=== PATIENT | female | born 1980 | race Caucasian/White ===

== ENCOUNTER 2021-04-11 03:49 | Emergency (ER) | payer OTHER, SELFPAY ==
[2021-04-11 04:09] VITALS: RESP 20; BMI 57.4
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
--- NOTE | 2021-04-11 05:08 | ECG_ITS ---
Test Reason : MEICAL CLEARANCE Blood Pressure : / mmHG Vent. Rate : 103 BPM Atrial Rate : 103 BPM P-R Int : 134 ms QRS Dur : 084 ms QT Int : 342 ms P-R-T Axes : 066 017 061 degrees QTc Int : 448 ms Sinus tachycardia Otherwise normal ECG When compared with ECG of 05-JUN-2018 19:51, No significant change was found Referred By: Li Saravia Electronically Signed By:ROWENA CHO
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
--- NOTE | 2021-04-11 05:39 | PC.NURSE ---
Patient now asking to be called Doug Arredondo instead of Mauro . Labs drawn and sent for analysis. Will continue to monitor.
[2021-04-11 05:41] LABS: Basophils Percent Auto 0.3 % (0-2); Mean Platelet Volume 9.2 fL (9.4-12.3); PLT CLUMP 1; SCAN SMEAR FLAG 1
[2021-04-11 05:43] LABS: Eosinophils Absolute Auto 0.3 X10*3/uL (0.0-0.4); Hematocrit 43.9 % (37-47); Hemoglobin 14.5 g/dl (12.0-16.0); Imm Gran Abs Auto 0.09 X10*3/uL (0.00-0.03); Imm Gran Pct Auto 0.9 % (0.0-0.4); Lymphocytes Absolute Auto 2.4 X10*3/uL (1.2-4.9); Mean Corpuscular Hemoglobin 31.1 pg (27.0-33.0); Mean Corpuscular Volume 94.2 fL (80-98); Monocytes Absolute Auto 0.8 X10*3/uL (0.1-1.2); Monocytes Percent Auto 7.7 % (2-11); Neutrophils Absolute Auto 6.3 X10*3/uL (2.0-8.3); Neutrophils Percent Auto 64.1 % (45-73); Platelet Count 303 X10*3/uL (160-400); Red Blood Count 4.66 X10*6/uL (4.20-5.50); Red Cell Distribution Width 14.2 % (11.0-16.0); White Blood Count 9.8 X10*3/uL (4.8-10.8)
[2021-04-11 05:44] LABS: MANUAL DIFF FLAG SCAN
[2021-04-11 05:46] LABS: Prothrombin Time 11.3 SEC (10.8-13.0)
[2021-04-11 05:51] VITALS: BMI 56.3
[2021-04-11 06:01] LABS: Ethanol < 10 mg/dL
[2021-04-11 06:03] LABS: SLIDE REVIEW VERIFIED
[2021-04-11 06:06] LABS: Acetaminophen LAB < 1 mcg/mL (<30); Salicylate < 5.0 mg/dL (15-30)
[2021-04-11 06:08] LABS: Alanine Aminotransferase 18 U/L (0-31); Albumin Level 4.2 g/dL (3.5-5.0); Alkaline Phosphatase 81 U/L (39-117); Anion Gap 16 (12-20); Aspartate Amino Transferase 14 U/L (5-31); Bilirubin Direct < 0.2 mg/dL (0.0-0.5); Bilirubin Total < 0.2 mg/dL (0.0-1.0); Blood Urea Nitrogen 15 mg/dL (9-16); Calcium 9.6 mg/dL (8.4-10.2); Carbon Dioxide 23 mmol/L (22-29); Chloride 98 mmol/L (96-108); Creatinine Clr Calc Pharmacy 124.5; Estimated Glomerular Filt Rate > 60; Glucose Random 87 mg/dL (60-115); Lipase 41 U/L (8-78); Potassium 4.2 mmol/L (3.3-5.1); Sodium 133 mmol/L (135-145); Total Protein 7.2 g/dL (6.5-8.0)
[2021-04-11 06:25] LABS: TSH reflex Free T4 1.44 uIU/mL (0.32-4.0)
--- NOTE | 2021-04-11 06:58 | PC.NURSE ---
received report from prior RN patient appears to be resting well breathing unlabored even breaths. patient appears in no distress.
--- NOTE | 2021-04-11 09:14 | PC.NURSE ---
spoke to Tommy from [facility] [phone], to verify levothyroxine dose, clozaril dose and current status. provider verified that patient was current on meds and had invega justice last on 04/08. unclear when she is next due however tommy is due to return a call and inform us.
[2021-04-11 09:44] LABS: Acetaminophen LAB < 1 mcg/mL (<30); Salicylate < 5.0 mg/dL (15-30)
[2021-04-11 09:50] LABS: Valproate 41.3 mcg/mL (50.0-100.0)
[2021-04-11 10:59] VITALS: BP 150/90; PULSE 85
--- NOTE | 2021-04-11 12:12 | PM.PSYCN ---
History of Present Illness Date of Service: t Chief Complaint: crisis Reason for Consult: Assessment of Clozaril dosing Discussed with referring provider: Yes Sources of Information: patient interviewed and chart reviewed HPI Narrative: The patient is a 40 year old descendant female with a long history of psychosis, institutionalized, living in a prison, referred to ED due to exacerbation of psychosis and violente behavior. The medication reconciliation form was unclear regarding her Clozaril dose and the date of Invega Sustenna. During the inteview, the pateint was very irritable and unable to give us a clear answer. She was internally preoccupied, uncooperative and very angry. Past Psychiatric History: Schizoaffective disorder bipolar type, last admission a few weeks ago. [facility] Medical History (Updated 04/11/21 @ 12:18 by Manuel Dee) Asthma Bipolar disorder Chronic post-traumatic stress disorder (PTSD) Chronic post-traumatic stress disorder (PTSD) Hypothyroidism PCOS (polycystic ovarian syndrome) Polysubstance abuse Psychosis Schizoaffective disorder Substance abuse Suicidal ideation Diagnostics Vital Signs (24Hr): Vital Signs - 24 hr 04/11/21 04:09 04/11/21 10:59 Pulse Rate 85 Respiratory Rate 20 Blood Pressure 150/90 H Body Mass Index 56.3 Labs Results: 04/11/21 05:33 04/11/21 05:33 Labs: Laboratory Results - last 48 hr 04/11/21 04/11/21 04/11/21 05:33 05:33 05:33 WBC 9.8 RBC 4.66 Hgb 14.5 Hct 43.9 MCV 94.2 MCH 31.1 MCHC 33.0 RDW 14.2 Plt Count 303 MPV 9.2 L Immature Gran % (Auto) 0.9 H Neut % (Auto) 64.1 Lymph % (Auto) 24.0 [place] % (Auto) 7.7 Eos % (Auto) 3.0 Baso % (Auto) 0.3 Lymph # (Auto) 2.4 [place] # (Auto) 0.8 Eos # (Auto) 0.3 Baso # (Auto) 0.0 Abs Immat Gran (auto) 0.09 H Absolute Neuts (auto) 6.3 Absolute Nucleated RBC 0.000 Nucleated RBC % (auto) 0.0 Smear Tech's Comments VERIFIED PT 11.3 INR 1.0 Sodium 133 L Potassium 4.2 Chloride 98 Carbon Dioxide 23 Anion Gap 16 BUN 15 Creatinine 0.95 Estim Creat Clear Calc 124.5 Estimated GFR > 60 Random Glucose 87 Calcium 9.6 Total Bilirubin < 0.2 Direct Bilirubin < 0.2 AST 14 ALT 18 Alkaline Phosphatase 81 Total Protein 7.2 Albumin 4.2 Lipase 41 TSH Salicylates Acetaminophen Valproic Acid Ethyl Alcohol 04/11/21 04/11/21 04/11/21 05:33 05:35 09:12 WBC RBC Hgb Hct MCV MCH MCHC RDW Plt Count MPV Immature Gran % (Auto) Neut % (Auto) Lymph % (Auto) [place] % (Auto) Eos % (Auto) Baso % (Auto) Lymph # (Auto) [place] # (Auto) Eos # (Auto) Baso # (Auto) Abs Immat Gran (auto) Absolute Neuts (auto) Absolute Nucleated RBC Nucleated RBC % (auto) Smear Tech's Comments PT INR Sodium Potassium Chloride Carbon Dioxide Anion Gap BUN Creatinine Estim Creat Clear Calc Estimated GFR Random Glucose Calcium Total Bilirubin Direct Bilirubin AST ALT Alkaline Phosphatase Total Protein Albumin Lipase TSH 1.44 Salicylates < 5.0 L < 5.0 L Acetaminophen < 1 < 1 Valproic Acid Ethyl Alcohol < 10 04/11/21 09:12 WBC RBC Hgb Hct MCV MCH MCHC RDW Plt Count MPV Immature Gran % (Auto) Neut % (Auto) Lymph % (Auto) [place] % (Auto) Eos % (Auto) Baso % (Auto) Lymph # (Auto) [place] # (Auto) Eos # (Auto) Baso # (Auto) Abs Immat Gran (auto) Absolute Neuts (auto) Absolute Nucleated RBC Nucleated RBC % (auto) Smear Tech's Comments PT INR Sodium Potassium Chloride Carbon Dioxide Anion Gap BUN Creatinine Estim Creat Clear Calc Estimated GFR Random Glucose Calcium Total Bilirubin Direct Bilirubin AST ALT Alkaline Phosphatase Total Protein Albumin Lipase TSH Salicylates Acetaminophen Valproic Acid 41.3 L Ethyl Alcohol Mental Status Exam Mental Status Exam Narrative: Disheveled, poor eye contact, uncooperative. Mood dysphoric, affect labile, inappropriate, thought process concrete, thought content responding to internal stimuli, unable to fully assess due to patient's irritability. Insight, judgment and impulse control poor. Medications Medications Current Medications Generic Name Dose Route Start Last Admin Trade Name Freq PRN Reason Stop Dose Admin Acetaminophen 975 mg 04/11/21 08:14 Acetaminophen 325 Mg Tablet PO TID PRN Pain Benztropine Mesylate 2 mg 04/11/21 09:00 04/11/21 10:57 Benztropine Mesylate 1 Mg Tablet PO Not Given BID [facility] Clozapine 75 mg 04/11/21 21:00 Clozapine 25 Mg Tablet PO BEDTIME [facility] Duloxetine HCl 60 mg 04/11/21 09:00 04/11/21 10:57 Duloxetine Hcl 60 Mg Capsule.Dr PO Not Given DAILY [facility] Ferrous Sulfate 324 mg 04/11/21 09:00 04/11/21 10:57 Ferrous Sulfate 324 Mg Tablet.Dr PO Not Given DAILY [facility] Furosemide 40 mg 04/11/21 09:00 04/11/21 10:57 Furosemide 40 Mg Tablet PO Not Given DAILY [facility] Protocol Lactulose 10 gm 04/11/21 10:15 Lactulose 20 Gm/30 Ml Solution PO DAILY [facility] Levothyroxine Sodium 100 mcg 04/11/21 10:45 Levothyroxine Sodium 100 Mcg Tablet PO DAILY@0630 [facility] Lidocaine 1 patch 04/11/21 10:30 Lidocaine 4 % Patch Adh..Patch TRANSDERMA DAILY [facility] Loratadine 10 mg 04/11/21 09:00 04/11/21 10:57 Loratadine 10 Mg Tablet PO Not Given DAILY [facility] Multivitamins/Vitamin C 1 tab 04/11/21 09:00 04/11/21 10:57 Multivitamin Tablet PO Not Given DAILY [facility] Paliperidone Palmitate 234 mg 05/05/21 08:15 Paliperidone Palmitate 234 Mg/1.5 Ml Syringe IM Q28D [facility] Ropinirole HCl 0.5 mg 04/11/21 21:00 Ropinirole Hcl 0.5 Mg Tablet PO BEDTIME [facility] Spironolactone 50 mg 04/11/21 09:00 04/11/21 10:59 Spironolactone 25 Mg Tablet PO Not Given BID [facility] Protocol Topiramate 50 mg 04/11/21 09:00 04/11/21 10:58 Topiramate 25 Mg Tablet PO Not Given BID [facility] Allergies Allergies Allergy/AdvReac Type Severity Reaction Status Date / Time banana [Banana] Allergy Severe ANAPHYLAXIS Verified 04/11/21 04:26 bee pollen [BEE STINGS] Allergy Unknown SWELLING Verified 04/11/21 04:26 cephalexin [Keflex] Allergy Unknown Unknown Verified 04/11/21 04:26 trazodone [TRAZODONE] Allergy Unknown BODY Verified 04/11/21 04:26 SITFFENS peanut [PEANUT] AdvReac Unknown TACHYCARDIA Verified 04/11/21 04:26 pistachio nut AdvReac Unknown TACHYCARDIA Verified 04/11/21 04:26 From KEFLEX Allergy Unknown UNKNOWN Uncoded 04/11/21 04:26 Assessment & Plan Assessment & Plan (1) Schizoaffective disorder: Status: Inactive Code(s): F25.9 - Schizoaffective disorder, unspecified Recommendations: Adult female with Schizoaffective disorder, currently psychotic and very labile, referred to ED for exacerbation of symptoms. Plan: Restart Clozaril at 75 mg po qhs Gather more collateral. Reassessment as demand Greater than 50% of the session was spent on counseling and/or coordination of care
== END 2021-04-11 12:58 | disposition home or self-care (01) ==
PROVIDERS: Emergency Medicine; Nurse Practitioner Family; Emergency Provider Emergency Medicine Emergency Medical Services
DX: M25.552 Pain in left hip (principal); M25.551 Pain in right hip; F25.9 Schizoaffective disorder, unspecified; Z79.899 Other long term (current) drug therapy
CPT/HCPCS: 36415; 80048; 80076; 80143; 80164; 80179; 82077; 83690; 84443; 85025; 85610; 93005; 99284

== ENCOUNTER 2021-04-16 11:15 | Outpatient (REF) | payer OTHER, SELFPAY ==
[2021-04-16 12:45] LABS: MANUAL DIFF FLAG NO
[2021-04-16 12:59] LABS: Basophils Percent Auto 0.4 % (0-2); Eosinophils Absolute Auto 0.1 X10*3/uL (0.0-0.4); Eosinophils Percent Auto 0.7 % (0-4); Hematocrit 42.5 % (37-47); Hemoglobin 14.3 g/dl (12.0-16.0); Imm Gran Abs Auto 0.09 X10*3/uL (0.00-0.03); Imm Gran Pct Auto 0.9 % (0.0-0.4); Lymphocytes Absolute Auto 1.6 X10*3/uL (1.2-4.9); Lymphocytes Percent Auto 16.2 % (20-40); Mean Corpuscular HGB Conc 33.6 g/dl (31.0-35.0); Mean Corpuscular Hemoglobin 31.6 pg (27.0-33.0); Mean Corpuscular Volume 93.8 fL (80-98); Mean Platelet Volume 9.4 fL (9.4-12.3); Monocytes Percent Auto 9.5 % (2-11); Neut%MD 72.3 %; Neutrophils Absolute Auto 7.2 X10*3/uL (2.0-8.3); Neutrophils Percent Auto 72.3 % (45-73); Platelet Count 397 X10*3/uL (160-400); Red Blood Count 4.53 X10*6/uL (4.20-5.50); Red Cell Distribution Width 13.9 % (11.0-16.0)
== END 2021-04-16 11:16 | disposition home or self-care (01) ==
LOC: HO.LAB 11:15
PROVIDERS: Visit Provider Psychiatry & Neurology Psychiatry
DX: Z79.899 Other long term (current) drug therapy (principal)
CPT/HCPCS: 36415; 85025; 85048

== ENCOUNTER 2021-04-22 13:35 | Outpatient (REF) | payer OTHER, SELFPAY | END 2021-04-22 13:36 | disposition home or self-care (01) | LOC: HO.LABR 13:35 | PROVIDERS: Visit Provider Psychiatry & Neurology Psychiatry | DX: Z13.89 Encounter for screening for other disorder (principal) ==

== ENCOUNTER 2021-04-23 21:57 | Emergency (ER) | payer OTHER, SELFPAY ==
[2021-04-23 22:26] VITALS: BP 130/84; PULSE 107; RESP 18; TEMP 37.2; O2SAT 96; BMI 106.7
--- NOTE | 2021-04-23 23:09 | PC.NURSE ---
Patient was verbally aggressive stated she was not si or hi and did not know why she was crisis. states she wants to go home and does not want to see a doctor. patient was not brought in on a section and was therfore free to leave spoke with charge nurse and natali rn aware of patient wanting to leave. was given back her belongings and ambulated out the door independently
== END 2021-04-23 23:08 | disposition left against medical advice (07) ==
LOC: HO.ED 22:34
PROVIDERS: Emergency Provider Emergency Medicine
DX: Z71.1 Person with feared health complaint in whom no diagnosis is made (principal)
CPT/HCPCS: 99281; 99282

== ENCOUNTER 2021-04-28 13:34 | Emergency (ER) | payer OTHER, SELFPAY ==
--- NOTE | 2021-04-28 14:17 | ED.PSYCH ---
HPI - Psych General Chief Complaint: Psychiatric Symptoms <JAQUI Lowery - Last Filed: 04/28/21 16:42> Stated Complaint: crisis combative <JAQUI Lowery - Last Filed: 04/28/21 16:42> Time Seen by Provider: 04/28/21 13:57 <JAQUI Lowery Last Filed: 04/28/21 16:42> Source: patient and EMS <JAQUI Lowery - Last Filed: 04/28/21 16:42> Mode of arrival: EMS <JAQUI Lowery - Last Filed: 04/28/21 16:42> Limitations: other (poor historian) <JAQUI Lowery - Last Filed: 04/28/21 16:42> History of Present Illness HPI Narrative: 41 y/o female with history of psychosis, schizoaffective disorder bipolar type, PTSD, PCOS, polystubstance abuse, morbid obesity with multiple psych admissions who resides in a Skilled Nursing presents to the ED via EMS with violent and combative behavior today at her Skilled Nursing. History is limited. Patient reports she was locked out of her Skilled Nursing when she got home at midnight last night. She sat outside all night. She admits to using a little bit of drugs and points to the back of her left hand but will not verify name or quantity of drug. She was recently here on 04/11/21 with SI and reported Tylenol OD but acetemenophen level was negative. She was seen by Crisis and Psych and it was recommended that she restart her Cloazaril 75 mg PO QHS. Unclear if this occurred on d/c or not. She is saying she is tired from being outside all night and does not want to talk. <JAQUI Lowery - Last Filed: 04/28/21 16:42> MD complaint: other (violent behavior) <JAQUI Lowery - Last Filed: 04/28/21 16:42> Onset (ago): hour(s) <JAQUI Lowery Last Filed: 04/28/21 16:42> Duration: intermittent and resolved prior to arrival <JAQUI Lowery Last Filed: 04/28/21 16:42> History of same: Yes <JAQUI Lowery Last Filed: 04/28/21 16:42> Relieving factors: medication <JAQUI Lowery Last Filed: 04/28/21 16:42> Exacerbating factors: none <JAQUI Lowery Last Filed: 04/28/21 16:42> Context: recent drug abuse <JAQUI Lowery Last Filed: 04/28/21 16:42> Associated psychiatric symptoms: none <JAQUI Lowery Last Filed: 04/28/21 16:42> Associated symptoms: insomnia <JAQUI Lowery Last Filed: 04/28/21 16:42> Treatments prior to arrival: none <JAQUI Lowery Last Filed: 04/28/21 16:42> Related Data Home Medications: Home Medications Medication Instructions Recorded Confirmed acetaminophen 975 mg PO TID PRN 04/11/21 04/28/21 benztropine 1 tab PO BID 04/11/21 04/28/21 divalproex 2 tab PO BEDTIME 04/11/21 04/28/21 duloxetine 1 cap PO DAILY 04/11/21 04/28/21 ferrous sulfate 1 tab PO DAILY 04/11/21 04/28/21 fluticasone propionate 1 spray INTRANASAL DAILY 04/11/21 04/28/21 furosemide 1 tab PO DAILY 04/11/21 04/28/21 lactulose 15 ml PO DAILY 04/11/21 04/28/21 levothyroxine 1 tab PO DAILY 04/11/21 04/28/21 lidocaine [Lidoderm] 1 patch TOPICAL DAILY 04/11/21 04/28/21 loratadine 1 tab PO DAILY 04/11/21 04/28/21 multivitamin with folic acid 1 tab PO DAILY 04/11/21 04/28/21 [Tab-A-Patel] paliperidone palmitate [Invega 234 mg IM Q28D 04/11/21 04/28/21 Sustenna] ropinirole 3 tab PO BEDTIME 04/11/21 04/28/21 spironolactone 1 tab PO BID 04/11/21 04/28/21 topiramate 1 tab PO BID 04/11/21 04/28/21 clozapine 50 mg PO BID 04/28/21 04/28/21 olanzapine 10 mg PO BID PRN 04/28/21 04/28/21 <JAQUI Lowery - Last Filed: 04/28/21 16:42> Allergies/Adverse Reactions: Allergies Allergy/AdvReac Type Severity Reaction Status Date / Time banana [Banana] Allergy Severe ANAPHYLAXIS Verified 04/11/21 04:26 bee pollen [BEE STINGS] Allergy Unknown SWELLING Verified 04/11/21 04:26 cephalexin [Keflex] Allergy Unknown Unknown Verified 04/11/21 04:26 trazodone [TRAZODONE] Allergy Unknown BODY Verified 04/11/21 04:26 SITFFENS peanut [PEANUT] AdvReac Unknown TACHYCARDIA Verified 04/11/21 04:26 pistachio nut AdvReac Unknown TACHYCARDIA Verified 04/11/21 04:26 From KEFLEX Allergy Unknown UNKNOWN Uncoded 04/11/21 04:26 <JAQUI Lowery - Last Filed: 04/28/21 16:42> Review of Systems Review of Systems: Yes Unobtainable due to mental status (refusing to answer) <JAQUI Lowery - Last Filed: 04/28/21 16:42> PMFSH Past Medical History Attestation statement: The following information was validated with the patient. <JAQUI Lowery - Last Filed: 04/28/21 16:42> Medical History: Medical History Asthma Bipolar disorder Chronic post-traumatic stress disorder (PTSD) Chronic post-traumatic stress disorder (PTSD) Hypothyroidism PCOS (polycystic ovarian syndrome) Polysubstance abuse Psychosis Schizoaffective disorder Substance abuse Suicidal ideation <JAQUI Lowery - Last Filed: 04/28/21 16:42> Social History Social History: Social History Advance Directives: No Advance Directives Information Provided: No Patient : No <JAQUI Lowery - Last Filed: 04/28/21 16:42> Physical Exam Vital Signs: Vital Signs: Last Vital Signs Temp 96.8 F 04/29/21 00:36 Pulse 106 H 04/29/21 00:36 Resp 19 04/29/21 00:36 BP 146/97 H 04/29/21 00:36 Pulse Ox 95 04/29/21 00:36 Body Mass Index 58.2 Appearance: Alert. Oriented X3. No acute distress. Eyes: Pupils equal, round and reactive to light. ENT: Pharynx normal. Neck: Normal inspection. Neck supple. CVS: Normal heart rate and rhythm. Pulses normal. Respiratory: No respiratory distress. Breath sounds normal. Abdomen: morbidly obese, soft and nontender. +BS x4 Skin: Skin warm and dry. Normal skin color. Normal skin turgor. No rashes. Extremities: No lower extremity edema. Right upper arm with mild scattered ecchymosis, dorsum of left hand with track tommy Neuro: Oriented X 3. No motor deficit. No sensory deficit. Flat affect. Uncooperative to interview. <JAQUI Lowery - Last Filed: 04/28/21 16:42> Vital Signs: Last Vital Signs Temp 96.8 F 04/29/21 00:36 Pulse 106 H 04/29/21 00:36 Resp 19 04/29/21 00:36 BP 146/97 H 04/29/21 00:36 Pulse Ox 95 04/29/21 00:36 Body Mass Index 58.2 <Maya Thomas DO - Last Filed: 04/29/21 07:03> Course Course Course Narrative: 41 y/o female with history of schizoaffective bipolar type, recurrent psychosis, PTSD who presents with aggressive violent behavior at her Skilled Nursing. Reported drug use. Denies SI at this time. <JAQUI Lowery - Last Filed: 04/28/21 16:42> Physician observation ended at 703am Patient seen and cleared by crisis. Plan is to follow up with therapist tomorrow. NAD, lungs clear, CV RRR, Abd nontender, Neuro intact. Disposition is for home. <Maya Thomas DO - Last Filed: 04/29/21 07:03> Reevaluation(s) Reevaluation #1: UA is negative for infection and substances. Blood workup still pending. Physician observation started at 4:41pm. Patient placed in physician observation because patient is awaiting [facility] evaluation for the possible need of inpatient psych admission. At the time observation was started patient's vital signs were stable. Patient is alert and oriented. Neuro exam is non-focal. CV: RRR and lungs are clear. Will continue to monitor. <JAQUI Lowery - Last Filed: 04/28/21 16:42> Consultations Consultation #1: BHN <JAQUI Lowery - Last Filed: 04/28/21 16:42> MDM - Psych Lab Data Result diagrams: : 04/28/21 17:48 04/28/21 17:48 <JAQUI Lowery - Last Filed: 04/28/21 16:42> Labs: Lab Results 04/28/21 04/28/21 04/28/21 Range/Units 16:00 16:00 17:01 WBC (4.8-10.8) X10*3/uL RBC (4.20-5.50) X10*6/uL Hgb (12.0-16.0) g/dl Hct (37-47) % MCV (80-98) fL MCH (27.0-33.0) pg MCHC (31.0-35.0) g/dl RDW (11.0-16.0) % Plt Count (160-400) X10*3/uL MPV (9.4-12.3) fL Immature Gran % (Auto) (0.0-0.4) % Neut % (Auto) (45-73) % Lymph % (Auto) (20-40) % [place] % (Auto) (2-11) % Eos % (Auto) (0-4) % Baso % (Auto) (0-2) % Lymph # (Auto) (1.2-4.9) X10*3/uL [place] # (Auto) (0.1-1.2) X10*3/uL Eos # (Auto) (0.0-0.4) X10*3/uL Baso # (Auto) (0.0-0.2) X10*3/uL Abs Immat Gran (auto) (0.00-0.03) X10*3/uL Absolute Neuts (auto) (2.0-8.3) X10*3/uL Absolute Nucleated RBC (0.0-0.012) X10*3/uL Nucleated RBC % (auto) (0.0-0.2) /100WBC Sodium (135-145) mmol/L Potassium (3.3-5.1) mmol/L Chloride (96-108) mmol/L Carbon Dioxide (22-29) mmol/L Anion Gap (12-20) BUN (9-16) mg/dL Creatinine (0.5-1.4) mg/dL Estim Creat Clear Calc Estimated GFR Random Glucose (60-115) mg/dL Calcium (8.4-10.2) mg/dL Total Bilirubin (0.0-1.0) mg/dL Direct Bilirubin (0.0-0.5) mg/dL AST (5-31) U/L ALT (0-31) U/L Alkaline Phosphatase (39-117) U/L Total Protein (6.5-8.0) g/dL Albumin (3.5-5.0) g/dL Urine Color YELLOW Urine Appearance HAZY Urine pH 7.0 (5.0-8.0) Ur Specific Dexter <= 1.005 (1.005-1.025) Urine Protein NEG (NEG-TRACE) MG/DL Urine Glucose (UA) NEG (NEG) MG/DL Urine Ketones NEG (NEG) MG/DL Urine Blood NEG (NEG) Urine Nitrite NEG (NEG) Ur Leukocyte Esterase NEG (NEG) Salicylates (15-30) mg/dL Urine Opiates Screen Not Detected (Not Detect) Acetaminophen (<30) mcg/mL Ur Barbiturates Screen Not Detected (Not Detect) Ur Phencyclidine Scrn Not Detected (Not Detect) Ur Amphetamines Screen Not Detected (Not Detect) U Benzodiazepines Scrn Not Detected (Not Detect) Urine Cocaine Screen Not Detected (Not Detect) U Marijuana (THC) Screen Not Detected (Not Detect) Ethyl Alcohol mg/dL COVID-19 (ROCKY) Negative (Negative) COVID-19 Clin Com See Note 04/28/21 04/28/21 04/28/21 Range/Units 17:48 17:48 17:48 WBC 8.6 (4.8-10.8) X10*3/uL RBC 4.55 (4.20-5.50) X10*6/uL Hgb 14.4 (12.0-16.0) g/dl Hct 42.5 (37-47) % MCV 93.4 (80-98) fL MCH 31.6 (27.0-33.0) pg MCHC 33.9 (31.0-35.0) g/dl RDW 14.4 (11.0-16.0) % Plt Count 357 (160-400) X10*3/uL MPV 8.9 L (9.4-12.3) fL Immature Gran % (Auto) 0.2 (0.0-0.4) % Neut % (Auto) 64.1 (45-73) % Lymph % (Auto) 23.5 (20-40) % [place] % (Auto) 10.1 (2-11) % Eos % (Auto) 1.9 (0-4) % Baso % (Auto) 0.2 (0-2) % Lymph # (Auto) 2.0 (1.2-4.9) X10*3/uL [place] # (Auto) 0.9 (0.1-1.2) X10*3/uL Eos # (Auto) 0.2 (0.0-0.4) X10*3/uL Baso # (Auto) 0.0 (0.0-0.2) X10*3/uL Abs Immat Gran (auto) 0.02 (0.00-0.03) X10*3/uL Absolute Neuts (auto) 5.5 (2.0-8.3) X10*3/uL Absolute Nucleated RBC 0.000 (0.0-0.012) X10*3/uL Nucleated RBC % (auto) 0.0 (0.0-0.2) /100WBC Sodium 135 (135-145) mmol/L Potassium 4.1 (3.3-5.1) mmol/L Chloride 102 (96-108) mmol/L Carbon Dioxide 24 (22-29) mmol/L Anion Gap 13 (12-20) BUN 10 (9-16) mg/dL Creatinine 0.81 (0.5-1.4) mg/dL Estim Creat Clear Calc 138.1 Estimated GFR > 60 Random Glucose 100 (60-115) mg/dL Calcium 9.2 (8.4-10.2) mg/dL Total Bilirubin 0.3 (0.0-1.0) mg/dL Direct Bilirubin < 0.2 (0.0-0.5) mg/dL AST 13 (5-31) U/L ALT 13 (0-31) U/L Alkaline Phosphatase 74 (39-117) U/L Total Protein 6.4 L (6.5-8.0) g/dL Albumin 3.8 (3.5-5.0) g/dL Urine Color Urine Appearance Urine pH (5.0-8.0) Ur Specific Dexter (1.005-1.025) Urine Protein (NEG-TRACE) MG/DL Urine Glucose (UA) (NEG) MG/DL Urine Ketones (NEG) MG/DL Urine Blood (NEG) Urine Nitrite (NEG) Ur Leukocyte Esterase (NEG) Salicylates (15-30) mg/dL Urine Opiates Screen (Not Detect) Acetaminophen (<30) mcg/mL Ur Barbiturates Screen (Not Detect) Ur Phencyclidine Scrn (Not Detect) Ur Amphetamines Screen (Not Detect) U Benzodiazepines Scrn (Not Detect) Urine Cocaine Screen (Not Detect) U Marijuana (THC) Screen (Not Detect) Ethyl Alcohol < 10 mg/dL COVID-19 ([facility]OCKY) (Negative) COVID-19 Clin Com 04/28/21 Range/Units 17:48 WBC (4.8-10.8) X10*3/uL RBC (4.20-5.50) X10*6/uL Hgb (12.0-16.0) g/dl Hct (37-47) % MCV (80-98) fL MCH (27.0-33.0) pg MCHC (31.0-35.0) g/dl RDW (11.0-16.0) % Plt Count (160-400) X10*3/uL MPV (9.4-12.3) fL Immature Gran % (Auto) (0.0-0.4) % Neut % (Auto) (45-73) % Lymph % (Auto) (20-40) % [place] % (Auto) (2-11) % Eos % (Auto) (0-4) % Baso % (Auto) (0-2) % Lymph # (Auto) (1.2-4.9) X10*3/uL [place] # (Auto) (0.1-1.2) X10*3/uL Eos # (Auto) (0.0-0.4) X10*3/uL Baso # (Auto) (0.0-0.2) X10*3/uL Abs Immat Gran (auto) (0.00-0.03) X10*3/uL Absolute Neuts (auto) (2.0-8.3) X10*3/uL Absolute Nucleated RBC (0.0-0.012) X10*3/uL Nucleated RBC % (auto) (0.0-0.2) /100WBC Sodium (135-145) mmol/L Potassium (3.3-5.1) mmol/L Chloride (96-108) mmol/L Carbon Dioxide (22-29) mmol/L Anion Gap (12-20) BUN (9-16) mg/dL Creatinine (0.5-1.4) mg/dL Estim Creat Clear Calc Estimated GFR Random Glucose (60-115) mg/dL Calcium (8.4-10.2) mg/dL Total Bilirubin (0.0-1.0) mg/dL Direct Bilirubin (0.0-0.5) mg/dL AST (5-31) U/L ALT (0-31) U/L Alkaline Phosphatase (39-117) U/L Total Protein (6.5-8.0) g/dL Albumin (3.5-5.0) g/dL Urine Color Urine Appearance Urine pH (5.0-8.0) Ur Specific Dexter (1.005-1.025) Urine Protein (NEG-TRACE) MG/DL Urine Glucose (UA) (NEG) MG/DL Urine Ketones (NEG) MG/DL Urine Blood (NEG) Urine Nitrite (NEG) Ur Leukocyte Esterase (NEG) Salicylates < 5.0 L (15-30) mg/dL Urine Opiates Screen (Not Detect) Acetaminophen < 1 (<30) mcg/mL Ur Barbiturates Screen (Not Detect) Ur Phencyclidine Scrn (Not Detect) Ur Amphetamines Screen (Not Detect) U Benzodiazepines Scrn (Not Detect) Urine Cocaine Screen (Not Detect) U Marijuana (THC) Screen (Not Detect) Ethyl Alcohol mg/dL COVID-19 (ROCKY) (Negative) COVID-19 Clin Com <JAQUI Lowery - Last Filed: 04/28/21 16:42> Lab Results 06/15/21 06/15/21 06/15/21 Range/Units 16:00 16:00 17:01 WBC (4.8-10.8) X10*3/uL RBC (4.20-5.50) X10*6/uL Hgb (12.0-16.0) g/dl Hct (37-47) % MCV (80-98) fL MCH (27.0-33.0) pg MCHC (31.0-35.0) g/dl RDW (11.0-16.0) % Plt Count (160-400) X10*3/uL MPV (9.4-12.3) fL Immature Gran % (Auto) (0.0-0.4) % Neut % (Auto) (45-73) % Lymph % (Auto) (20-40) % [place] % (Auto) (2-11) % Eos % (Auto) (0-4) % Baso % (Auto) (0-2) % Lymph # (Auto) (1.2-4.9) X10*3/uL [place] # (Auto) (0.1-1.2) X10*3/uL Eos # (Auto) (0.0-0.4) X10*3/uL Baso # (Auto) (0.0-0.2) X10*3/uL Abs Immat Gran (auto) (0.00-0.03) X10*3/uL Absolute Neuts (auto) (2.0-8.3) X10*3/uL Absolute Nucleated RBC (0.0-0.012) X10*3/uL Nucleated RBC % (auto) (0.0-0.2) /100WBC Sodium (135-145) mmol/L Potassium (3.3-5.1) mmol/L Chloride (96-108) mmol/L Carbon Dioxide (22-29) mmol/L Anion Gap (12-20) BUN (9-16) mg/dL Creatinine (0.5-1.4) mg/dL Estim Creat Clear Calc Estimated GFR Random Glucose (60-115) mg/dL Calcium (8.4-10.2) mg/dL Total Bilirubin (0.0-1.0) mg/dL Direct Bilirubin (0.0-0.5) mg/dL AST (5-31) U/L ALT (0-31) U/L Alkaline Phosphatase (39-117) U/L Total Protein (6.5-8.0) g/dL Albumin (3.5-5.0) g/dL Urine Color YELLOW Urine Appearance HAZY Urine pH 7.0 (5.0-8.0) Ur Specific Dexter <= 1.005 (1.005-1.025) Urine Protein NEG (NEG-TRACE) MG/DL Urine Glucose (UA) NEG (NEG) MG/DL Urine Ketones NEG (NEG) MG/DL Urine Blood NEG (NEG) Urine Nitrite NEG (NEG) Ur Leukocyte Esterase NEG (NEG) Salicylates (15-30) mg/dL Urine Opiates Screen Not Detected (Not Detect) Acetaminophen (<30) mcg/mL Ur Barbiturates Screen Not Detected (Not Detect) Ur Phencyclidine Scrn Not Detected (Not Detect) Ur Amphetamines Screen Not Detected (Not Detect) U Benzodiazepines Scrn Not Detected (Not Detect) Urine Cocaine Screen Not Detected (Not Detect) U Marijuana (THC) Screen Not Detected (Not Detect) Ethyl Alcohol mg/dL COVID-19 ([facility]OCK[facility]) Negative (Negative) COVID-19 Clin Com See Note 04/28/21 04/28/21 04/28/21 Range/Units 17:48 17:48 17:48 WBC 8.6 (4.8-10.8) X10*3/uL RBC 4.55 (4.20-5.50) X10*6/uL Hgb 14.4 (12.0-16.0) g/dl Hct 42.5 (37-47) % MCV 93.4 (80-98) fL MCH 31.6 (27.0-33.0) pg MCHC 33.9 (31.0-35.0) g/dl RDW 14.4 (11.0-16.0) % Plt Count 357 (160-400) X10*3/uL MPV 8.9 L (9.4-12.3) fL Immature Gran % (Auto) 0.2 (0.0-0.4) % Neut % (Auto) 64.1 (45-73) % Lymph % (Auto) 23.5 (20-40) % [place] % (Auto) 10.1 (2-11) % Eos % (Auto) 1.9 (0-4) % Baso % (Auto) 0.2 (0-2) % Lymph # (Auto) 2.0 (1.2-4.9) X10*3/uL [place] # (Auto) 0.9 (0.1-1.2) X10*3/uL Eos # (Auto) 0.2 (0.0-0.4) X10*3/uL Baso # (Auto) 0.0 (0.0-0.2) X10*3/uL Abs Immat Gran (auto) 0.02 (0.00-0.03) X10*3/uL Absolute Neuts (auto) 5.5 (2.0-8.3) X10*3/uL Absolute Nucleated RBC 0.000 (0.0-0.012) X10*3/uL Nucleated RBC % (auto) 0.0 (0.0-0.2) /100WBC Sodium 135 (135-145) mmol/L Potassium 4.1 (3.3-5.1) mmol/L Chloride 102 (96-108) mmol/L Carbon Dioxide 24 (22-29) mmol/L Anion Gap 13 (12-20) BUN 10 (9-16) mg/dL Creatinine 0.81 (0.5-1.4) mg/dL Estim Creat Clear Calc 138.1 Estimated GFR > 60 Random Glucose 100 (60-115) mg/dL Calcium 9.2 (8.4-10.2) mg/dL Total Bilirubin 0.3 (0.0-1.0) mg/dL Direct Bilirubin < 0.2 (0.0-0.5) mg/dL AST 13 (5-31) U/L ALT 13 (0-31) U/L Alkaline Phosphatase 74 (39-117) U/L Total Protein 6.4 L (6.5-8.0) g/dL Albumin 3.8 (3.5-5.0) g/dL Urine Color Urine Appearance Urine pH (5.0-8.0) Ur Specific Dexter (1.005-1.025) Urine Protein (NEG-TRACE) MG/DL Urine Glucose (UA) (NEG) MG/DL Urine Ketones (NEG) MG/DL Urine Blood (NEG) Urine Nitrite (NEG) Ur Leukocyte Esterase (NEG) Salicylates (15-30) mg/dL Urine Opiates Screen (Not Detect) Acetaminophen (<30) mcg/mL Ur Barbiturates Screen (Not Detect) Ur Phencyclidine Scrn (Not Detect) Ur Amphetamines Screen (Not Detect) U Benzodiazepines Scrn (Not Detect) Urine Cocaine Screen (Not Detect) U Marijuana (THC) Screen (Not Detect) Ethyl Alcohol < 10 mg/dL COVID-19 ([facility]) (Negative) COVID-19 Clin Com 04/28/21 Range/Units 17:48 WBC (4.8-10.8) X10*3/uL RBC (4.20-5.50) X10*6/uL Hgb (12.0-16.0) g/dl Hct (37-47) % MCV (80-98) fL MCH (27.0-33.0) pg MCHC (31.0-35.0) g/dl RDW (11.0-16.0) % Plt Count (160-400) X10*3/uL MPV (9.4-12.3) fL Immature Gran % (Auto) (0.0-0.4) % Neut % (Auto) (45-73) % Lymph % (Auto) (20-40) % [place] % (Auto) (2-11) % Eos % (Auto) (0-4) % Baso % (Auto) (0-2) % Lymph # (Auto) (1.2-4.9) X10*3/uL [place] # (Auto) (0.1-1.2) X10*3/uL Eos # (Auto) (0.0-0.4) X10*3/uL Baso # (Auto) (0.0-0.2) X10*3/uL Abs Immat Gran (auto) (0.00-0.03) X10*3/uL Absolute Neuts (auto) (2.0-8.3) X10*3/uL Absolute Nucleated RBC (0.0-0.012) X10*3/uL Nucleated RBC % (auto) (0.0-0.2) /100WBC Sodium (135-145) mmol/L Potassium (3.3-5.1) mmol/L Chloride (96-108) mmol/L Carbon Dioxide (22-29) mmol/L Anion Gap (12-20) BUN (9-16) mg/dL Creatinine (0.5-1.4) mg/dL Estim Creat Clear Calc Estimated GFR Random Glucose (60-115) mg/dL Calcium (8.4-10.2) mg/dL Total Bilirubin (0.0-1.0) mg/dL Direct Bilirubin (0.0-0.5) mg/dL AST (5-31) U/L ALT (0-31) U/L Alkaline Phosphatase (39-117) U/L Total Protein (6.5-8.0) g/dL Albumin (3.5-5.0) g/dL Urine Color Urine Appearance Urine pH (5.0-8.0) Ur Specific Dexter (1.005-1.025) Urine Protein (NEG-TRACE) MG/DL Urine Glucose (UA) (NEG) MG/DL Urine Ketones (NEG) MG/DL Urine Blood (NEG) Urine Nitrite (NEG) Ur Leukocyte Esterase (NEG) Salicylates < 5.0 L (15-30) mg/dL Urine Opiates Screen (Not Detect) Acetaminophen < 1 (<30) mcg/mL Ur Barbiturates Screen (Not Detect) Ur Phencyclidine Scrn (Not Detect) Ur Amphetamines Screen (Not Detect) U Benzodiazepines Scrn (Not Detect) Urine Cocaine Screen (Not Detect) U Marijuana (THC) Screen (Not Detect) Ethyl Alcohol mg/dL COVID-19 ([facility]) (Negative) COVID-19 Clin Com <Maya Thomas, DO - Last Filed: 04/29/21 07:03> Discharge Plan Discharge Prescriptions: No Action furosemide 40 mg tablet 1 tab PO DAILY RF: 0 acetaminophen 325 mg tablet 975 mg PO TID PRN (Reason: Pain, Mild) RF: 0 divalproex 500 mg tablet,delayed release (DR/EC) 2 tab PO BEDTIME RF: 0 levothyroxine 100 mcg tablet 1 tab PO DAILY RF: 0 ropinirole 0.5 mg tablet 3 tab PO BEDTIME RF: 0 benztropine 2 mg tablet 1 tab PO BID RF: 0 ferrous sulfate 325 mg (65 mg iron) tablet,delayed release (DR/EC) 1 tab PO DAILY RF: 0 fluticasone propionate 50 mcg/actuation spray,suspension 1 spray intranasal DAILY RF: 0 loratadine 10 mg tablet 1 tab PO DAILY RF: 0 spironolactone 50 mg tablet 1 tab PO BID RF: 0 topiramate 50 mg tablet 1 tab PO BID RF: 0 duloxetine 60 mg capsule,delayed release(DR/EC) 1 cap PO DAILY RF: 0 Invega Sustenna 234 mg/1.5 mL syringe 234 mg IM Q28D RF: 0 multivitamin with folic acid [Tab-A-Patel] 400 mcg tablet 1 tab PO DAILY RF: 0 lidocaine [Lidoderm] 5 % Adhesive Patch,Medicated 1 patch TOPICAL DAILY RF: 0 lactulose 10 gram/15 mL solution 15 ml PO DAILY RF: 0 clozapine 100 mg tablet 50 mg PO BID RF: 0 olanzapine 10 mg tablet 10 mg PO BID PRN (Reason: Agitation) RF: 0 <JAQUI Lowery - Last Filed: 04/28/21 16:42>
[2021-04-28 15:05] VITALS: BP 114/80; PULSE 92; RESP 18; TEMP 36.2; O2SAT 93; BMI 58.2
--- NOTE | 2021-04-28 15:24 | PC.NURSE ---
Patient asking how long she has been here and how she got here. Patient made aware of the situation and the way in which she was brought here. Patient resting quietly at this time.
--- NOTE | 2021-04-28 15:33 | PC.NURSE ---
Numerous pills found in pt's pocket. Each pills identified using [employer]. All of the pills were pt's home medications that are not controlled.
[2021-04-28 16:11] LABS: Glucose Urine UA NEG (NEG); Leukocyte Esterase Urine NEG (NEG); Nitrite Urine NEG (NEG); Specific Gravity - Urine <= 1.005 (1.005-1.025); Urine Blood NEG (NEG); Urine Ketones NEG (NEG); Urine Protein NEG (NEG-TRACE)
[2021-04-28 16:12] LABS: Appearance Urine HAZY; Color Urine YELLOW
[2021-04-28 16:31] LABS: Amphetamine Screen Urine Not Detected (Not Detect); Barbiturates, Urine Not Detected (Not Detect); Benzodiazepines Screen Urine Not Detected (Not Detect); Cannabinoid Screen Urine Not Detected (Not Detect); Cocaine Screen Urine Not Detected (Not Detect); Opiate Screen Urine Not Detected (Not Detect); Phencyclidine Screen Urine Not Detected (Not Detect)
[2021-04-28 17:28] LABS: COVID-19 Test Negative (Negative); IDNOW Serial# 9DD0AD1C
[2021-04-28 17:55] LABS: MANUAL DIFF FLAG NO
[2021-04-28 17:56] LABS: Basophils Percent Auto 0.2 % (0-2); Eosinophils Absolute Auto 0.2 X10*3/uL (0.0-0.4); Eosinophils Percent Auto 1.9 % (0-4); Hematocrit 42.5 % (37-47); Hemoglobin 14.4 g/dl (12.0-16.0); Imm Gran Abs Auto 0.02 X10*3/uL (0.00-0.03); Imm Gran Pct Auto 0.2 % (0.0-0.4); Lymphocytes Percent Auto 23.5 % (20-40); Mean Corpuscular HGB Conc 33.9 g/dl (31.0-35.0); Mean Corpuscular Hemoglobin 31.6 pg (27.0-33.0); Mean Corpuscular Volume 93.4 fL (80-98); Mean Platelet Volume 8.9 fL (9.4-12.3); Monocytes Absolute Auto 0.9 X10*3/uL (0.1-1.2); Monocytes Percent Auto 10.1 % (2-11); Neutrophils Absolute Auto 5.5 X10*3/uL (2.0-8.3); Neutrophils Percent Auto 64.1 % (45-73); Platelet Count 357 X10*3/uL (160-400); Red Blood Count 4.55 X10*6/uL (4.20-5.50); Red Cell Distribution Width 14.4 % (11.0-16.0); White Blood Count 8.6 X10*3/uL (4.8-10.8)
[2021-04-28] MEDS: Spironolactone 25 MG TABLET 50 MG PO (18:10)
[2021-04-28 18:18] LABS: Ethanol < 10 mg/dL
[2021-04-28 18:21] LABS: Alanine Aminotransferase 13 U/L (0-31); Albumin Level 3.8 g/dL (3.5-5.0); Alkaline Phosphatase 74 U/L (39-117); Anion Gap 13 (12-20); Aspartate Amino Transferase 13 U/L (5-31); Bilirubin Direct < 0.2 mg/dL (0.0-0.5); Bilirubin Total 0.3 mg/dL (0.0-1.0); Blood Urea Nitrogen 10 mg/dL (9-16); Calcium 9.2 mg/dL (8.4-10.2); Carbon Dioxide 24 mmol/L (22-29); Chloride 102 mmol/L (96-108); Creatinine Clr Calc Pharmacy 138.1; Estimated Glomerular Filt Rate > 60; Glucose Random 100 mg/dL (60-115); Potassium 4.1 mmol/L (3.3-5.1); Sodium 135 mmol/L (135-145); Total Protein 6.4 g/dL (6.5-8.0)
[2021-04-28 18:22] LABS: Salicylate < 5.0 mg/dL (15-30)
[2021-04-28 18:25] LABS: Acetaminophen LAB < 1 mcg/mL (<30)
[2021-04-28 19:22] VITALS: RESP 18
--- NOTE | 2021-04-28 20:03 | PC.NURSE ---
Call placed to [facility] to find out when pt last had her invega shot. Staff not certain of exact date, per pharmacy records med was filled on the . This database report writer holding med for now so as not to admin a second dose this month.
--- NOTE | 2021-04-28 21:29 | MHC.CARE ---
CARE team attempted to meet with pt to complete evaluation. Pt was sleeping in her room, snoring softly, and barely roused when this marketing copywriter approached. With some prompting pt opened her eyes slightly and said what do you want, Christina? When this marketing copywriter reintroduced self to the pt, she pulled the blanket up closer to her face and began to snore, louder this time. Pt continued to not respond to verbal prompts. This marketing copywriter contacted pt's chcf ([address] [phone]) and spoke with the overnight staff person. It was reported that pt has been on alert with [facility] crisis for the past few days. Per medical record, pt receives her monthly invega sustenna injection on the , and this staff person was unable to confirm or deny whether pt received that dose prior to arrival to the ED, then they speculated that the pt had been refusing a lot of things earlier. At that time, it was discussed that regardless of the plan of care that it would be unwise for pt to return to the chcf when there is only one person working in the program. Program will be updated in the morning re: status of evaluation/disposition. This marketing copywriter then contacted [facility] crisis and spoke with prison guard supervisor Michel re: pt being on alert for the past few days. Michel reported that the pt had been evaluated on 04/20/21 and put on alert since then, also remarking that pt is often on alert status with the crisis team. Pt is well known to [facility], primarily the [place] crisis team where pt had resided in a [facility] prior to being transferred to a program in [place] last month (March 2021). Per report, at baseline pt demonstrates odd behavior and may present with delusions, and that history has shown that when pt does decompensate that it can get bad quickly. Michel reported that pt is on the waitlist for a longer team care program (possibly [facility]?). CARE team will make additional attempts to engage pt in assessment tonight.
--- NOTE | 2021-04-28 21:29 | PHA.MEDREC ---
Pharmacy Consult ? Medication Reconciliation Pharmacy has completed the medication reconciliation.
--- NOTE | 2021-04-28 22:49 | PC.NURSE ---
This RN attempted to medicate pt with HS meds,n pt regusing meds at this time
[2021-04-29 00:36] VITALS: BP 146/97; PULSE 106; RESP 19; TEMP 36; O2SAT 95
--- NOTE | 2021-04-29 02:05 | MHC.CARE ---
Pt requesting to go home. This tag writer met with pt to discuss what happened prior to her coming to the ED. She expressed that she has been frustrated with the senior analyst programmer and staff at the senior living since she was moved there from [place] in early March 2021, and that she was upset with the director today because she was told that she would have to earn access to her money. Pt denied having any thoughts or urges to harm self or others and repeatedly advocated for being discharged so that she can walk back. It was explained to pt that she can't be discharged from the hospital at 1AM with no ride, and that it's unlikely that a ride will be available at this hour. Pt was encouraged to try to sleep while she's here in the pod and that she can be discharged and transported back to her senior living in the morning. After much coaxing, pt returned to her room. ED provider is in agreement with plan of care. Please call [facility] before [phone]
== END 2021-04-29 07:51 | disposition home or self-care (01) ==
PROVIDERS: Physician Assistant; Emergency Provider Emergency Medicine
DX: F41.9 Anxiety disorder, unspecified (principal); F43.10 Post-traumatic stress disorder, unspecified; F25.0 Schizoaffective disorder, bipolar type; Z79.899 Other long term (current) drug therapy; Z20.822 Contact with and (suspected) exposure to COVID-19
CPT/HCPCS: 36415; 80048; 80076; 80143; 80179; 80307; 81003; 82077; 85025; 87635; 96372; 99285

== ENCOUNTER 2021-04-30 11:01 | Outpatient (REF) | payer OTHER, SELFPAY ==
[2021-04-30 11:31] LABS: MANUAL DIFF FLAG NO
[2021-04-30 11:34] LABS: Basophils Percent Auto 0.4 % (0-2); Eosinophils Absolute Auto 0.1 X10*3/uL (0.0-0.4); Eosinophils Percent Auto 1.2 % (0-4); Hematocrit 44.4 % (37-47); Hemoglobin 14.9 g/dl (12.0-16.0); Imm Gran Abs Auto 0.05 X10*3/uL (0.00-0.03); Imm Gran Pct Auto 0.5 % (0.0-0.4); Lymphocytes Absolute Auto 2.1 X10*3/uL (1.2-4.9); Lymphocytes Percent Auto 21.4 % (20-40); Mean Corpuscular HGB Conc 33.6 g/dl (31.0-35.0); Mean Corpuscular Hemoglobin 31.7 pg (27.0-33.0); Mean Corpuscular Volume 94.5 fL (80-98); Monocytes Absolute Auto 0.8 X10*3/uL (0.1-1.2); Monocytes Percent Auto 8.5 % (2-11); Neutrophils Absolute Auto 6.5 X10*3/uL (2.0-8.3); Platelet Count 369 X10*3/uL (160-400); Red Cell Distribution Width 14.3 % (11.0-16.0); White Blood Count 9.6 X10*3/uL (4.8-10.8)
== END 2021-04-30 11:02 | disposition home or self-care (01) ==
LOC: HO.LABR 11:01
PROVIDERS: Visit Provider Psychiatry & Neurology Psychiatry
DX: Z79.899 Other long term (current) drug therapy (principal)
CPT/HCPCS: 36415; 85025

== ENCOUNTER 2021-05-07 12:41 | Outpatient (REF) | payer OTHER, SELFPAY ==
[2021-05-07 14:01] LABS: MANUAL DIFF FLAG NO
[2021-05-07 14:11] LABS: Basophils Percent Auto 0.4 % (0-2); Eosinophils Absolute Auto 0.1 X10*3/uL (0.0-0.4); Eosinophils Percent Auto 1.4 % (0-4); Hematocrit 43.6 % (37-47); Hemoglobin 14.6 g/dl (12.0-16.0); Imm Gran Abs Auto 0.04 X10*3/uL (0.00-0.03); Imm Gran Pct Auto 0.4 % (0.0-0.4); Lymphocytes Absolute Auto 2.3 X10*3/uL (1.2-4.9); Lymphocytes Percent Auto 23.6 % (20-40); Mean Corpuscular HGB Conc 33.5 g/dl (31.0-35.0); Mean Corpuscular Volume 95.6 fL (80-98); Mean Platelet Volume 9.5 fL (9.4-12.3); Monocytes Absolute Auto 0.8 X10*3/uL (0.1-1.2); Monocytes Percent Auto 8.3 % (2-11); Neutrophils Absolute Auto 6.3 X10*3/uL (2.0-8.3); Neutrophils Percent Auto 65.9 % (45-73); Platelet Count 409 X10*3/uL (160-400); Red Blood Count 4.56 X10*6/uL (4.20-5.50); Red Cell Distribution Width 14.7 % (11.0-16.0); White Blood Count 9.6 X10*3/uL (4.8-10.8)
== END 2021-05-07 12:42 | disposition home or self-care (01) ==
LOC: HO.LABR 12:41
PROVIDERS: PCP Nurse Practitioner Acute Care; Visit Provider Psychiatry & Neurology Psychiatry
DX: Z79.899 Other long term (current) drug therapy (principal)
CPT/HCPCS: 36415; 85025

== ENCOUNTER 2021-05-14 12:34 | Outpatient (REF) | payer OTHER, SELFPAY ==
[2021-05-14 13:40] LABS: MANUAL DIFF FLAG NO
[2021-05-14 13:46] LABS: Basophils Absolute Auto 0.1 X10*3/uL (0.0-0.2); Basophils Percent Auto 0.4 % (0-2); Eosinophils Absolute Auto 0.1 X10*3/uL (0.0-0.4); Eosinophils Percent Auto 0.5 % (0-4); Hemoglobin 14.6 g/dl (12.0-16.0); Imm Gran Abs Auto 0.05 X10*3/uL (0.00-0.03); Imm Gran Pct Auto 0.4 % (0.0-0.4); Lymphocytes Percent Auto 17.7 % (20-40); Mean Corpuscular HGB Conc 33.2 g/dl (31.0-35.0); Mean Corpuscular Hemoglobin 31.5 pg (27.0-33.0); Mean Platelet Volume 9.5 fL (9.4-12.3); Monocytes Percent Auto 8.4 % (2-11); Neut%MD 72.6 %; Neutrophils Absolute Auto 8.2 X10*3/uL (2.0-8.3); Neutrophils Percent Auto 72.6 % (45-73); Platelet Count 403 X10*3/uL (160-400); Red Blood Count 4.63 X10*6/uL (4.20-5.50); Red Cell Distribution Width 14.6 % (11.0-16.0); WBCANC 11.3 X10*3/uL; White Blood Count 11.3 X10*3/uL (4.8-10.8)
== END 2021-05-14 12:35 | disposition home or self-care (01) ==
LOC: HO.LABR 12:34
PROVIDERS: Visit Provider Psychiatry & Neurology Psychiatry
DX: Z79.899 Other long term (current) drug therapy (principal)
CPT/HCPCS: 36415; 85025; 85048

== ENCOUNTER 2021-05-19 00:42 | Inpatient (IN) | payer OTHER, SELFPAY ==
[2021-05-19] VITALS (7 sets, daily range): BP systolic 000–138; BP diastolic 00–85; PULSE 0–106; RESP 0–22; TEMP -17.7–0; O2SAT 0–97; BMI 54.8
--- NOTE | ~2021-05-19 | XR_ITS ---
EXAMINATION: XR ABDOMEN KUB CLINICAL INDICATION: Question rectal foreign body. COMPARISON: Radiographs lumbar spine 12/21/2017 TECHNIQUE: AP x2 views of the abdomen. FINDINGS: There is scattered gas in the bowel of normal caliber. No gaseous dilatation of bowel or abnormal collections of gas. There is no visible radiopaque foreign body overlying the lower pelvis or rectum. Examination is limited by patient body habitus. No visible acute bony abnormality. XR/XR KUB IMPRESSION: 1. Unremarkable bowel gas. 2. No visible radiopaque foreign body overlying lower pelvis or rectum. 3. Examination limited by patient body habitus. If clinically indicated, further assessment may be obtained with direct visualization or targeted CT.
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
--- NOTE | 2021-05-19 03:43 | PC.NURSE ---
pt has periods of waking up and shouting at staff using inappropiate words, pt is in hospital clothing, security present. all belongings locked. pt has a sitter present
--- NOTE | 2021-05-19 03:52 | PC.NURSE ---
pt has a mulitple collection of pills found under her breast, and she had a hany cup full and attempted to take one but spit it out.
--- NOTE | 2021-05-19 07:05 | PC.NURSE ---
pt has been sleeping thur the night, pt gets very angry and aggressive with care pt was allowed to sleep once vitals obtained. pt repositions self, incont of urine in the morning, pt ambulated with steady gait to the bathroom and is now up oob in chair having her breakfast.
--- NOTE | 2021-05-19 07:43 | PHA.MEDREC ---
Pharmacy Consult ? Medication Reconciliation Pharmacy has completed the medication reconciliation. Verified medications with [facility] Staff. Staff member unaware about what day Invjemma Paniagua was last given. Last filled 04/20/2021. Will contact again around 0900 when day shift begins. Estephania Bush, PharmD
[2021-05-19 08:00] LABS: Glucose, Whole Blood 101 mg/dL (60-115)
[2021-05-19 08:03] LABS: COVID-19 Test Negative (Negative); IDNOW Serial# 9DD0AD1C
[2021-05-19 08:17] LABS: Alanine Aminotransferase 26 U/L (0-31); Albumin Level 3.6 g/dL (3.5-5.0); Alkaline Phosphatase 93 U/L (39-117); Anion Gap 16 (12-20); Aspartate Amino Transferase 20 U/L (5-31); Bilirubin Direct 0.2 mg/dL (0.0-0.5); Bilirubin Total 0.5 mg/dL (0.0-1.0); Blood Urea Nitrogen 8 mg/dL (9-16); Calcium 9.3 mg/dL (8.4-10.2); Carbon Dioxide 24 mmol/L (22-29); Chloride 104 mmol/L (96-108); Creatinine Clr Calc Pharmacy 149.3; Estimated Glomerular Filt Rate > 60; Glucose Random 122 mg/dL (60-115); Potassium 4.1 mmol/L (3.3-5.1); Sodium 140 mmol/L (135-145); Total Protein 6.4 g/dL (6.5-8.0)
[2021-05-19 08:34] LABS: Valproate < 2.0 mcg/mL (50.0-100.0)
--- NOTE | 2021-05-19 08:53 | PC.NURSE ---
Pt sitting in recliner chair resting quietly. No acute distress noted.
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
--- NOTE | 2021-05-19 09:33 | PC.NURSE ---
Patient is ambulatory to the bathroom and back. Urine speciment obtained.
[2021-05-19 09:42] LABS: MANUAL DIFF FLAG NO
[2021-05-19 09:46] LABS: Basophils Percent Auto 0.3 % (0-2); Eosinophils Absolute Auto 0.2 X10*3/uL (0.0-0.4); Eosinophils Percent Auto 1.4 % (0-4); Hematocrit 43.7 % (37-47); Hemoglobin 14.4 g/dl (12.0-16.0); Imm Gran Abs Auto 0.05 X10*3/uL (0.00-0.03); Imm Gran Pct Auto 0.5 % (0.0-0.4); Lymphocytes Absolute Auto 1.7 X10*3/uL (1.2-4.9); Lymphocytes Percent Auto 15.6 % (20-40); Mean Corpuscular Hemoglobin 31.6 pg (27.0-33.0); Mean Platelet Volume 9.2 fL (9.4-12.3); Monocytes Absolute Auto 0.9 X10*3/uL (0.1-1.2); Monocytes Percent Auto 8.6 % (2-11); Neutrophils Absolute Auto 7.9 X10*3/uL (2.0-8.3); Neutrophils Percent Auto 73.6 % (45-73); Platelet Count 366 X10*3/uL (160-400); Red Blood Count 4.55 X10*6/uL (4.20-5.50); Red Cell Distribution Width 14.7 % (11.0-16.0); White Blood Count 10.8 X10*3/uL (4.8-10.8)
[2021-05-19 10:06] LABS: Amphetamine Screen Urine Not Detected (Not Detect); Barbiturates, Urine Not Detected (Not Detect); Benzodiazepines Screen Urine Not Detected (Not Detect); Cannabinoid Screen Urine Not Detected (Not Detect); Cocaine Screen Urine Not Detected (Not Detect); Opiate Screen Urine Not Detected (Not Detect); Phencyclidine Screen Urine Not Detected (Not Detect)
--- NOTE | 2021-05-19 11:18 | PC.NURSE ---
ONLINE REFERRAL SENT
--- NOTE | 2021-05-19 11:18 | PC.NURSE ---
Patient given a sandwich and gingerale after allowing staff to take vital signs.
--- NOTE | 2021-05-19 12:25 | PC.NURSE ---
Patient to radiology and back via stretcher with security at bedside.
--- NOTE | 2021-05-19 14:00 | PC.NURSE ---
Pt is ambulatory to the bathroom and back unassisted. Pt initially did not want to walk to the bathroom and just wanted to wet herself. Pt has been requesting ice cream. Pt encouraged to walk to the bathroom in order to get the ice cream. Pt immediately walked to bathroom and back unassisted.
[2021-05-19 14:49] LABS: UPreg QC Valid YES; Urine Pregnancy NEGATIVE (NEGATIVE)
--- NOTE | 2021-05-19 15:59 | PC.NURSE ---
Patient is currently resting quietly in bed with eyes closed in no distress
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
--- NOTE | 2021-05-19 17:30 | PC.NURSE ---
Patient lying in bed quietly.
--- NOTE | 2021-05-19 17:59 | PC.NURSE ---
Patient served her meal tray. As geothermal field technician walked away, pt through tray on floor.
--- NOTE | 2021-05-19 18:04 | PC.NURSE ---
Patient was given food tray, then threw it on the floor then called the sitter PCT Jocelyn Trandoug Solisch , Patient is now seemingly calm but asking for chocolate milk with a plate of cookies. KEVIN Bowman aware.
--- NOTE | 2021-05-19 18:11 | PC.NURSE ---
Patient refuses to take medications. Pt states she will only take medications if she is served cookies and a milkshake.
[2021-05-19] MEDS: Divalproex Sodium 500 MG TABLET.DR PO (19:11)
[2021-05-19] MEDS: Nicotine 21 MG PATCH.TD24 TRANSDERMA (20:27)
--- NOTE | 2021-05-20 06:22 | PC.NURSE ---
Patient over all slept well, had one episode of bladder incontinence, showered, snacked, back to sleep, pending psych consult for patient for resuming her Clozaril , patient had one brief episode of agitation triggered by not having anti-fungal powder on the unit, Nystatin powder order is in, pharmacy made aware, patient disposition is section 12 Inpatient Bed Search possibly going to M[facility], will continue to monitor the patient.
[2021-05-20 06:24] VITALS: RESP 18
--- NOTE | 2021-05-20 07:09 | PC.NURSE ---
patient appears to remain at rest at present appears in no distress, breaths are even and unlabored
[2021-05-20] MEDS: Nystatin Powder 15 GM BOTTLE 1 APPL TOPICAL (08:19)
--- NOTE | 2021-05-20 09:14 | PC.NURSE ---
client declined depakote patient said why dont you take them? and depakote is just risperdal with a diffenret name serafin also made coarse comments about the depakote made her titties grow patient periodically sings out of room, some nonsensical statements, some requests for things bring me milk wash my face
[2021-05-20 10:41] VITALS: BP 117/80; PULSE 92; RESP 15; O2SAT 97
--- NOTE | 2021-05-20 10:50 | PC.NURSE ---
periodic loud inappropriate laughter, exposed belly in general direction of walking by staff and strange random statements i found a christina in a lobster tail
--- NOTE | 2021-05-20 13:49 | PC.NURSE ---
[facility] checked in to verify continued bed search
--- NOTE | 2021-05-20 15:55 | PC.NURSE ---
Rn to Rn with Larissa on M3.
--- NOTE | 2021-05-20 16:49 | PC.NURSE ---
This rn arrived at 1500. pt has had some outbursts including throwing sml amounts of trash and yellingh i want to go home Has refused EKG and after calling pharmacy it;s clear that she's refused her depakote since last night. Larissa BROWN is aware of both. Pt will be transfered to shortly with security. Pt signed in voluntary despite voicing her dismay. Pt has been ambulatory, taking po liquids. Redirectable with mult attempts.
--- NOTE | 2021-05-20 17:05 | PC.NURSE ---
This RN tried to chart that patient refused to answer SI questions but form in [email or web address] wasn't conducive. It is charted that patient is not suicidal but infact she refused to asnwer questions.
[2021-05-20] MEDS: OLANZapine 10 MG TABLET PO (18:25)
[2021-05-20] MEDS: LORazepam 1 MG TABLET PO (18:25)
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
[2021-05-20] MEDS: rOPINIRole HCL 0.5 MG TABLET 1.5 MG PO (21:39)
[2021-05-20] MEDS: Benztropine Mesylate 1 MG TABLET 2 MG PO (21:39)
[2021-05-20] MEDS: cloZAPine 100 MG TABLET PO (21:39)
[2021-05-20] MEDS: Topiramate 25 MG TABLET 50 MG PO (21:40)
[2021-05-20] MEDS: Divalproex Sodium 500 MG TABLET.DR 1000 MG PO (21:40)
[2021-05-20] MEDS: Ibuprofen 800 MG TABLET PO (22:08)
[2021-05-21] MEDS: Ibuprofen 800 MG TABLET PO (06:32)
--- NOTE | 2021-05-21 10:11 | PC.NURSE ---
Patient approached to administer medications. Patient started making various demands regarding clothes and soaps. She asked what the date was when informed of the date 05/21/21 she started challenging typewriter operator automatic and accusing of changing the date, telling her the wrong date. I am getting the fuck out of here . Solution Strategist left the room before medication could be administered as patient continued to escalate. Patient tangential with loose associations.
[2021-05-21] MEDS: Nicotine 21 MG PATCH.TD24 TRANSDERMA (13:23)
[2021-05-21 15:32] VITALS: BP 119/80; PULSE 101
[2021-05-21] MEDS: Spironolactone 25 MG TABLET 50 MG PO ×2 (15:32→18:31)
[2021-05-21] MEDS: LORazepam 1 MG TABLET PO (15:32)
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
--- NOTE | 2021-05-21 16:30 | PC.NURSE ---
Late entry for 7-3: Patient continues with mood lability. Periods of increased agitation, verbal outbursts at times. Hostile. Refusing to engage at times. Presents with hard, threatening stare at times. Using wheelchair during day. Approached for medications, patient increasingly argumentative, suggesting specification writer was telling her the wrong day of the year, tangential with loose associations. Challenging most interactions.
[2021-05-21 18:00] VITALS: BP 127/83; PULSE 107; RESP 22; TEMP 37.1; O2SAT 98
--- NOTE | 2021-05-21 18:29 | PM.IMCN ---
History of Present Illness Data of Consult Service Date: 05/21/21 Primary Care Provider: Unknown Physician HPI Reason for consult: skin ulcer 41 year old female with diabetes morbidly obese BMI 54 with history of diabetes, HTN, Hypothyrodism presently admitted to Psych due to issues related to shizophrenia, Psychosis and has been having combative behavior at detention [facility] she [facility]. 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 Additional she has areas of redness in her inner tight areas that she only would show partially due to personal privacy concern..The apearance of these are consistent with fungal rash as result of poor hygien. There is no fever Review of Systems Review of Systems: Gen: no fever Resp: no sob, no cough CV: no chest, no PEREA, no leg edema GI: No n/v, no abd pain Neuro: No confusion Skin ulcers as statatdd [facility] Medical History (Updated 05/21/21 @ 18:45 by Brian Devine MD) Asthma Bipolar disorder Chronic post-traumatic stress disorder (PTSD) Chronic post-traumatic stress disorder (PTSD) Class 3 obesity Diabetes HTN (hypertension) Hypothyroidism PCOS (polycystic ovarian syndrome) Polysubstance abuse Psychosis Schizoaffective disorder Substance abuse Suicidal ideation Social History Household Members: Other Housing: Other Housing Other:: Lives in detention Unable to assess alcohol history related to: Refusing to respond Patient Tobacco Use Status: Current everyday Tobacco user Tobacco use type: Cigarette Smoked in Last 30 Days: Yes Patient Interested in Nicotine Replacement: Yes Patient Given Instructions on How to Stop Smoking: No (Patient aggressive and agitated upon arrival to unit) Use of substances other than those prescribed or required for medical reasons: Refusing to respond Substance Use Type: Heroin and Marijuana Last Used Substance: Unknown Currently Displaying Signs/Symptoms of Drug Intoxication Withdrawal: No Other Past Substance Use Problem:: Tox screen negative Any prior treatment program specific to substance use: No Spiritual Healthcare Practices: Unable to assess at this time Yazidism Healthcare Practices: Unable to assess Cultural Healthcare Practices: Unable to assess Advance Directives: No Advance Directives on File: No Healthcare Proxy: No Guardian: No Do you have thoughts of harming others: None Do you have a plan to hurt others: No Plan service: No Sexual orientation: Don't Know Meds Allergies Allergy/AdvReac Type Severity Reaction Status Date / Time banana [Banana] Allergy Severe ANAPHYLAXIS Verified 04/11/21 04:26 bee pollen [BEE STINGS] Allergy Unknown SWELLING Verified 04/11/21 04:26 cephalexin [Keflex] Allergy Unknown Unknown Verified 04/11/21 04:26 trazodone [TRAZODONE] Allergy Unknown BODY Verified 04/11/21 04:26 SITFFENS peanut [PEANUT] AdvReac Unknown TACHYCARDIA Verified 04/11/21 04:26 pistachio nut AdvReac Unknown TACHYCARDIA Verified 04/11/21 04:26 From KEFLEX Allergy Unknown UNKNOWN Uncoded 04/11/21 04:26 Active Medications: Current Medications Generic Name Dose Route Start Last Admin Trade Name Freq PRN Reason Stop Dose Admin Acetaminophen 975 mg 05/20/21 17:21 Acetaminophen 325 Mg Tablet PO TID PRN Pain, Mild Al Hydroxide/Mg Hydroxide 30 ml 05/20/21 17:21 Magnesium Hydrox/Alum Hydrox 30 Ml Oral.Susp PO Q6H PRN Heartburn/Nausea Albuterol Sulfate 2 puff 05/20/21 17:21 Albuterol Sulfate 90 Mcg 8 Gm Inhaler INHALE Q4H PRN Wheezing Benztropine Mesylate 2 mg 05/20/21 21:00 05/21/21 12:21 Benztropine Mesylate 1 Mg Tablet PO Not Given BID DREAD Carbamazepine 200 mg 05/21/21 21:00 Carbamazepine Er 200 Mg Tab.Er.12h PO BID DREAD Clozapine 100 mg 05/20/21 21:00 05/20/21 21:39 Clozapine 100 Mg Tablet PO 100 mg BEDTIME DREAD Administration Divalproex Sodium 500 mg 05/21/21 21:00 Divalproex Sodium 500 Mg Tablet.Dr PO 05/22/21 20:59 BEDTIME DREAD Divalproex Sodium 250 mg 05/22/21 21:00 Divalproex Sodium Er 250 Mg Tab.Er.24h PO 05/22/21 21:01 ONCE ONE Duloxetine HCl 60 mg 05/21/21 09:00 05/21/21 12:20 Duloxetine Hcl 60 Mg Capsule. PO Not Given DAILY [facility] Ferrous Sulfate 324 mg 05/21/21 09:00 05/21/21 12:22 Ferrous Sulfate 324 Mg Tablet. PO Not Given DAILY [facility] Fluticasone Propionate 1 spray 05/21/21 09:00 05/21/21 12:21 Fluticasone Propionate Nasal 16 Gm [place] NOSTRIL-B Not Given DAILY [facility] Furosemide 40 mg 05/21/21 09:00 05/21/21 12:22 Furosemide 40 Mg Tablet PO Not Given DAILY [facility] Protocol Hydroxyzine HCl 25 mg 05/20/21 17:21 Hydroxyzine Hcl 25 Mg Tablet PO BEDTIME PRN Anxiety Ibuprofen 800 mg 05/20/21 21:59 05/21/21 06:32 Ibuprofen 800 Mg Tablet PO 800 mg Q8H PRN Administration Pain, Mild (Pain Scale 1-3) Lactulose 10 gm 05/21/21 09:00 05/21/21 12:22 Lactulose 20 Gm/30 Ml Solution PO Not Given DAILY [facility] Levothyroxine Sodium 100 mcg 05/21/21 09:00 05/21/21 12:22 Levothyroxine Sodium 100 Mcg Tablet PO Not Given DAILY [facility] Lidocaine 1 patch 05/21/21 09:00 05/21/21 12:23 Lidocaine 4 % Patch Adh..Patch TRANSDERMA Not Given DAILY [facility] Loratadine 10 mg 05/21/21 09:00 05/21/21 12:23 Loratadine 10 Mg Tablet PO Not Given DAILY [facility] Lorazepam 1 mg 05/20/21 18:07 05/20/21 18:25 Lorazepam 1 Mg Tablet PO 1 mg Q4H PRN Administration anxiety/restlessness Magnesium Hydroxide 30 ml 05/20/21 17:21 Milk Of Magnesia 30 Ml Oral.Susp PO DAILY PRN Constipation Multivitamins/Vitamin C 1 tab 05/21/21 09:00 05/21/21 12:23 Multivitamin Tablet PO Not Given DAILY [facility] Nicotine 21 mg 05/22/21 09:00 Nicotine 21 Mg Patch.Td24 TRANSDERMA DAILY [facility] Nicotine Polacrilex 4 mg 05/20/21 21:31 05/21/21 06:33 Nicotine Polacrilex 4 Mg Lozenge BUCCAL 4 mg Q2H PRN Administration Nicotine Cravings Olanzapine 10 mg 05/20/21 17:21 05/20/21 18:25 Olanzapine 10 Mg Tablet PO 10 mg BID PRN Administration Agitation Ondansetron HCl 4 mg 05/21/21 15:23 Ondansetron Odt 4 Mg Tab.Rapdis TRANSLINGU Q6H PRN Nausea Ropinirole HCl 1.5 mg 05/20/21 21:00 05/20/21 21:39 Ropinirole Hcl 0.5 Mg Tablet PO 1.5 mg BEDTIME DREAD Administration Spironolactone 50 mg 05/21/21 08:00 05/21/21 12:20 Spironolactone 25 Mg Tablet PO Not Given BIDWM [facility] Protocol Topiramate 50 mg 05/20/21 21:00 05/21/21 12:23 Topiramate 25 Mg Tablet PO Not Given BID [facility] Home Medications Medication Instructions Recorded Confirmed Last Taken Type acetaminophen 975 mg PO TID PRN 04/11/21 05/19/21 Unknown History benztropine 2 mg PO BID 04/11/21 05/19/21 05/18/21 History divalproex 2 tab PO BEDTIME 04/11/21 05/19/21 05/18/21 History duloxetine 60 mg PO DAILY 04/11/21 05/19/21 05/18/21 History ferrous sulfate 325 mg PO DAILY 04/11/21 05/19/21 05/18/21 History fluticasone propionate 1 spray INTRANASAL DAILY 04/11/21 05/19/21 05/18/21 History furosemide 40 mg PO DAILY 04/11/21 05/19/21 05/18/21 History lactulose 15 ml PO DAILY 04/11/21 05/19/21 05/18/21 History levothyroxine 100 tab PO DAILY 04/11/21 05/19/21 05/18/21 History lidocaine [Lidoderm] 1 patch TOPICAL DAILY 04/11/21 05/19/21 Unknown History loratadine 10 mg PO DAILY 04/11/21 05/19/21 05/18/21 History multivitamin with folic acid 1 tab PO DAILY 04/11/21 05/19/21 05/18/21 History [Tab-A-Patel] paliperidone palmitate [Invega 234 mg IM Q28D 04/11/21 05/19/21 04/08/21 History Sustenna] ropinirole 1.5 mg PO BEDTIME 04/11/21 05/19/21 05/18/21 History spironolactone 50 mg PO BID 04/11/21 05/19/21 05/18/21 History topiramate 50 mg PO BID 04/11/21 05/19/21 05/18/21 History clozapine 100 mg PO BEDTIME 04/28/21 05/19/21 05/18/21 History olanzapine 10 mg PO BID PRN 04/28/21 05/19/21 Unknown History albuterol sulfate 2 puff INHALATION Q4H PRN 05/19/21 05/19/21 05/18/21 History Physical Exam Vital Signs and Narrative: Vital Signs: Last Vital Signs Temp 0 F L 05/19/21 01:13 Pulse 101 H 05/21/21 15:32 Resp 15 05/20/21 10:41 BP 119/80 05/21/21 15:32 Pulse Ox 97 05/20/21 10:41 Body Mass Index 54.8 Const: Other: Constitutional Awake and Alert, No apparent distress, she is morbidly obess Neck Supple, No lymphadenopathy Cardiovascular RRR, No M/R/G, S1 S2, No S3 S4, No pedal edema Respiratory Lungs clear, No respiratory distress Gastrointestinal Non tender, Non-distended Skin old ulcers on left tigh, the one on abdomen looks nearly all healed the picture shows the one on left tigh Areas if redness of inner tight appearnce consistent with skin fungus Neurological Alert & oriented x3 Psychological Appropriate affect Results Labs CBC and Chem 7: 05/19/21 09:36 05/19/21 07:42 Assessment and Plan (1) Skin ulcer: Status: Acute (2) HTN (hypertension): Status: Acute (3) Class 3 obesity: Status: Acute 1/ Skin ulcers--these are old and are healing and do not appear acutely infected, these may be result posible flee bites, ingroin hair or other. At this time, I don't think Abx are warranted given their healing appearance, no fever and no increase in WBC. Additional there does not appear to be abesses that need I and D. The areas need to be kept clean with good basic hygien 2/ Fungal rash--recommend keeping inner tight, perineal area dry, good hygien again, and use of Nystatin powder 3/ Hypothyroidism--continue Levothyroxine 4/Diabetes--blood sugars range from 110 to 122, and not on meds, sugars can be checked daily, i recommend checking A1C 5/HTN-continue Aldactone, Lasix, BP is fine 6/Morbid obesity--weight loss encouraged to avoid complication of med issues. overall exam was limitted as patient would not sit up difficulty turning would only show where she thought her skin issues were. Chapperone was in there with me the whole time
[2021-05-21 18:31] VITALS: BP 113/56; PULSE 101
[2021-05-21] MEDS: Topiramate 25 MG TABLET 50 MG PO (20:07)
[2021-05-21] MEDS: Divalproex Sodium 500 MG TABLET.DR PO (20:07)
[2021-05-21] MEDS: carBAMazepine ER 200 MG TAB.ER.12H PO (20:07)
[2021-05-21] MEDS: Benztropine Mesylate 1 MG TABLET 2 MG PO (20:07)
[2021-05-21] MEDS: rOPINIRole HCL 0.5 MG TABLET 1.5 MG PO (20:08)
[2021-05-21] MEDS: cloZAPine 100 MG TABLET PO (20:08)
[2021-05-21] MEDS: Acetaminophen 325 MG TABLET 975 MG PO (20:15)
--- NOTE | 2021-05-21 20:32 | ECG_ITS ---
Test Reason : chest pain Blood Pressure : / mmHG Vent. Rate : 112 BPM Atrial Rate : 112 BPM P-R Int : 128 ms QRS Dur : 082 ms QT Int : 334 ms P-R-T Axes : 065 007 063 degrees QTc Int : 455 ms Sinus tachycardia Otherwise normal ECG No previous ECGs available Referred By: Francisco Estrada Electronically Signed By:ROWENA CHO
[2021-05-22 06:00] VITALS: BP 123/72; PULSE 108; RESP 20; TEMP 37.4; O2SAT 93
[2021-05-22 07:57] LABS: Estimated Average Glucose 103 mg/dL; Hemoglobin A1c % 5.2 %
[2021-05-22] MEDS: Furosemide 40 MG TABLET PO (08:14)
[2021-05-22] MEDS: Benztropine Mesylate 1 MG TABLET 2 MG PO ×2 (08:14→21:07)
[2021-05-22] MEDS: Lidocaine 4 % Patch ADH..PATCH 1 PATCH TRANSDERMA (08:14)
[2021-05-22] MEDS: Nicotine 21 MG PATCH.TD24 TRANSDERMA (08:14)
[2021-05-22] MEDS: Loratadine 10 MG TABLET PO (08:14)
[2021-05-22] MEDS: Lactulose 20 GM/30 ML SOLUTION 10 GM PO (08:14)
[2021-05-22] MEDS: carBAMazepine ER 200 MG TAB.ER.12H PO ×2 (08:15→21:07)
[2021-05-22] MEDS: Ferrous Sulfate 324 MG TABLET.DR PO (08:15)
[2021-05-22] MEDS: DULoxetine HCl 60 MG CAPSULE.DR PO (08:15)
[2021-05-22] MEDS: Levothyroxine Sodium 100 MCG TABLET PO (08:15)
[2021-05-22] MEDS: Multivitamin TABLET 1 TAB PO (08:15)
[2021-05-22] MEDS: Spironolactone 25 MG TABLET 50 MG PO ×2 (08:15→16:24)
[2021-05-22] MEDS: Topiramate 25 MG TABLET 50 MG PO ×2 (08:15→21:07)
[2021-05-22] MEDS: Acetaminophen 325 MG TABLET 975 MG PO ×2 (10:28→21:19)
[2021-05-22] MEDS: LORazepam 1 MG TABLET PO (11:08)
--- NOTE | 2021-05-22 11:15 | HO.PSYCHPN ---
Subjective Subjective Date of Service: 05/22/21 Reason For Visit: Psychosis Subjective Notes: 3 Day Medical Problems Affecting Mental Status: No Interim History: pt found seated in common area, quiet, appearing sleepy or mildly sedated. 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 she also notes the beds and chairs here are uncomfortable, not like what she has at the senior living. pt also reports interest in using cannabis to manage her sleep and pain and requests help in obtaining medical marijuana card. remains agreeable to come off of the depakote and continue with trial of tegretol. expresses some concern someone else will come on shift this weekend and change her medications unless she behaves. reinforces there will not be any need to change her medications if she is in behavioral control. Medication Compliance: Yes Side effects from medications: No Attending Groups: No Mental Status Exam Mental Status Exam Narrative: Pt is alert and oriented; behavior is cooperative, seated in milieu, not in distress; dressed in casual attire, disheveled, obese, hirsutism; affect blunted, hypo-intense; Speech low volume, speech latency WNL; general PMR; thought process is goal directed, concrete. Thought content: no delusions, paranoia expressed; no SI/HI/AVH expressed. Diagnostics Vital Signs (24Hr): Vital Signs - 24 hr 05/21/21 15:32 05/21/21 18:00 05/21/21 18:31 Temperature 98.8 F Pulse Rate 101 H 107 H 101 H Respiratory Rate 22 H Blood Pressure 119/80 127/83 113/56 L Pulse Oximetry 98 05/22/21 06:00 Temperature 99.4 F Pulse Rate 108 H Respiratory Rate 20 Blood Pressure 123/72 Pulse Oximetry 93 Body Mass Index 54.8 Labs Results: 05/19/21 09:36 05/19/21 07:42 Labs: Laboratory Results - last 48 hr 05/22/21 07:30 Estimat Average Glucose 103 Hemoglobin A1c % 5.2 Imaging Radiology Impressions: ITS Impressions KUB X-Ray 05/19/21 11:52 IMPRESSION: 1. Unremarkable bowel gas. 2. No visible radiopaque foreign body overlying lower pelvis or rectum. 3. Examination limited by patient body habitus. If clinically indicated, further assessment may be obtained with direct visualization or targeted CT. Medications Medications Current Medications Generic Name Dose Route Start Last Admin Trade Name Freq PRN Reason Stop Dose Admin Acetaminophen 975 mg 05/20/21 17:21 05/22/21 10:28 Acetaminophen 325 Mg Tablet PO 975 mg TID PRN Administration Pain, Mild Al Hydroxide/Mg Hydroxide 30 ml 05/20/21 17:21 Magnesium Hydrox/Alum Hydrox 30 Ml Oral.Susp PO Q6H PRN Heartburn/Nausea Albuterol Sulfate 2 puff 05/20/21 17:21 Albuterol Sulfate 90 Mcg 8 Gm Inhaler INHALE Q4H PRN Wheezing Benztropine Mesylate 2 mg 05/20/21 21:00 05/22/21 08:14 Benztropine Mesylate 1 Mg Tablet PO 2 mg BID DREAD Administration Carbamazepine 200 mg 05/21/21 21:00 05/22/21 08:15 Carbamazepine Er 200 Mg Tab.Er.12h PO 200 mg BID DREAD Administration Clozapine 100 mg 05/20/21 21:00 05/21/21 20:08 Clozapine 100 Mg Tablet PO 100 mg BEDTIME DREAD Administration Divalproex Sodium 500 mg 05/21/21 21:00 05/21/21 20:07 Divalproex Sodium 500 Mg Tablet. PO 05/22/21 20:59 500 mg BEDTIME DREAD Administration Divalproex Sodium 250 mg 05/22/21 21:00 Divalproex Sodium Er 250 Mg Tab.Er.24h PO 05/22/21 21:01 ONCE ONE Duloxetine HCl 60 mg 05/21/21 09:00 05/22/21 08:15 Duloxetine Hcl 60 Mg Capsule. PO 60 mg DAILY DREAD Administration Ferrous Sulfate 324 mg 05/21/21 09:00 05/22/21 08:15 Ferrous Sulfate 324 Mg Tablet. PO 324 mg DAILY DREAD Administration Fluticasone Propionate 1 spray 05/21/21 09:00 05/21/21 12:21 Fluticasone Propionate Nasal 16 Gm [place] NOSTRIL-B Not Given DAILY DREAD Furosemide 40 mg 05/21/21 09:00 05/22/21 08:14 Furosemide 40 Mg Tablet PO 40 mg DAILY DREAD Administration Protocol Hydroxyzine HCl 25 mg 05/20/21 17:21 Hydroxyzine Hcl 25 Mg Tablet PO BEDTIME PRN Anxiety Ibuprofen 800 mg 05/20/21 21:59 05/21/21 06:32 Ibuprofen 800 Mg Tablet PO 800 mg Q8H PRN Administration Pain, Mild (Pain Scale 1-3) Lactulose 10 gm 05/21/21 09:00 05/22/21 08:14 Lactulose 20 Gm/30 Ml Solution PO 10 gm DAILY DREAD Administration Levothyroxine Sodium 100 mcg 05/21/21 09:00 05/22/21 08:15 Levothyroxine Sodium 100 Mcg Tablet PO 100 mcg DAILY DREAD Administration Lidocaine 1 patch 05/21/21 09:00 05/22/21 08:14 Lidocaine 4 % Patch Adh..Patch TRANSDERMA 1 patch DAILY DREAD Administration Loratadine 10 mg 05/21/21 09:00 05/22/21 08:14 Loratadine 10 Mg Tablet PO 10 mg DAILY DREAD Administration Lorazepam 1 mg 05/20/21 18:07 05/22/21 11:08 Lorazepam 1 Mg Tablet PO 1 mg Q4H PRN Administration anxiety/restlessness Magnesium Hydroxide 30 ml 05/20/21 17:21 Milk Of Magnesia 30 Ml Oral.Susp PO DAILY PRN Constipation Multivitamins/Vitamin C 1 tab 05/21/21 09:00 05/22/21 08:15 Multivitamin Tablet PO 1 tab DAILY DREAD Administration Nicotine 21 mg 05/22/21 09:00 05/22/21 08:14 Nicotine 21 Mg Patch.Td24 TRANSDERMA 21 mg DAILY DREAD Administration Nicotine Polacrilex 4 mg 05/20/21 21:31 05/22/21 11:09 Nicotine Polacrilex 4 Mg Lozenge BUCCAL 4 mg Q2H PRN Administration Nicotine Cravings Nystatin 1 appl 05/21/21 21:00 05/21/21 21:31 Nystatin Powder 15 Gm Bottle TOPICAL Not Given BID [facility] Protocol Olanzapine 10 mg 05/20/21 17:21 05/20/21 18:25 Olanzapine 10 Mg Tablet PO 10 mg BID PRN Administration Agitation Ondansetron HCl 4 mg 05/21/21 15:23 05/22/21 11:08 Ondansetron Odt 4 Mg Tab.Rapdis TRANSLINGU 4 mg Q6H PRN Administration Nausea Ropinirole HCl 1.5 mg 05/20/21 21:00 05/21/21 20:08 Ropinirole Hcl 0.5 Mg Tablet PO 1.5 mg BEDTIME DREAD Administration Spironolactone 50 mg 05/21/21 08:00 05/22/21 08:15 Spironolactone 25 Mg Tablet PO 50 mg BIDWM DREAD Administration Protocol Topiramate 50 mg 05/20/21 21:00 05/22/21 08:15 Topiramate 25 Mg Tablet PO 50 mg BID DREAD Administration Allergies Allergies Allergy/AdvReac Type Severity Reaction Status Date / Time banana [Banana] Allergy Severe ANAPHYLAXIS Verified 04/11/21 04:26 bee pollen [BEE STINGS] Allergy Unknown SWELLING Verified 04/11/21 04:26 cephalexin [Keflex] Allergy Unknown Unknown Verified 04/11/21 04:26 trazodone [TRAZODONE] Allergy Unknown BODY Verified 04/11/21 04:26 SITFFENS peanut [PEANUT] AdvReac Unknown TACHYCARDIA Verified 04/11/21 04:26 pistachio nut AdvReac Unknown TACHYCARDIA Verified 04/11/21 04:26 From KEFLEX Allergy Unknown UNKNOWN Uncoded 04/11/21 04:26 Assessment & Plan Assessment & Plan (1) Schizoaffective disorder: Status: Acute Code(s): F25.9 - Schizoaffective disorder, unspecified Assessment and Plan: continue home meds for now except for depakote, which pt states she does not wish to take 2/2 weight gain and which despite its being prescribed outpatient she is evidently already NOT taking because her VPA level at admission was undetectable. willing to try tegretol, states she has been on it in the past and does not know why it was every DCed. rapid taper of depakote and initiation of tegretol ordered. invega sustenna 234 mg next due 05/28. patient is also on 3 neuroleptics, 2 of the 3 being at submaximal doses. she is on two AEDs as well. will attempt to contact outpt prescriber and gain history and collateral. if possible, would prefer to reduce polypharmacy. tegretol 200 BID started 05/21, pt tolerating well as of 05/22. (2) Skin ulcer: Status: Acute Code(s): L98.499 - Non-pressure chronic ulcer of skin of other sites with unspecified severity Assessment and Plan: hospitalist consult recommended no intervention for old and well-healing ulcers. areas of probably fungal infection on inner thighs noted, nystatin powder recommended (currently prescribed). Greater than 50% of the session was spent on counseling and/or coordination of care Reason for contiued inpatient stay Substantial Risk for: harm to self, harm to others, inability to function and rapid decompensation
[2021-05-22] MEDS: Nystatin Powder 15 GM BOTTLE 1 APPL TOPICAL ×2 (11:53→21:40)
[2021-05-22] MEDS: Fluticasone Propionate Nasal 16 GM SPRAY 1 SPRAY NOSTRIL-B (11:53)
[2021-05-22] MEDS: traMADoL HCL 50 MG TABLET PO ×2 (12:32→18:56)
[2021-05-22 16:24] VITALS: BP 124/80; PULSE 109
[2021-05-22 18:00] VITALS: BP 132/88; PULSE 98; RESP 18; TEMP 36.6; O2SAT 96
[2021-05-22] MEDS: cloZAPine 100 MG TABLET PO (21:07)
[2021-05-22] MEDS: Divalproex Sodium ER 250 MG TAB.ER.24H PO (21:07)
[2021-05-22] MEDS: rOPINIRole HCL 0.5 MG TABLET 1.5 MG PO (21:07)
[2021-05-23 06:00] VITALS: BP 128/78; PULSE 101; RESP 18; TEMP 36.6; O2SAT 96
--- NOTE | 2021-05-23 08:45 | HO.PSYCHPN ---
Subjective Subjective Date of Service: 05/23/21 Reason For Visit: Psychosis Interim History: Pt known to [facility] from earlier admissions. Sarcastic paranoid edge. Perfunctory responses. Responded to Qs with Its private . Ct plan Review of Systems Review of Systems Gen: no fever Resp: no sob, no cough CV: no chest, no PEREA, no leg edema GI: No n/v, no abd pain Neuro: No confusion Skin ulcers as statatdd Mental Status Exam Mental Status Exam Narrative: Pt is alert and oriented; behavior is cooperative, seated in milieu, not in distress; dressed in casual attire, disheveled, obese, hirsutism; affect blunted, hypo-intense; Speech low volume, speech latency WNL; general PMR; thought process is goal directed, concrete. Thought content: no delusions, paranoia expressed; no SI/HI/AVH expressed. Diagnostics Vital Signs (24Hr): Vital Signs - 24 hr 05/22/21 16:24 05/22/21 18:00 Temperature 97.9 F Pulse Rate 109 H 98 Respiratory Rate 18 Blood Pressure 124/80 132/88 Pulse Oximetry 96 Body Mass Index 54.8 Labs Results: 05/19/21 09:36 05/19/21 07:42 Labs: Laboratory Results - last 48 hr 05/22/21 07:30 Estimat Average Glucose 103 Hemoglobin A1c % 5.2 Imaging Radiology Impressions: ITS Impressions KUB X-Ray 05/19/21 11:52 IMPRESSION: 1. Unremarkable bowel gas. 2. No visible radiopaque foreign body overlying lower pelvis or rectum. 3. Examination limited by patient body habitus. If clinically indicated, further assessment may be obtained with direct visualization or targeted CT. Medications Medications Current Medications Generic Name Dose Route Start Last Admin Trade Name Freq PRN Reason Stop Dose Admin Acetaminophen 975 mg 05/20/21 17:21 05/22/21 21:19 Acetaminophen 325 Mg Tablet PO 975 mg TID PRN Administration Pain, Mild Al Hydroxide/Mg Hydroxide 30 ml 05/20/21 17:21 Magnesium Hydrox/Alum Hydrox 30 Ml Oral.Susp PO Q6H PRN Heartburn/Nausea Albuterol Sulfate 2 puff 05/20/21 17:21 Albuterol Sulfate 90 Mcg 8 Gm Inhaler INHALE Q4H PRN Wheezing Benztropine Mesylate 2 mg 05/20/21 21:00 05/22/21 21:07 Benztropine Mesylate 1 Mg Tablet PO 2 mg BID DREAD Administration Carbamazepine 200 mg 05/21/21 21:00 05/22/21 21:07 Carbamazepine Er 200 Mg Tab.Er.12h PO 200 mg BID DREAD Administration Clozapine 100 mg 05/20/21 21:00 05/22/21 21:07 Clozapine 100 Mg Tablet PO 100 mg BEDTIME DREAD Administration Duloxetine HCl 60 mg 05/21/21 09:00 05/22/21 08:15 Duloxetine Hcl 60 Mg Capsule. PO 60 mg DAILY DREAD Administration Ferrous Sulfate 324 mg 05/21/21 09:00 05/22/21 08:15 Ferrous Sulfate 324 Mg Tablet. PO 324 mg DAILY DREAD Administration Fluticasone Propionate 1 spray 05/21/21 09:00 05/22/21 11:53 Fluticasone Propionate Nasal 16 Gm [place] NOSTRIL-B 1 spray DAILY DREAD Administration Furosemide 40 mg 05/21/21 09:00 05/22/21 08:14 Furosemide 40 Mg Tablet PO 40 mg DAILY DREAD Administration Protocol Hydroxyzine HCl 25 mg 05/20/21 17:21 Hydroxyzine Hcl 25 Mg Tablet PO BEDTIME PRN Anxiety Ibuprofen 800 mg 05/20/21 21:59 05/21/21 06:32 Ibuprofen 800 Mg Tablet PO 800 mg Q8H PRN Administration Pain, Mild (Pain Scale 1-3) Lactulose 10 gm 05/21/21 09:00 05/22/21 08:14 Lactulose 20 Gm/30 Ml Solution PO 10 gm DAILY DREAD Administration Levothyroxine Sodium 100 mcg 05/21/21 09:00 05/22/21 08:15 Levothyroxine Sodium 100 Mcg Tablet PO 100 mcg DAILY DREAD Administration Lidocaine 1 patch 05/21/21 09:00 05/22/21 08:14 Lidocaine 4 % Patch Adh..Patch TRANSDERMA 1 patch DAILY DREAD Administration Loratadine 10 mg 05/21/21 09:00 05/22/21 08:14 Loratadine 10 Mg Tablet PO 10 mg DAILY DREAD Administration Lorazepam 1 mg 05/20/21 18:07 05/22/21 11:08 Lorazepam 1 Mg Tablet PO 1 mg Q4H PRN Administration anxiety/restlessness Magnesium Hydroxide 30 ml 05/20/21 17:21 Milk Of Magnesia 30 Ml Oral.Susp PO DAILY PRN Constipation Multivitamins/Vitamin C 1 tab 05/21/21 09:00 05/22/21 08:15 Multivitamin Tablet PO 1 tab DAILY DREAD Administration Nicotine 21 mg 05/22/21 09:00 05/22/21 08:14 Nicotine 21 Mg Patch.Td24 TRANSDERMA 21 mg DAILY DREAD Administration Nicotine Polacrilex 4 mg 05/20/21 21:31 05/22/21 16:23 Nicotine Polacrilex 4 Mg Lozenge BUCCAL 4 mg Q2H PRN Administration Nicotine Cravings Nystatin 1 appl 05/21/21 21:00 05/22/21 21:40 Nystatin Powder 15 Gm Bottle TOPICAL 1 appl BID DREAD Administration Protocol Olanzapine 10 mg 05/20/21 17:21 05/20/21 18:25 Olanzapine 10 Mg Tablet PO 10 mg BID PRN Administration Agitation Ondansetron HCl 4 mg 05/21/21 15:23 05/22/21 11:08 Ondansetron Odt 4 Mg Tab.Rapdis TRANSLINGU 4 mg Q6H PRN Administration Nausea Ropinirole HCl 1.5 mg 05/20/21 21:00 05/22/21 21:07 Ropinirole Hcl 0.5 Mg Tablet PO 1.5 mg BEDTIME DREAD Administration Spironolactone 50 mg 05/21/21 08:00 05/22/21 16:24 Spironolactone 25 Mg Tablet PO 50 mg BIDWM DREAD Administration Protocol Topiramate 50 mg 05/20/21 21:00 05/22/21 21:07 Topiramate 25 Mg Tablet PO 50 mg BID DREAD Administration Tramadol HCl 50 mg 05/22/21 11:41 05/22/21 18:56 Tramadol Hcl 50 Mg Tablet PO 50 mg Q6H PRN Administration hip pain Allergies Allergies Allergy/AdvReac Type Severity Reaction Status Date / Time banana [Banana] Allergy Severe ANAPHYLAXIS Verified 04/11/21 04:26 bee pollen [BEE STINGS] Allergy Unknown SWELLING Verified 04/11/21 04:26 cephalexin [Keflex] Allergy Unknown Unknown Verified 04/11/21 04:26 trazodone [TRAZODONE] Allergy Unknown BODY Verified 04/11/21 04:26 SITFFENS peanut [PEANUT] AdvReac Unknown TACHYCARDIA Verified 04/11/21 04:26 pistachio nut AdvReac Unknown TACHYCARDIA Verified 04/11/21 04:26 From KEFLEX Allergy Unknown UNKNOWN Uncoded 04/11/21 04:26 Assessment & Plan Assessment & Plan (1) Schizoaffective disorder: Status: Acute Code(s): F25.9 - Schizoaffective disorder, unspecified Assessment and Plan: Ct w reducing [facility] per (2) Skin ulcer: Status: Acute Code(s): L98.499 - Non-pressure chronic ulcer of skin of other sites with unspecified severity Assessment and Plan: hospitalist consult recommended no intervention for old and well-healing ulcers. areas of probably fungal infection on inner thighs noted, nystatin powder recommended (currently prescribed). Greater than 50% of the session was spent on counseling and/or coordination of care Reason for contiued inpatient stay Substantial Risk for: rapid decompensation
[2021-05-23 08:53] VITALS: BP 160/81; PULSE 88
[2021-05-23] MEDS: Loratadine 10 MG TABLET PO (08:53)
[2021-05-23] MEDS: Spironolactone 25 MG TABLET 50 MG PO ×2 (08:53→18:08)
[2021-05-23] MEDS: Nicotine 21 MG PATCH.TD24 TRANSDERMA (08:53)
[2021-05-23] MEDS: Ferrous Sulfate 324 MG TABLET.DR PO (08:54)
[2021-05-23] MEDS: carBAMazepine ER 200 MG TAB.ER.12H PO ×2 (08:54→20:58)
[2021-05-23] MEDS: Topiramate 25 MG TABLET 50 MG PO ×2 (08:54→20:58)
[2021-05-23] MEDS: DULoxetine HCl 60 MG CAPSULE.DR PO (08:54)
[2021-05-23] MEDS: Furosemide 40 MG TABLET PO (08:54)
[2021-05-23] MEDS: Multivitamin TABLET 1 TAB PO (08:54)
[2021-05-23] MEDS: Levothyroxine Sodium 100 MCG TABLET PO (08:54)
[2021-05-23] MEDS: LORazepam 1 MG TABLET PO ×2 (08:55→13:42)
[2021-05-23] MEDS: Fluticasone Propionate Nasal 16 GM SPRAY 1 SPRAY NOSTRIL-B (08:59)
[2021-05-23] MEDS: Lactulose 20 GM/30 ML SOLUTION 10 GM PO (10:36)
[2021-05-23] MEDS: Lidocaine 4 % Patch ADH..PATCH 1 PATCH TRANSDERMA (10:36)
[2021-05-23] MEDS: Benztropine Mesylate 1 MG TABLET 2 MG PO ×2 (10:36→20:58)
[2021-05-23] MEDS: Acetaminophen 325 MG TABLET 975 MG PO ×2 (13:42→20:58)
[2021-05-23 18:00] VITALS: BP 117/65; PULSE 96; RESP 18; TEMP 36.9; O2SAT 97
[2021-05-23] MEDS: traMADoL HCL 50 MG TABLET PO (18:07)
[2021-05-23 18:08] VITALS: BP 117/65; PULSE 96
[2021-05-23] MEDS: rOPINIRole HCL 0.5 MG TABLET 1.5 MG PO (20:58)
[2021-05-23] MEDS: cloZAPine 100 MG TABLET PO (20:58)
[2021-05-23] MEDS: Nystatin Powder 15 GM BOTTLE 1 APPL TOPICAL (22:01)
[2021-05-24] MEDS: traMADoL HCL 50 MG TABLET PO ×3 (05:35→21:52)
[2021-05-24 06:00] VITALS: BP 140/61; PULSE 110; RESP 18; TEMP 36.8; O2SAT 96
--- NOTE | 2021-05-24 07:29 | HO.PSYCHPN ---
Subjective Subjective Date of Service: 05/24/21 Reason For Visit: Psychosis Interim History: 05/23:Pt known to [facility] from earlier admissions. Sarcastic paranoid edge. Perfunctory responses. Responded to Qs with Its private . Ct plan 05/24: More engaging today. Says [facility] are making her sedated. Looking to [place] to Review of Systems Review of Systems Gen: no fever Resp: no sob, no cough CV: no chest, no PEREA, no leg edema GI: No n/v, no abd pain Neuro: No confusion Skin ulcers as statatdd Mental Status Exam Mental Status Exam Narrative: Pt is alert and oriented; behavior is cooperative, seated in milieu, not in distress; dressed in casual attire, disheveled, obese, hirsutism; affect blunted, hypo-intense; Speech low volume, speech latency WNL; general PMR; thought process is goal directed, concrete. Thought content: no delusions, paranoia expressed; no SI/HI/AVH expressed. Diagnostics Vital Signs (24Hr): Vital Signs - 24 hr 05/23/21 08:53 05/23/21 18:00 05/23/21 18:08 Temperature 98.4 F Pulse Rate 88 96 96 Respiratory Rate 18 Blood Pressure 160/81 H 117/65 117/65 Pulse Oximetry 97 Body Mass Index 54.8 Labs Results: 05/19/21 09:36 05/19/21 07:42 Labs: Laboratory Results - last 48 hr 05/22/21 07:30 Estimat Average Glucose 103 Hemoglobin A1c % 5.2 Imaging Radiology Impressions: ITS Impressions KUB X-Ray 05/19/21 11:52 IMPRESSION: 1. Unremarkable bowel gas. 2. No visible radiopaque foreign body overlying lower pelvis or rectum. 3. Examination limited by patient body habitus. If clinically indicated, further assessment may be obtained with direct visualization or targeted CT. Medications Medications Current Medications Generic Name Dose Route Start Last Admin Trade Name Freq PRN Reason Stop Dose Admin Acetaminophen 975 mg 05/20/21 17:21 05/23/21 20:58 Acetaminophen 325 Mg Tablet PO 975 mg TID PRN Administration Pain, Mild Al Hydroxide/Mg Hydroxide 30 ml 05/20/21 17:21 Magnesium Hydrox/Alum Hydrox 30 Ml Oral.Susp PO Q6H PRN Heartburn/Nausea Albuterol Sulfate 2 puff 05/20/21 17:21 Albuterol Sulfate 90 Mcg 8 Gm Inhaler INHALE Q4H PRN Wheezing Benztropine Mesylate 2 mg 05/20/21 21:00 05/23/21 20:58 Benztropine Mesylate 1 Mg Tablet PO 2 mg BID DREAD Administration Carbamazepine 200 mg 05/21/21 21:00 05/23/21 20:58 Carbamazepine Er 200 Mg Tab.Er.12h PO 200 mg BID DREAD Administration Clozapine 100 mg 05/20/21 21:00 05/23/21 20:58 Clozapine 100 Mg Tablet PO 100 mg BEDTIME DREAD Administration Duloxetine HCl 60 mg 05/21/21 09:00 05/23/21 08:54 Duloxetine Hcl 60 Mg Capsule. PO 60 mg DAILY DREAD Administration Ferrous Sulfate 324 mg 05/21/21 09:00 05/23/21 08:54 Ferrous Sulfate 324 Mg Tablet. PO 324 mg DAILY DREAD Administration Fluticasone Propionate 1 spray 05/21/21 09:00 05/23/21 08:59 Fluticasone Propionate Nasal 16 Gm [place] NOSTRIL-B 1 spray DAILY DREAD Administration Furosemide 40 mg 05/21/21 09:00 05/23/21 08:54 Furosemide 40 Mg Tablet PO 40 mg DAILY DREAD Administration Protocol Hydroxyzine HCl 25 mg 05/20/21 17:21 Hydroxyzine Hcl 25 Mg Tablet PO BEDTIME PRN Anxiety Ibuprofen 800 mg 05/20/21 21:59 05/21/21 06:32 Ibuprofen 800 Mg Tablet PO 800 mg Q8H PRN Administration Pain, Mild (Pain Scale 1-3) Lactulose 10 gm 05/21/21 09:00 05/23/21 10:36 Lactulose 20 Gm/30 Ml Solution PO 10 gm DAILY DREAD Administration Levothyroxine Sodium 100 mcg 05/21/21 09:00 05/23/21 08:54 Levothyroxine Sodium 100 Mcg Tablet PO 100 mcg DAILY DREAD Administration Lidocaine 1 patch 05/21/21 09:00 05/23/21 10:36 Lidocaine 4 % Patch Adh..Patch TRANSDERMA 1 patch DAILY DREAD Administration Loratadine 10 mg 05/21/21 09:00 05/23/21 08:53 Loratadine 10 Mg Tablet PO 10 mg DAILY DREAD Administration Lorazepam 1 mg 05/20/21 18:07 05/23/21 13:42 Lorazepam 1 Mg Tablet PO 1 mg Q4H PRN Administration anxiety/restlessness Magnesium Hydroxide 30 ml 05/20/21 17:21 Milk Of Magnesia 30 Ml Oral.Susp PO DAILY PRN Constipation Multivitamins/Vitamin C 1 tab 05/21/21 09:00 05/23/21 08:54 Multivitamin Tablet PO 1 tab DAILY DREAD Administration Nicotine 21 mg 05/22/21 09:00 05/23/21 08:53 Nicotine 21 Mg Patch.Td24 TRANSDERMA 21 mg DAILY DREAD Administration Nicotine Polacrilex 4 mg 05/20/21 21:31 05/23/21 20:58 Nicotine Polacrilex 4 Mg Lozenge BUCCAL 4 mg Q2H PRN Administration Nicotine Cravings Nystatin 1 appl 05/21/21 21:00 05/23/21 22:01 Nystatin Powder 15 Gm Bottle TOPICAL 1 appl BID DREAD Administration Protocol Olanzapine 10 mg 05/20/21 17:21 05/20/21 18:25 Olanzapine 10 Mg Tablet PO 10 mg BID PRN Administration Agitation Ondansetron HCl 4 mg 05/21/21 15:23 05/22/21 11:08 Ondansetron Odt 4 Mg Tab.Rapdis TRANSLINGU 4 mg Q6H PRN Administration Nausea Ropinirole HCl 1.5 mg 05/20/21 21:00 05/23/21 20:58 Ropinirole Hcl 0.5 Mg Tablet PO 1.5 mg BEDTIME DREAD Administration Spironolactone 50 mg 05/21/21 08:00 05/23/21 18:08 Spironolactone 25 Mg Tablet PO 50 mg BIDWM DREAD Administration Protocol Topiramate 50 mg 05/20/21 21:00 05/23/21 20:58 Topiramate 25 Mg Tablet PO 50 mg BID DREAD Administration Tramadol HCl 50 mg 05/22/21 11:41 05/24/21 05:35 Tramadol Hcl 50 Mg Tablet PO 50 mg Q6H PRN Administration hip pain Allergies Allergies Allergy/AdvReac Type Severity Reaction Status Date / Time banana [Banana] Allergy Severe ANAPHYLAXIS Verified 04/11/21 04:26 bee pollen [BEE STINGS] Allergy Unknown SWELLING Verified 04/11/21 04:26 cephalexin [Keflex] Allergy Unknown Unknown Verified 04/11/21 04:26 trazodone [TRAZODONE] Allergy Unknown BODY Verified 04/11/21 04:26 SITFFENS peanut [PEANUT] AdvReac Unknown TACHYCARDIA Verified 04/11/21 04:26 pistachio nut AdvReac Unknown TACHYCARDIA Verified 04/11/21 04:26 From KEFLEX Allergy Unknown UNKNOWN Uncoded 04/11/21 04:26 Assessment & Plan Assessment & Plan (1) Schizoaffective disorder: Status: Acute Code(s): F25.9 - Schizoaffective disorder, unspecified Assessment and Plan: Ct w reducing [facility] per (2) Skin ulcer: Status: Acute Code(s): L98.499 - Non-pressure chronic ulcer of skin of other sites with unspecified severity Assessment and Plan: hospitalist consult recommended no intervention for old and well-healing ulcers. areas of probably fungal infection on inner thighs noted, nystatin powder recommended (currently prescribed). Greater than 50% of the session was spent on counseling and/or coordination of care Reason for contiued inpatient stay Substantial Risk for: stable for discharge
[2021-05-24] MEDS: Topiramate 25 MG TABLET 50 MG PO ×2 (08:36→21:46)
[2021-05-24 08:37] VITALS: BP 140/61; PULSE 110
[2021-05-24] MEDS: Benztropine Mesylate 1 MG TABLET 2 MG PO ×2 (08:37→21:44)
[2021-05-24] MEDS: Furosemide 40 MG TABLET PO (08:37)
[2021-05-24] MEDS: Loratadine 10 MG TABLET PO (08:37)
[2021-05-24] MEDS: Multivitamin TABLET 1 TAB PO (08:37)
[2021-05-24] MEDS: carBAMazepine ER 200 MG TAB.ER.12H PO ×2 (08:37→21:46)
[2021-05-24] MEDS: Spironolactone 25 MG TABLET 50 MG PO ×2 (08:37→18:05)
[2021-05-24] MEDS: Levothyroxine Sodium 100 MCG TABLET PO (08:37)
[2021-05-24] MEDS: DULoxetine HCl 60 MG CAPSULE.DR PO (08:37)
[2021-05-24] MEDS: Ferrous Sulfate 324 MG TABLET.DR PO (08:38)
[2021-05-24] MEDS: Nicotine 21 MG PATCH.TD24 TRANSDERMA (08:38)
[2021-05-24] MEDS: Lidocaine 4 % Patch ADH..PATCH 1 PATCH TRANSDERMA (08:39)
[2021-05-24] MEDS: Lactulose 20 GM/30 ML SOLUTION 10 GM PO (09:49)
[2021-05-24] MEDS: Fluticasone Propionate Nasal 16 GM SPRAY 1 SPRAY NOSTRIL-B (09:49)
[2021-05-24 18:00] VITALS: BP 102/63; PULSE 100; RESP 18; TEMP 37.3; O2SAT 97
[2021-05-24 18:05] VITALS: BP 140/61; PULSE 110
[2021-05-24] MEDS: Ibuprofen 800 MG TABLET PO (18:21)
[2021-05-24] MEDS: cloZAPine 100 MG TABLET PO (21:45)
[2021-05-24] MEDS: rOPINIRole HCL 0.5 MG TABLET 1.5 MG PO (21:46)
[2021-05-24] MEDS: Nystatin Powder 15 GM BOTTLE 1 APPL TOPICAL (21:52)
[2021-05-24] MEDS: LORazepam 1 MG TABLET PO (21:57)
[2021-05-24] MEDS: Acetaminophen 325 MG TABLET 975 MG PO (23:23)
[2021-05-25 06:00] VITALS: BP 131/73; PULSE 88; RESP 16; TEMP 36.7; O2SAT 95
[2021-05-25] MEDS: Lidocaine 4 % Patch ADH..PATCH 1 PATCH TRANSDERMA (08:31)
[2021-05-25] MEDS: Lactulose 20 GM/30 ML SOLUTION 10 GM PO (08:31)
[2021-05-25] MEDS: Nicotine 21 MG PATCH.TD24 TRANSDERMA (08:31)
[2021-05-25] MEDS: Levothyroxine Sodium 100 MCG TABLET PO (08:32)
[2021-05-25] MEDS: Benztropine Mesylate 1 MG TABLET 2 MG PO (08:32)
[2021-05-25] MEDS: Ferrous Sulfate 324 MG TABLET.DR PO (08:32)
[2021-05-25] MEDS: Loratadine 10 MG TABLET PO (08:32)
[2021-05-25] MEDS: carBAMazepine ER 200 MG TAB.ER.12H PO (08:33)
[2021-05-25] MEDS: Furosemide 40 MG TABLET PO (08:33)
[2021-05-25] MEDS: Spironolactone 25 MG TABLET 50 MG PO (08:33)
[2021-05-25] MEDS: DULoxetine HCl 60 MG CAPSULE.DR PO (08:34)
[2021-05-25] MEDS: Multivitamin TABLET 1 TAB PO (08:34)
[2021-05-25] MEDS: Topiramate 25 MG TABLET 50 MG PO (08:34)
[2021-05-25] MEDS: traMADoL HCL 50 MG TABLET PO (08:43)
[2021-05-25] MEDS: Fluticasone Propionate Nasal 16 GM SPRAY 1 SPRAY NOSTRIL-B (10:04)
[2021-05-25] MEDS: Nystatin Powder 15 GM BOTTLE 1 APPL TOPICAL (10:04)
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
[2021-05-25 11:05] LABS: MANUAL DIFF FLAG NO
[2021-05-25 11:08] LABS: Basophils Percent Auto 0.4 % (0-2); Eosinophils Absolute Auto 0.1 X10*3/uL (0.0-0.4); Eosinophils Percent Auto 1.6 % (0-4); Hematocrit 41.3 % (37-47); Hemoglobin 13.7 g/dl (12.0-16.0); Imm Gran Abs Auto 0.06 X10*3/uL (0.00-0.03); Imm Gran Pct Auto 0.8 % (0.0-0.4); Lymphocytes Absolute Auto 1.5 X10*3/uL (1.2-4.9); Lymphocytes Percent Auto 19.9 % (20-40); Mean Corpuscular HGB Conc 33.2 g/dl (31.0-35.0); Mean Corpuscular Hemoglobin 31.8 pg (27.0-33.0); Mean Corpuscular Volume 95.8 fL (80-98); Mean Platelet Volume 9.2 fL (9.4-12.3); Monocytes Absolute Auto 0.7 X10*3/uL (0.1-1.2); Neutrophils Absolute Auto 4.9 X10*3/uL (2.0-8.3); Neutrophils Percent Auto 67.3 % (45-73); Platelet Count 326 X10*3/uL (160-400); Red Blood Count 4.31 X10*6/uL (4.20-5.50); Red Cell Distribution Width 13.8 % (11.0-16.0); White Blood Count 7.3 X10*3/uL (4.8-10.8)
--- NOTE | 2021-05-25 11:15 | PC.NURSE ---
Pt is calm and cooperative today. Pt met with Brett and signed a behavioral contract prior discharge. Pt with baseline c/o pain, using tramadol and lidocaine patch appropriately. VSS. Pt denies SI/HI. Pt picked up by house staff. Pt leaves with all belongings.
[2021-05-25 11:29] LABS: Alanine Aminotransferase 22 U/L (0-31); Albumin Level 3.6 g/dL (3.5-5.0); Alkaline Phosphatase 85 U/L (39-117); Aspartate Amino Transferase 16 U/L (5-31); Bilirubin Direct < 0.2 mg/dL (0.0-0.5); Bilirubin Total 0.3 mg/dL (0.0-1.0); Total Protein 6.5 g/dL (6.5-8.0)
[2021-05-25 12:05] LABS: Carbamazepine Tegretol 4.3 mcg/mL (5.0-12.0)
[2021-05-25 14:47] LABS: Anion Gap 15 (12-20); Blood Urea Nitrogen 17 mg/dL (9-16); Calcium 9.3 mg/dL (8.4-10.2); Carbon Dioxide 27 mmol/L (22-29); Chloride 99 mmol/L (96-108); Creatinine Clr Calc Pharmacy 151.3; Estimated Glomerular Filt Rate > 60; Glucose Random 87 mg/dL (60-115); Potassium 4.6 mmol/L (3.3-5.1); Sodium 136 mmol/L (135-145)
== END 2021-05-25 12:11 | disposition home or self-care (01) | DRG 885 ==
LOC: HO.ED 19:13 → HO.PADLT16 05-20 16:43
PROVIDERS: Emergency Medicine; Internal Medicine; Physician Assistant; Admitting Provider Psychiatry & Neurology Psychiatry; Emergency Provider Student in an Organized Health Care Education/Training Program; Visit Provider Psychiatry & Neurology Psychiatry
DX: F25.0 Schizoaffective disorder, bipolar type (principal); Z68.43 Body mass index [BMI] 50.0-59.9, adult; F43.12 Post-traumatic stress disorder, chronic; E66.01 Morbid (severe) obesity due to excess calories; L98.499 Non-pressure chronic ulcer of skin of other sites with unspecified severity; F17.210 Nicotine dependence, cigarettes, uncomplicated; Z71.6 Tobacco abuse counseling; Z91.5 Personal history of self-harm; Z91.14 Patient's other noncompliance with medication regimen; Z20.822 Contact with and (suspected) exposure to COVID-19; Z79.52 Long term (current) use of systemic steroids; Z79.890 Hormone replacement therapy; Z79.891 Long term (current) use of opiate analgesic; Z79.899 Other long term (current) drug therapy
CPT/HCPCS: 36415; 74018; 80048; 80076; 80156; 80164; 80307; 81025; 82947; 83036; 85025; 87635; 93005; 99285

== ENCOUNTER 2021-05-27 13:28 | Outpatient (REF) | payer OTHER, SELFPAY ==
[2021-05-27 13:54] LABS: MANUAL DIFF FLAG NO
[2021-05-27 13:57] LABS: Basophils Percent Auto 0.3 % (0-2); Eosinophils Absolute Auto 0.1 X10*3/uL (0.0-0.4); Eosinophils Percent Auto 1.4 % (0-4); Hematocrit 40.7 % (37-47); Hemoglobin 13.8 g/dl (12.0-16.0); Imm Gran Pct Auto 1.2 % (0.0-0.4); Lymphocytes Absolute Auto 1.7 X10*3/uL (1.2-4.9); Lymphocytes Percent Auto 19.4 % (20-40); Mean Corpuscular HGB Conc 33.9 g/dl (31.0-35.0); Mean Corpuscular Hemoglobin 31.6 pg (27.0-33.0); Mean Corpuscular Volume 93.1 fL (80-98); Mean Platelet Volume 9.2 fL (9.4-12.3); Monocytes Absolute Auto 0.6 X10*3/uL (0.1-1.2); Neutrophils Absolute Auto 6.1 X10*3/uL (2.0-8.3); Neutrophils Percent Auto 70.7 % (45-73); Platelet Count 343 X10*3/uL (160-400); Red Blood Count 4.37 X10*6/uL (4.20-5.50); Red Cell Distribution Width 13.7 % (11.0-16.0); White Blood Count 8.7 X10*3/uL (4.8-10.8)
== END 2021-05-27 13:29 | disposition home or self-care (01) ==
LOC: HO.LABR 13:28
PROVIDERS: Visit Provider Psychiatry & Neurology Psychiatry
DX: Z79.899 Other long term (current) drug therapy (principal)
CPT/HCPCS: 36415; 85025

== ENCOUNTER 2021-05-30 14:19 | Inpatient (IN) | payer OTHER, SELFPAY ==
--- NOTE | ~2021-05-30 | XR_ITS ---
EXAMINATION: XR PELVIS XR KNEE, RIGHT CLINICAL INFORMATION: Right hip pain. Right knee pain. COMPARISON: Right knee radiographs dated 09/15/2017. TECHNIQUE: AP views of the pelvis. AP and lateral views of the right knee. FINDINGS: PELVIS: Evaluation limited, secondary to patient body habitus and underpenetration. Moderate to severe right hip joint space narrowing with subchondral sclerosis and marginal osteophytes. No displaced fracture. No abnormal soft tissue calcification. RIGHT KNEE: Mild to moderate medial compartment joint space narrowing with subchondral sclerosis and marginal osteophytes. Tricompartmental marginal osteophytes. Findings are progressed when compared to the prior examination. No abnormal soft tissue calcification. No significant joint effusion. XR/XR pelvis 1-2V IMPRESSION: PELVIS: Moderate to severe right hip osteoarthritis. RIGHT KNEE: Moderate medial as well as mild patellofemoral and lateral compartment osteoarthritis, progressed when compared to the prior radiographs.
--- NOTE | ~2021-05-30 | XR_ITS ---
EXAMINATION: XR PELVIS XR KNEE, RIGHT CLINICAL INFORMATION: Right hip pain. Right knee pain. COMPARISON: Right knee radiographs dated 09/15/2017. TECHNIQUE: AP views of the pelvis. AP and lateral views of the right knee. FINDINGS: PELVIS: Evaluation limited, secondary to patient body habitus and underpenetration. Moderate to severe right hip joint space narrowing with subchondral sclerosis and marginal osteophytes. No displaced fracture. No abnormal soft tissue calcification. RIGHT KNEE: Mild to moderate medial compartment joint space narrowing with subchondral sclerosis and marginal osteophytes. Tricompartmental marginal osteophytes. Findings are progressed when compared to the prior examination. No abnormal soft tissue calcification. No significant joint effusion. XR/XR knee RT 2V IMPRESSION: PELVIS: Moderate to severe right hip osteoarthritis. RIGHT KNEE: Moderate medial as well as mild patellofemoral and lateral compartment osteoarthritis, progressed when compared to the prior radiographs.
[2021-05-30 14:28] VITALS: BP 106/53; PULSE 95; RESP 18; TEMP 37.1; O2SAT 95; BMI 72.7
--- NOTE | 2021-05-30 14:39 | ECG_ITS ---
Test Reason : ABNORMAL LABS Blood Pressure : / mmHG Vent. Rate : 088 BPM Atrial Rate : 088 BPM P-R Int : 124 ms QRS Dur : 084 ms QT Int : 370 ms P-R-T Axes : 044 006 051 degrees QTc Int : 447 ms Normal sinus rhythm Normal ECG When compared with ECG of 21-MAY-2021 20:53, No significant change was found Referred By: Julienne Gong Electronically Signed By:Brijesh Carlin
[2021-05-30] MEDS: clonazePAM 1 MG TABLET 2 MG PO (14:46)
--- NOTE | 2021-05-30 14:49 | PC.NURSE ---
Pt moved from 13 to 9 for sitter. Pt medicated with PRKaiser klonopin. Belongings in laundry room.
[2021-05-30 15:31] LABS: MANUAL DIFF FLAG NO
[2021-05-30 15:32] LABS: Basophils Percent Auto 0.3 % (0-2); Eosinophils Absolute Auto 0.1 X10*3/uL (0.0-0.4); Eosinophils Percent Auto 1.3 % (0-4); Hematocrit 37.3 % (37-47); Hemoglobin 12.6 g/dl (12.0-16.0); Imm Gran Abs Auto 0.06 X10*3/uL (0.00-0.03); Imm Gran Pct Auto 0.7 % (0.0-0.4); Lymphocytes Absolute Auto 1.6 X10*3/uL (1.2-4.9); Mean Corpuscular HGB Conc 33.8 g/dl (31.0-35.0); Mean Corpuscular Hemoglobin 31.7 pg (27.0-33.0); Monocytes Absolute Auto 0.7 X10*3/uL (0.1-1.2); Monocytes Percent Auto 8.3 % (2-11); Neutrophils Absolute Auto 6.4 X10*3/uL (2.0-8.3); Neutrophils Percent Auto 71.4 % (45-73); Platelet Count 310 X10*3/uL (160-400); Red Blood Count 3.97 X10*6/uL (4.20-5.50); White Blood Count 8.9 X10*3/uL (4.8-10.8)
[2021-05-30 15:57] LABS: Ethanol < 10 mg/dL
[2021-05-30 16:00] VITALS: BP 103/63; PULSE 92; RESP 16; TEMP 36.3; O2SAT 95
[2021-05-30 16:00] LABS: Alanine Aminotransferase 20 U/L (0-31); Albumin Level 3.3 g/dL (3.5-5.0); Alkaline Phosphatase 81 U/L (39-117); Anion Gap 15 (12-20); Aspartate Amino Transferase 16 U/L (5-31); Bilirubin Total 0.2 mg/dL (0.0-1.0); Blood Urea Nitrogen 11 mg/dL (9-16); Calcium 8.3 mg/dL (8.4-10.2); Carbon Dioxide 21 mmol/L (22-29); Chloride 99 mmol/L (96-108); Creatinine Clr Calc Pharmacy 149.9; Estimated Glomerular Filt Rate > 60; Glucose Random 97 mg/dL (60-115); Lipase 26 U/L (8-78); Magnesium 1.8 mg/dL (1.6-2.6); Potassium 4.3 mmol/L (3.3-5.1); Sodium 131 mmol/L (135-145); Total Protein 5.7 g/dL (6.5-8.0)
[2021-05-30 16:02] LABS: B Type Natriuretic Peptide 31 pg/mL (<100)
[2021-05-30 16:06] LABS: HCG Quantitative < 2 mIU/mL
[2021-05-30 16:11] LABS: COVID-19 Test Negative (Negative)
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
[2021-05-30 17:16] LABS: Glucose Urine UA NEG (NEG); Leukocyte Esterase Urine NEG (NEG); Nitrite Urine NEG (NEG); PH 7.5 (5.0-8.0); Urine Blood NEG (NEG); Urine Ketones NEG (NEG); Urine Protein NEG (NEG-TRACE)
[2021-05-30 17:20] LABS: Appearance Urine CLEAR; Color Urine YELLOW
[2021-05-30 17:31] LABS: Amphetamine Screen Urine Not Detected (Not Detect); Barbiturates, Urine Not Detected (Not Detect); Benzodiazepines Screen Urine Not Detected (Not Detect); Cannabinoid Screen Urine Not Detected (Not Detect); Cocaine Screen Urine Not Detected (Not Detect); Opiate Screen Urine Not Detected (Not Detect); Phencyclidine Screen Urine Not Detected (Not Detect)
[2021-05-30 19:06] VITALS: RESP 16
[2021-05-30] MEDS: Nicotine 14 MG PATCH.TD24 TRANSDERMA (19:08)
--- NOTE | 2021-05-30 19:56 | PC.NURSE ---
paperwork faxed to [facility]
[2021-05-30 20:00] VITALS: BP 123/74; PULSE 86; RESP 16; TEMP 36.3; O2SAT 95
--- NOTE | 2021-05-30 20:14 | PC.NURSE ---
patient need to be assisted with bedpan ,patient stated she is unable to get up out of bed due to pain ,patient is unable to clean her self eleanor syed
--- NOTE | 2021-05-30 20:32 | PC.NURSE ---
this nurse spoke to Criss Man at [facility] crisis ([phone]) intake to confirm patient information as fax was not received. no further questions or concerns from [facility] at this point.
--- NOTE | 2021-05-30 21:02 | PC.NURSE ---
Criss Avitia from [facility] crisis called to inform this nurse that Gina will not be seen by [facility] until the morning as they do not have any available overnight clinicians at this time. pt aware. MLP (Afia) aware.
[2021-05-30 21:55] VITALS: BP 123/78; PULSE 88; RESP 16; TEMP 36.5; O2SAT 96
[2021-05-31 02:27] VITALS: RESP 16
--- NOTE | 2021-05-31 05:35 | PC.NURSE ---
pt resting comfortably in recliner at this time, sleeping intermittently. respirations even and unlabored. no distress noted at this time. call huerta in reach.
[2021-05-31 05:36] VITALS: RESP 16
--- NOTE | 2021-05-31 06:27 | PC.NURSE ---
pt requesting medication for pain, 8/10 body aches. pt also requesting suboxone. notified
[2021-05-31 07:12] VITALS: BP 133/85; PULSE 89; RESP 17; O2SAT 97
--- NOTE | 2021-05-31 07:53 | PC.NURSE ---
Patient is sitting up in recliner in no acute distress. Pt is calm and cooperative at this time.
--- NOTE | 2021-05-31 09:00 | PC.NURSE ---
Patient is resting quietly in bed with eyes closed in no distress
--- NOTE | 2021-05-31 09:40 | PC.NURSE ---
Patient throwing water and items across room and out into hallway.
[2021-05-31] MEDS: Nicotine 21 MG PATCH.TD24 TRANSDERMA (11:08)
[2021-05-31] MEDS: clonazePAM 1 MG TABLET 2 MG PO ×2 (11:09→19:56)
--- NOTE | 2021-05-31 11:12 | PC.NURSE ---
Patient lying in bed screaming and demanding meds. Pt wants suboxone but is not on suboxone per list from senior care. Pt has removed nicotine patch. New patch applied. Pt is ambulatory to the bathroom. Pt remains under 1:1 observation. Pt given gingerale mixed with cranberry juice to drink per her request.
--- NOTE | 2021-05-31 12:38 | PC.NURSE ---
Patient is calm and sitting up in recliner in no distress
[2021-05-31] MEDS: Topiramate 25 MG TABLET 50 MG PO (19:55)
[2021-05-31] MEDS: cloZAPine 100 MG TABLET PO (19:55)
[2021-05-31] MEDS: OLANZapine 10 MG TABLET PO (19:55)
[2021-05-31] MEDS: Benztropine Mesylate 1 MG TABLET 2 MG PO (19:55)
[2021-05-31] MEDS: carBAMazepine ER 200 MG TAB.ER.12H PO (20:07)
[2021-05-31 20:10] VITALS: BP 98/62; PULSE 92
--- NOTE | 2021-05-31 21:48 | PC.NURSE ---
Patient is in bed currently, appears sleeping, no distress observed/reported, compliant with her medication, BP 98/62 HR92, [place] held per provider's order, appetite good, VSS, will continue to monitor.
[2021-06-01 00:14] VITALS: BP 128/74; PULSE 110; RESP 16; TEMP 36.6; O2SAT 95
[2021-06-01] MEDS: Levothyroxine Sodium 100 MCG TABLET PO (05:49)
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
--- NOTE | 2021-06-01 07:40 | PC.NURSE ---
pt sitting in community area watching TV. Pt appears calm. pt eating breakfast. will continue to monitor
[2021-06-01 07:42] VITALS: BP 101/71; PULSE 105; RESP 15; TEMP 36.2; O2SAT 96
[2021-06-01] MEDS: DULoxetine HCl 60 MG CAPSULE.DR PO (09:30)
[2021-06-01] MEDS: Benztropine Mesylate 1 MG TABLET 2 MG PO ×2 (09:30→21:10)
[2021-06-01] MEDS: Topiramate 25 MG TABLET 50 MG PO ×2 (09:30→21:10)
[2021-06-01] MEDS: Ferrous Sulfate 324 MG TABLET.DR PO (09:30)
[2021-06-01] MEDS: Loratadine 10 MG TABLET PO (09:30)
[2021-06-01] MEDS: carBAMazepine ER 200 MG TAB.ER.12H PO ×2 (09:30→21:10)
[2021-06-01 09:31] VITALS: BP 101/71; PULSE 105
[2021-06-01] MEDS: Furosemide 40 MG TABLET PO (09:31)
[2021-06-01] MEDS: Multivitamin TABLET 1 TAB PO (09:31)
[2021-06-01] MEDS: Spironolactone 25 MG TABLET 50 MG PO ×2 (09:31→21:14)
[2021-06-01] MEDS: clonazePAM 1 MG TABLET 2 MG PO ×2 (10:23→21:10)
--- NOTE | 2021-06-01 10:55 | PC.NURSE ---
PT YELLING AT ANOTHER PT IN [facility]. THIS RN AND ALL STAFF TRYING TO REDIRECT PT TO HER ROOM. SECURITY STAFF CALLED. PT GIVEN PRN OLANZAPINE. PT TOOK IT WILLINGLY. PT NOW SITTING IN CHAIR IN HER ROOM
[2021-06-01] MEDS: OLANZapine 10 MG TABLET PO ×2 (10:58→21:10)
--- NOTE | 2021-06-01 11:41 | PC.NURSE ---
[facility] CALLED & SPOKE WITH THIS RN. [facility] INQUIRING TO PTS STATUS. PT STATUS IS INPATIENT BED SEARCH
[2021-06-01] MEDS: Acetaminophen 325 MG TABLET 975 MG PO (18:08)
[2021-06-01 18:49] VITALS: BP 126/80; PULSE 102; O2SAT 97
[2021-06-01 21:14] VITALS: BP 153/98; PULSE 112
[2021-06-01] MEDS: cloZAPine 100 MG TABLET PO (21:21)
--- NOTE | 2021-06-01 22:20 | PC.NURSE ---
Patient got reassess for [facility] by [facility], disposition unchanged, section 12 inpatient bed search, patient behavior at baseline, loud, demanding, threatening, however redirectable, compliant with HS PO medication, no dstress observed/reported, will continue to monitor.
[2021-06-02] VITALS (7 sets, daily range): BP systolic 104–142; BP diastolic 65–94; PULSE 82–124; RESP 16–20; TEMP 36.2; O2SAT 93–98
[2021-06-02] MEDS: Levothyroxine Sodium 100 MCG TABLET PO (05:44)
--- NOTE | 2021-06-02 05:57 | PC.NURSE ---
Patient slept well, refused to ambulate most of the time, yelling and screaming at staff member by saying that she has wheelchair prescription and why cant she use wheel chair here, patient voided while standing in hallway in protest, behavior loud, disruptive, aggressive at time, verbally abusive to staff member, med compliant, VS at baseline, disposition section 12 inpatient bed search, will continue to monitor.
[2021-06-02] MEDS: Benztropine Mesylate 1 MG TABLET 2 MG PO ×2 (08:43→21:33)
[2021-06-02] MEDS: Loratadine 10 MG TABLET PO (08:43)
[2021-06-02] MEDS: DULoxetine HCl 60 MG CAPSULE.DR PO (08:43)
[2021-06-02] MEDS: carBAMazepine ER 200 MG TAB.ER.12H PO ×2 (08:43→21:31)
[2021-06-02] MEDS: Multivitamin TABLET 1 TAB PO (08:44)
[2021-06-02] MEDS: Spironolactone 25 MG TABLET 50 MG PO ×2 (08:44→21:32)
[2021-06-02] MEDS: Topiramate 25 MG TABLET 50 MG PO ×2 (08:44→21:31)
[2021-06-02] MEDS: Furosemide 40 MG TABLET PO (08:44)
[2021-06-02] MEDS: Ferrous Sulfate 324 MG TABLET.DR PO (08:44)
--- NOTE | 2021-06-02 08:55 | PC.NURSE ---
records faxed to thomas mak, and ed from [facility] for potential placement per sina persaud
--- NOTE | 2021-06-02 09:21 | PC.NURSE ---
patient at this time is being cooperative, given cup of coffee per request. ambulatory to telephone, seated using telephone, in behavioral control at this time.
--- NOTE | 2021-06-02 10:59 | PC.NURSE ---
pt expresses that staff is making her miserable and she wants to go home . plan of care explained to patient.
[2021-06-02] MEDS: clonazePAM 1 MG TABLET 2 MG PO (11:03)
--- NOTE | 2021-06-02 11:33 | PC.NURSE ---
pt agreeable to take PRN, ambulatory to void in toilet.
--- NOTE | 2021-06-02 11:51 | PC.NURSE ---
pt given sandwich and milk.
[2021-06-02] MEDS: Nicotine 21 MG PATCH.TD24 TRANSDERMA (11:57)
--- NOTE | 2021-06-02 13:57 | PC.NURSE ---
pt was requesting to look through belongings to find [id number] phone number, Wantrs assisted to search with MHA present at bedside to find telephone number. pt immediately snuck white substance and snorted this substance from belongings with staff prsent. RN to bedside, provider amina NAILS notified. vitals obtained. pt is alert, oriented, ambulatory. security called to bedside for re-search of patient. MD Causey also notified. Per / JAQUI no changes to plan of care at this time, will continue to monitor.
--- NOTE | 2021-06-02 14:48 | PC.NURSE ---
pt is alert, oriented, vitals obtained. patient speech is clear, following commands. unlabored even respirations. Plan to obtain tox screen per Fozia NAILS
--- NOTE | 2021-06-02 15:37 | PC.NURSE ---
Pt ambulatory. Skin pwd. Redirectable from RN station to bed w/o incident. Pt is eager to leave for [facility] and is aware that she must be observed for a time. States that wasn't cocaine. It was baby powder .
--- NOTE | 2021-06-02 15:54 | ECG_ITS ---
Test Reason : MED CLEARANCE Blood Pressure : / mmHG Vent. Rate : 105 BPM Atrial Rate : 105 BPM P-R Int : 134 ms QRS Dur : 084 ms QT Int : 342 ms P-R-T Axes : 068 015 067 degrees QTc Int : 452 ms Sinus tachycardia Otherwise normal ECG When compared with ECG of 30-MAY-2021 15:02, No significant change was found Referred By: Julienne Gong Electronically Signed By:GLORIA FOX MD
--- NOTE | 2021-06-02 16:21 | PC.NURSE ---
sleeping. snoring respirations. skin pwd.
--- NOTE | 2021-06-02 17:04 | PC.NURSE ---
ambulatory in department. pupils 5mm. pt states substance was heroin. behaviour is calmer than baseline. cooperative at this time. eager to get to [facility].
--- NOTE | 2021-06-02 18:29 | PC.NURSE ---
rn to rn with Nicole on [facility]. Rebecca NAILS looking over labs and isn't concerned about sodium of 131 at this time. Pt still ok for transfer to [facility].
[2021-06-02 19:17] LABS: COVID-19 Test Negative (Negative)
[2021-06-02] MEDS: cloZAPine 100 MG TABLET PO (21:33)
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
[2021-06-03] MEDS: Levothyroxine Sodium 100 MCG TABLET PO (06:39)
[2021-06-03 07:05] VITALS: BP 127/85; PULSE 96; RESP 20; TEMP 36.4; O2SAT 95
[2021-06-03 08:18] VITALS: BP 127/85; PULSE 96
[2021-06-03] MEDS: Topiramate 25 MG TABLET 50 MG PO ×2 (08:18→22:20)
[2021-06-03] MEDS: Spironolactone 25 MG TABLET 50 MG PO ×2 (08:18→22:28)
[2021-06-03] MEDS: Benztropine Mesylate 1 MG TABLET 2 MG PO ×2 (08:19→22:20)
[2021-06-03] MEDS: DULoxetine HCl 60 MG CAPSULE.DR PO (08:19)
[2021-06-03] MEDS: carBAMazepine ER 200 MG TAB.ER.12H PO ×2 (08:19→22:20)
[2021-06-03] MEDS: Furosemide 40 MG TABLET PO (08:19)
[2021-06-03] MEDS: Multivitamin TABLET 1 TAB PO (08:19)
[2021-06-03] MEDS: Loratadine 10 MG TABLET PO (08:19)
[2021-06-03] MEDS: Ferrous Sulfate 324 MG TABLET.DR PO (08:19)
[2021-06-03] MEDS: Nicotine 21 MG PATCH.TD24 TRANSDERMA (08:48)
[2021-06-03] MEDS: Nicotine Polacrilex 2 MG GUM 4 MG BUCCAL (08:49)
[2021-06-03] MEDS: Acetaminophen 325 MG TABLET 975 MG PO ×2 (10:03→22:33)
[2021-06-03 11:30] LABS: MANUAL DIFF FLAG NO
[2021-06-03 11:35] LABS: Basophils Percent Auto 0.3 % (0-2); Eosinophils Absolute Auto 0.1 X10*3/uL (0.0-0.4); Hematocrit 42.5 % (37-47); Hemoglobin 14.4 g/dl (12.0-16.0); Imm Gran Abs Auto 0.04 X10*3/uL (0.00-0.03); Imm Gran Pct Auto 0.4 % (0.0-0.4); Lymphocytes Absolute Auto 1.7 X10*3/uL (1.2-4.9); Lymphocytes Percent Auto 18.2 % (20-40); Mean Corpuscular HGB Conc 33.9 g/dl (31.0-35.0); Mean Corpuscular Hemoglobin 32.4 pg (27.0-33.0); Mean Corpuscular Volume 95.7 fL (80-98); Mean Platelet Volume 9.1 fL (9.4-12.3); Monocytes Percent Auto 10.8 % (2-11); Neutrophils Absolute Auto 6.3 X10*3/uL (2.0-8.3); Neutrophils Percent Auto 69.3 % (45-73); Platelet Count 358 X10*3/uL (160-400); Red Blood Count 4.44 X10*6/uL (4.20-5.50); Red Cell Distribution Width 14.5 % (11.0-16.0); White Blood Count 9.1 X10*3/uL (4.8-10.8)
[2021-06-03 12:14] LABS: Alanine Aminotransferase 22 U/L (0-31); Albumin Level 3.8 g/dL (3.5-5.0); Alkaline Phosphatase 92 U/L (39-117); Anion Gap 13 (12-20); Aspartate Amino Transferase 15 U/L (5-31); Bilirubin Direct < 0.2 mg/dL (0.0-0.5); Bilirubin Total 0.2 mg/dL (0.0-1.0); Blood Urea Nitrogen 17 mg/dL (9-16); Calcium 9.4 mg/dL (8.4-10.2); Carbon Dioxide 26 mmol/L (22-29); Chloride 102 mmol/L (96-108); Creatinine Clr Calc Pharmacy 142.6; Estimated Glomerular Filt Rate > 60; Glucose Random 98 mg/dL (60-115); Potassium 4.4 mmol/L (3.3-5.1); Sodium 137 mmol/L (135-145); Total Protein 6.7 g/dL (6.5-8.0)
[2021-06-03 12:33] LABS: Carbamazepine Tegretol 4.8 mcg/mL (5.0-12.0)
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
[2021-06-03] MEDS: OLANZapine 10 MG TABLET PO (13:08)
--- NOTE | 2021-06-03 13:32 | MHC.CLN ---
NUTRITION OBSERVED PATIENT AT LUNCH EATING INDEPENDENTLY. WEIGHT RECORDED 180.3 KG AND APPEARS ACCURATE WITH BMI=72.7.
[2021-06-03 13:54] VITALS: BP 127/85; PULSE 96
[2021-06-03 17:50] VITALS: BP 128/86; PULSE 90; RESP 18; TEMP 37.2; O2SAT 99
[2021-06-03] MEDS: cloZAPine 100 MG TABLET PO (22:20)
[2021-06-03] MEDS: Nystatin Powder 15 GM BOTTLE 1 APPL TOPICAL (22:21)
[2021-06-03 22:28] VITALS: BP 106/57; PULSE 117
[2021-06-04 06:00] VITALS: BP 124/86; PULSE 103; RESP 18; TEMP 36.8; O2SAT 96
[2021-06-04] MEDS: Levothyroxine Sodium 100 MCG TABLET PO (06:36)
[2021-06-04 07:00] VITALS: BMI 74.0
[2021-06-04] MEDS: Fluticasone Propionate Nasal 16 GM SPRAY 1 SPRAY NOSTRIL-B (08:05)
[2021-06-04] MEDS: Topiramate 25 MG TABLET 50 MG PO (08:06)
[2021-06-04] MEDS: Loratadine 10 MG TABLET PO (08:06)
[2021-06-04] MEDS: carBAMazepine ER 200 MG TAB.ER.12H PO (08:07)
[2021-06-04] MEDS: Ferrous Sulfate 324 MG TABLET.DR PO (08:07)
[2021-06-04] MEDS: Benztropine Mesylate 1 MG TABLET 2 MG PO ×2 (08:07→20:49)
[2021-06-04 08:08] VITALS: BP 124/86; PULSE 103
[2021-06-04] MEDS: Furosemide 40 MG TABLET PO (08:08)
[2021-06-04] MEDS: Spironolactone 25 MG TABLET 50 MG PO ×2 (08:08→20:42)
[2021-06-04] MEDS: Multivitamin TABLET 1 TAB PO (08:08)
[2021-06-04] MEDS: DULoxetine HCl 60 MG CAPSULE.DR PO (08:09)
[2021-06-04] MEDS: Nicotine Polacrilex 2 MG GUM 4 MG BUCCAL ×3 (09:32→19:15)
[2021-06-04] MEDS: Nystatin Powder 15 GM BOTTLE 1 APPL TOPICAL ×2 (10:59→21:06)
[2021-06-04] MEDS: Nicotine 21 MG PATCH.TD24 TRANSDERMA (10:59)
[2021-06-04] MEDS: Ibuprofen 600 MG TABLET PO (13:37)
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
[2021-06-04 17:59] VITALS: BP 104/64; PULSE 103; RESP 18; TEMP 36.7; O2SAT 96
[2021-06-04] MEDS: OLANZapine 10 MG TABLET PO (19:15)
[2021-06-04 20:42] VITALS: BP 116/65; PULSE 103
[2021-06-04] MEDS: cloZAPine 100 MG TABLET PO (20:49)
[2021-06-04] MEDS: Topiramate 25 MG TABLET PO (20:49)
[2021-06-04] MEDS: carBAMazepine ER 100 MG TAB.ER.12H 300 MG PO (20:49)
[2021-06-05] MEDS: Nystatin Powder 15 GM BOTTLE 1 APPL TOPICAL (00:45)
[2021-06-05 06:00] VITALS: BP 135/90; PULSE 93; TEMP 36.4; O2SAT 95
[2021-06-05] MEDS: Levothyroxine Sodium 100 MCG TABLET PO (06:37)
[2021-06-05] MEDS: Fluticasone Propionate Nasal 16 GM SPRAY 1 SPRAY NOSTRIL-B (08:38)
[2021-06-05] MEDS: Nicotine 21 MG PATCH.TD24 TRANSDERMA (08:38)
[2021-06-05 08:40] VITALS: BP 135/90; PULSE 93
[2021-06-05] MEDS: Spironolactone 25 MG TABLET 50 MG PO ×2 (08:40→20:31)
[2021-06-05] MEDS: Furosemide 40 MG TABLET PO (08:40)
[2021-06-05] MEDS: Benztropine Mesylate 1 MG TABLET 2 MG PO ×2 (08:40→20:30)
[2021-06-05] MEDS: DULoxetine HCl 60 MG CAPSULE.DR PO (08:40)
[2021-06-05] MEDS: Loratadine 10 MG TABLET PO (08:40)
[2021-06-05] MEDS: Ferrous Sulfate 324 MG TABLET.DR PO (08:40)
[2021-06-05] MEDS: Multivitamin TABLET 1 TAB PO (08:40)
[2021-06-05] MEDS: carBAMazepine ER 100 MG TAB.ER.12H 300 MG PO ×2 (08:40→20:30)
[2021-06-05] MEDS: Topiramate 25 MG TABLET PO ×2 (08:40→20:31)
[2021-06-05] MEDS: Nicotine Polacrilex 2 MG GUM 4 MG BUCCAL ×3 (12:03→18:34)
[2021-06-05 12:05] LABS: Glucose Urine UA NEG (NEG); Leukocyte Esterase Urine TRACE (NEG); Nitrite Urine NEG (NEG); PH 5.5 (5.0-8.0); Urine Blood NEG (NEG); Urine Ketones NEG (NEG); Urine Protein NEG (NEG-TRACE)
[2021-06-05 12:06] LABS: Appearance Urine CLEAR; Color Urine YELLOW
[2021-06-05 12:22] LABS: Bacteria Urine TRACE /LPF; Mucus Urine TRACE /LPF; RBC Urine 0-2 /HPF (0); Squamous Epithelial Cell Urine TRACE /LPF; WBC Urine 0-2 /HPF (0-4)
--- NOTE | 2021-06-05 15:01 | PC.NURSE ---
PT SEEN BY THE WOUND NURSE TODAY FOR EXCORIATION UNDER HER ABDOMINAL FOLDS AND BREAST. NEW ORDER FOR INTERDRY TO BE FOLDED AND PLACED UNDER BREAST AND FOLDS BID OR IF SOILED. PT ALSO HAS A CYST ON HER LEFT THIGH, WARM COMPRESS TO BE APPLIED. PT REFUSED TODAY AND WANTED TO REST. IF CYST OPENS NOTIFY WOUND TEAM FOR FURTHER INSTRUCTION. PT WAS CALM AND COOPERATIVE WITH WOUND NURSE. PT HAD A GOOD APPETITE AND DENIED PAIN. UA SENT TO R/O UTI, RESULTS NEGATIVE.
--- NOTE | 2021-06-05 15:26 | HO.PSYCHPN ---
Subjective Subjective Date of Service: 06/05/21 Reason For Visit: Agitation Interim History: pt found in her room obtaining a urine sample for UA. she was observed to ambulate across the length of her room without assistive devices while breathing heavily (from exertion). she reported her mood as great and suggested she could discharge today. she had no complaints or requests. per staff, cooperative. c/o pain in her knees. c/o high anx/dep last evening. c/o TV talking to her and causing her some distress in doing so. received some product from wound care team to use in her intertriginous spaces. PT consult put in for review of the suitability of her adaptive devices. Mental Status Exam Mental Status Exam Narrative: morbidly obese, freely ambulating and then seated in wheelchair in her room. no PMA/PMR and appearing less tired/sedated. dressed casually, appropriately. speech nml loudness, flattened tone, nml amount, nml latency. thoughts linear and logical. mood great. affect constricted, normo-intense, non-labile. no SI/HI/AVH expressed. Diagnostics Vital Signs (24Hr): Vital Signs - 24 hr 06/04/21 17:59 06/04/21 20:42 06/05/21 06:00 Temperature 98.0 F 97.6 F Pulse Rate 103 H 103 H 93 Respiratory Rate 18 Blood Pressure 104/64 116/65 135/90 H Pulse Oximetry 96 95 06/05/21 08:40 Temperature Pulse Rate 93 Respiratory Rate Blood Pressure 135/90 H Pulse Oximetry Body Mass Index 74.0 Labs Results: 06/03/21 11:11 06/03/21 11:11 Labs: Laboratory Results - last 48 hr 06/05/21 11:30 Urine Color YELLOW Urine Appearance CLEAR Urine pH 5.5 Ur Specific [place] 1.010 Urine Protein NEG Urine Glucose (UA) NEG Urine Ketones NEG Urine Blood NEG Urine Nitrite NEG Ur Leukocyte Esterase TRACE H Urine RBC 0-2 Urine WBC 0-2 Ur Squamous Epith Cells TRACE Urine Bacteria TRACE Urine Mucus TRACE Imaging Radiology Impressions: ITS Impressions Knee X-Ray 05/30/21 16:35 IMPRESSION: PELVIS: Moderate to severe right hip osteoarthritis. RIGHT KNEE: Moderate medial as well as mild patellofemoral and lateral compartment osteoarthritis, progressed when compared to the prior radiographs. Pelvis X-Ray 05/30/21 16:35 IMPRESSION: PELVIS: Moderate to severe right hip osteoarthritis. RIGHT KNEE: Moderate medial as well as mild patellofemoral and lateral compartment osteoarthritis, progressed when compared to the prior radiographs. Medications Medications Current Medications Generic Name Dose Route Start Last Admin Trade Name Freq PRN Reason Stop Dose Admin Acetaminophen 975 mg 05/31/21 16:50 06/03/21 22:33 Acetaminophen 325 Mg Tablet PO 975 mg TID PRN Administration Pain, Mild Al Hydroxide/Mg Hydroxide 30 ml 06/02/21 21:10 Magnesium Hydrox/Alum Hydrox 30 Ml Oral.Susp PO Q6H PRN Heartburn/Nausea Albuterol Sulfate 2 puff 05/31/21 16:50 Albuterol Sulfate 90 Mcg 8 Gm Inhaler INHALE Q4H PRN Wheezing Benztropine Mesylate 2 mg 05/31/21 21:00 06/05/21 08:40 Benztropine Mesylate 1 Mg Tablet PO 2 mg BID DREAD Administration Carbamazepine 300 mg 06/04/21 21:00 06/05/21 08:40 Carbamazepine Er 100 Mg Tab.Er.12h PO 300 mg BID DREAD Administration Clozapine 100 mg 05/31/21 21:00 06/04/21 20:49 Clozapine 100 Mg Tablet PO 100 mg BEDTIME DREAD Administration Duloxetine HCl 60 mg 06/01/21 09:00 06/05/21 08:40 Duloxetine Hcl 60 Mg Capsule. PO 60 mg DAILY DREAD Administration Ferrous Sulfate 324 mg 06/01/21 09:00 06/05/21 08:40 Ferrous Sulfate 324 Mg Tablet. PO 324 mg DAILY DREAD Administration Fluticasone Propionate 1 spray 06/01/21 09:00 06/05/21 08:38 Fluticasone Propionate Nasal 16 Gm [place] NOSTRIL-B 1 spray DAILY DREAD Administration Furosemide 40 mg 06/01/21 09:00 06/05/21 08:40 Furosemide 40 Mg Tablet PO 40 mg DAILY DREAD Administration Protocol Hydroxyzine HCl 50 mg 06/02/21 21:10 Hydroxyzine Hcl 25 Mg Tablet PO QID PRN Anxiety Ibuprofen 600 mg 06/03/21 22:58 06/04/21 13:37 Ibuprofen 600 Mg Tablet PO 600 mg Q6H PRN Administration Pain, Moderate (Pain Scale 4-6 Levothyroxine Sodium 100 mcg 06/01/21 06:00 06/05/21 06:37 Levothyroxine Sodium 100 Mcg Tablet PO 100 mcg DAILY@0600 DREAD Administration Loratadine 10 mg 06/01/21 09:00 06/05/21 08:40 Loratadine 10 Mg Tablet PO 10 mg DAILY DREAD Administration Magnesium Hydroxide 30 ml 06/02/21 21:10 Milk Of Magnesia 30 Ml Oral.Susp PO DAILY PRN Constipation Multivitamins/Vitamin C 1 tab 06/01/21 09:00 06/05/21 08:40 Multivitamin Tablet PO 1 tab DAILY DREAD Administration Nicotine 21 mg 06/03/21 09:00 06/05/21 08:38 Nicotine 21 Mg Patch.Td24 TRANSDERMA 21 mg DAILY DREAD Administration Nicotine Polacrilex 4 mg 06/03/21 08:39 06/05/21 12:03 Nicotine Polacrilex 2 Mg Gum BUCCAL 4 mg Q2H PRN Administration Nicotine Cravings Non-Formulary Medication 15 mg 06/03/21 12:00 06/05/21 08:39 Meloxicam PO 15 mg DAILY DREAD Administration Olanzapine 10 mg 05/31/21 16:50 06/04/21 19:15 Olanzapine 10 Mg Tablet PO 10 mg BID PRN Administration Agitation Olanzapine 5 mg 06/02/21 21:10 Olanzapine 5 Mg Tablet PO Q4H PRN agitation or psychosis Ondansetron HCl 4 mg 06/03/21 09:46 06/03/21 09:51 Ondansetron Odt 4 Mg Tab.Rapdis TRANSLINGU 4 mg Q6H PRN Administration Nausea Polyethylene Glycol 17 gm 06/03/21 12:01 Polyethylene Glycol 3350 17 Gm Powd.Pack PO DAILY PRN Constipation Spironolactone 50 mg 05/31/21 21:00 06/05/21 08:40 Spironolactone 25 Mg Tablet PO 50 mg BID DREAD Administration Protocol Topiramate 25 mg 06/04/21 21:00 06/05/21 08:40 Topiramate 25 Mg Tablet PO 25 mg BID DREAD Administration Allergies Allergies Allergy/AdvReac Type Severity Reaction Status Date / Time banana [Banana] Allergy Severe ANAPHYLAXIS Verified 04/11/21 04:26 bee pollen [BEE STINGS] Allergy Unknown SWELLING Verified 04/11/21 04:26 cephalexin [Keflex] Allergy Unknown Unknown Verified 04/11/21 04:26 trazodone [TRAZODONE] Allergy Unknown BODY Verified 04/11/21 04:26 SITFFENS peanut [PEANUT] AdvReac Unknown TACHYCARDIA Verified 04/11/21 04:26 pistachio nut AdvReac Unknown TACHYCARDIA Verified 04/11/21 04:26 From KEFLEX Allergy Unknown UNKNOWN Uncoded 04/11/21 04:26 Assessment & Plan Assessment & Plan (1) Schizoaffective disorder: Status: Acute Code(s): F25.9 - Schizoaffective disorder, unspecified Assessment and Plan: labs and tegretol level checked and reviewed. encourage use of olanzapine 10 mg PRN agitation. requested consult from wound care team to review skin findings. mgmt has been modified since their assessment. increased tegretol from 200 BID to 300 BID as of 06/05. taper and DC topamax (as of 06/07) as redundant. otherwise continue outpt regimen. Greater than 50% of the session was spent on counseling and/or coordination of care Reason for contiued inpatient stay Substantial Risk for: harm to self, harm to others, inability to function and rapid decompensation
--- NOTE | 2021-06-05 16:05 | PC.NURSE ---
Addendum entered by Myah Villa RN 06/05/21 16:07: Patient also has a cyst/boil in left inner thigh. Warm moist compress to cyst until it start to drain then antibiotic ointment will be applied to wound. Original Note: Skin assessment completed today. Patient has moisture associated skin damage under abdominal folds. Interdry was placed in the folds to wick away moisture and heal open areas. Spoke with nurse to explain skin issue and directions for interdry.
[2021-06-05] MEDS: Acetaminophen 325 MG TABLET 975 MG PO (16:37)
[2021-06-05 20:31] VITALS: BP 96/51; PULSE 101
[2021-06-05] MEDS: Ibuprofen 600 MG TABLET PO (20:31)
[2021-06-05] MEDS: cloZAPine 100 MG TABLET PO (20:31)
[2021-06-05 20:38] VITALS: TEMP 36
[2021-06-06] MEDS: Nicotine Polacrilex 2 MG GUM 4 MG BUCCAL ×5 (03:33→19:55)
[2021-06-06] MEDS: Acetaminophen 325 MG TABLET 975 MG PO ×2 (03:36→20:33)
--- NOTE | 2021-06-06 04:58 | HO.PSYCHPN ---
Subjective Subjective Date of Service: 06/08/21 Reason For Visit: Agitation Interim History: Pt mostly in bed all day. She reports doing well. She reports resting on the weekend. She denies SI/HI. She asked this personal lines underwriter for clonazepam but informed this is not an options. Pt showed understanding and did not insist. She reported constipation, received miralax and MOM- pending effect. Per nursing, some inappropriate sexual comments to staff, needs redirection. No behavioral concerns Review of Systems Review of Systems Constitutional : No Fever, No Chills ENT/Mouth : No Ear Pain, No Nasal Congestion, No sore throat Eyes: No Eye Pain, No Swelling, No Redness Cardiovascular : No Chest Pain, No SOB Respiratory : No Cough, No Sputum, No Dyspnea Gastrointestinal : No ingestions, No Nausea, No Vomiting, No Diarrhea, No Hematochezia, No Melena Genitourinary : No Dysuria, No Urinary Frequency, No Hematuria Musculoskeletal : Positive joint pain to right knee and right hip, No Myalgias Skin : No Skin Lesions, No rash Neuro : No Weakness, No Numbness, No Paresthesias, No Dizziness, No Headache Psych : + Anxiety/agitation/aggression, No Depression, No SI, No thoughts of self injury, No HI, No AVH, Heme/Lymph: No Lymphadenopathy Endocrine : No Polyuria, No Polydipsia Yes all other systems are reviewed and are negative Mental Status Exam Mental Status Exam Narrative: morbidly obese, freely ambulating and then seated in wheelchair in her room. no PMA/PMR and appearing less tired/sedated. dressed casually, appropriately. speech nml loudness, flattened tone, nml amount, nml latency. thoughts linear and logical. mood great. affect constricted, normo-intense, non-labile. no SI/HI/AVH expressed. Diagnostics Vital Signs (24Hr): Vital Signs - 24 hr 06/07/21 08:06 06/07/21 08:19 06/07/21 22:21 Temperature 97.9 F 97.7 F Pulse Rate 77 77 95 Respiratory Rate 16 20 Blood Pressure 129/84 129/84 131/82 Pulse Oximetry 95 96 06/07/21 22:28 Temperature Pulse Rate 86 Respiratory Rate Blood Pressure Pulse Oximetry Body Mass Index 74.0 Labs Results: 06/03/21 11:11 06/03/21 11:11 Imaging Radiology Impressions: ITS Impressions Knee X-Ray 05/30/21 16:35 IMPRESSION: PELVIS: Moderate to severe right hip osteoarthritis. RIGHT KNEE: Moderate medial as well as mild patellofemoral and lateral compartment osteoarthritis, progressed when compared to the prior radiographs. Pelvis X-Ray 05/30/21 16:35 IMPRESSION: PELVIS: Moderate to severe right hip osteoarthritis. RIGHT KNEE: Moderate medial as well as mild patellofemoral and lateral compartment osteoarthritis, progressed when compared to the prior radiographs. Medications Medications Current Medications Generic Name Dose Route Start Last Admin Trade Name Freq PRN Reason Stop Dose Admin Acetaminophen 975 mg 05/31/21 16:50 06/07/21 22:25 Acetaminophen 325 Mg Tablet PO 975 mg TID PRN Administration Pain, Mild Al Hydroxide/Mg Hydroxide 30 ml 06/02/21 21:10 Magnesium Hydrox/Alum Hydrox 30 Ml Oral.Susp PO Q6H PRN Heartburn/Nausea Albuterol Sulfate 2 puff 05/31/21 16:50 Albuterol Sulfate 90 Mcg 8 Gm Inhaler INHALE Q4H PRN Wheezing Benztropine Mesylate 2 mg 05/31/21 21:00 06/07/21 22:27 Benztropine Mesylate 1 Mg Tablet PO 2 mg BID DREAD Administration Carbamazepine 300 mg 06/04/21 21:00 06/07/21 22:27 Carbamazepine Er 100 Mg Tab.Er.12h PO 300 mg BID DREAD Administration Clozapine 100 mg 05/31/21 21:00 06/07/21 22:29 Clozapine 100 Mg Tablet PO 100 mg BEDTIME DREAD Administration Duloxetine HCl 60 mg 06/01/21 09:00 06/07/21 08:05 Duloxetine Hcl 60 Mg Capsule. PO 60 mg DAILY DREAD Administration Ferrous Sulfate 324 mg 06/01/21 09:00 06/07/21 08:07 Ferrous Sulfate 324 Mg Tablet. PO 324 mg DAILY DREAD Administration Fluticasone Propionate 1 spray 06/01/21 09:00 06/07/21 08:09 Fluticasone Propionate Nasal 16 Gm [place] NOSTRIL-B 1 spray DAILY DREAD Administration Furosemide 40 mg 06/01/21 09:00 06/07/21 08:06 Furosemide 40 Mg Tablet PO 40 mg DAILY DREAD Administration Protocol Hydroxyzine HCl 50 mg 06/02/21 21:10 06/06/21 16:45 Hydroxyzine Hcl 25 Mg Tablet PO 50 mg QID PRN Administration Anxiety Ibuprofen 600 mg 06/03/21 22:58 06/08/21 02:43 Ibuprofen 600 Mg Tablet PO 600 mg Q6H PRN Administration Pain, Moderate (Pain Scale 4-6 Levothyroxine Sodium 100 mcg 06/01/21 06:00 06/07/21 08:06 Levothyroxine Sodium 100 Mcg Tablet PO 100 mcg DAILY@0600 DREAD Administration Loratadine 10 mg 06/01/21 09:00 06/07/21 08:06 Loratadine 10 Mg Tablet PO 10 mg DAILY DREAD Administration Magnesium Hydroxide 30 ml 06/02/21 21:10 06/06/21 14:09 Milk Of Magnesia 30 Ml Oral.Susp PO 30 ml DAILY PRN Administration Constipation Multivitamins/Vitamin C 1 tab 06/01/21 09:00 06/07/21 08:07 Multivitamin Tablet PO 1 tab DAILY DREAD Administration Nicotine 21 mg 06/03/21 09:00 06/07/21 08:05 Nicotine 21 Mg Patch.Td24 TRANSDERMA 21 mg DAILY DREAD Administration Nicotine Polacrilex 4 mg 06/03/21 08:39 06/08/21 04:17 Nicotine Polacrilex 2 Mg Gum BUCCAL 4 mg Q2H PRN Administration Nicotine Cravings Non-Formulary Medication 15 mg 06/03/21 12:00 06/07/21 08:09 Meloxicam PO 15 mg DAILY DREAD Administration Olanzapine 10 mg 05/31/21 16:50 06/04/21 19:15 Olanzapine 10 Mg Tablet PO 10 mg BID PRN Administration Agitation Olanzapine 5 mg 06/02/21 21:10 Olanzapine 5 Mg Tablet PO Q4H PRN agitation or psychosis Ondansetron HCl 4 mg 06/03/21 09:46 06/05/21 20:31 Ondansetron Odt 4 Mg Tab.Rapdis TRANSLINGU 4 mg Q6H PRN Administration Nausea Polyethylene Glycol 17 gm 06/03/21 12:01 06/06/21 10:04 Polyethylene Glycol 3350 17 Gm Powd.Pack PO 17 gm DAILY PRN Administration Constipation Spironolactone 50 mg 05/31/21 21:00 06/07/21 22:28 Spironolactone 25 Mg Tablet PO 50 mg BID DREAD Administration Protocol Allergies Allergies Allergy/AdvReac Type Severity Reaction Status Date / Time banana [Banana] Allergy Severe ANAPHYLAXIS Verified 04/11/21 04:26 bee pollen [BEE STINGS] Allergy Unknown SWELLING Verified 04/11/21 04:26 cephalexin [Keflex] Allergy Unknown Unknown Verified 04/11/21 04:26 trazodone [TRAZODONE] Allergy Unknown BODY Verified 04/11/21 04:26 SITFFENS peanut [PEANUT] AdvReac Unknown TACHYCARDIA Verified 04/11/21 04:26 pistachio nut AdvReac Unknown TACHYCARDIA Verified 04/11/21 04:26 From KEFLEX Allergy Unknown UNKNOWN Uncoded 04/11/21 04:26 Assessment & Plan Assessment & Plan (1) Schizoaffective disorder: Status: Acute Code(s): F25.9 - Schizoaffective disorder, unspecified Assessment and Plan: labs and tegretol level checked and reviewed. encourage use of olanzapine 10 mg PRN agitation. requested consult from wound care team to review skin findings. mgmt has been modified since their assessment. increased tegretol from 200 BID to 300 BID as of 06/05. taper and DC topamax (as of 06/07) as redundant. otherwise continue outpt regimen. Greater than 50% of the session was spent on counseling and/or coordination of care Reason for contiued inpatient stay Substantial Risk for: inability to function
[2021-06-06 07:57] VITALS: BP 125/70; PULSE 103; RESP 16; TEMP 36.8; O2SAT 96
[2021-06-06] MEDS: Nicotine 21 MG PATCH.TD24 TRANSDERMA (07:59)
[2021-06-06] MEDS: carBAMazepine ER 100 MG TAB.ER.12H 300 MG PO ×2 (08:00→20:32)
[2021-06-06 08:01] VITALS: BP 125/70; PULSE 103
[2021-06-06] MEDS: Spironolactone 25 MG TABLET 50 MG PO ×2 (08:01→20:32)
[2021-06-06] MEDS: Furosemide 40 MG TABLET PO (08:01)
[2021-06-06] MEDS: Loratadine 10 MG TABLET PO (08:01)
[2021-06-06] MEDS: Benztropine Mesylate 1 MG TABLET 2 MG PO ×2 (08:01→20:32)
[2021-06-06] MEDS: Multivitamin TABLET 1 TAB PO (08:02)
[2021-06-06] MEDS: DULoxetine HCl 60 MG CAPSULE.DR PO (08:02)
[2021-06-06] MEDS: Ferrous Sulfate 324 MG TABLET.DR PO (08:02)
[2021-06-06] MEDS: Topiramate 25 MG TABLET PO ×2 (08:02→20:32)
[2021-06-06] MEDS: Levothyroxine Sodium 100 MCG TABLET PO (08:02)
[2021-06-06] MEDS: Fluticasone Propionate Nasal 16 GM SPRAY 1 SPRAY NOSTRIL-B (08:07)
[2021-06-06] MEDS: polyethylene glycoL 3350 17 GM POWD.PACK PO (10:04)
[2021-06-06] MEDS: Milk of Magnesia 30 ML ORAL.SUSP PO (14:09)
[2021-06-06] MEDS: Ibuprofen 600 MG TABLET PO (14:44)
[2021-06-06] MEDS: hydrOXYzine HCL 25 MG TABLET 50 MG PO (16:45)
[2021-06-06 18:00] VITALS: TEMP 36.7; O2SAT 97
[2021-06-06 20:32] VITALS: BP 125/72; PULSE 99
[2021-06-06] MEDS: cloZAPine 100 MG TABLET PO (20:32)
--- NOTE | 2021-06-07 05:00 | HO.PSYCHPN ---
Subjective Subjective Date of Service: 06/08/21 Reason For Visit: Agitation Interim History: Pt mostly in bed all day today.. She reports doing well. She reports resting on the weekend. She denies SI/HI. She reported constipation, received miralax and MOM- with good effect. Per nursing, some inappropriate sexual comments to staff, needs redirection. No behavioral concerns. Taking medications as prescribed. No side effects. Review of Systems Review of Systems Constitutional : No Fever, No Chills ENT/Mouth : No Ear Pain, No Nasal Congestion, No sore throat Eyes: No Eye Pain, No Swelling, No Redness Cardiovascular : No Chest Pain, No SOB Respiratory : No Cough, No Sputum, No Dyspnea Gastrointestinal : No ingestions, No Nausea, No Vomiting, No Diarrhea, No Hematochezia, No Melena Genitourinary : No Dysuria, No Urinary Frequency, No Hematuria Musculoskeletal : Positive joint pain to right knee and right hip, No Myalgias Skin : No Skin Lesions, No rash Neuro : No Weakness, No Numbness, No Paresthesias, No Dizziness, No Headache Psych : + Anxiety/agitation/aggression, No Depression, No SI, No thoughts of self injury, No HI, No AVH, Heme/Lymph: No Lymphadenopathy Endocrine : No Polyuria, No Polydipsia Yes all other systems are reviewed and are negative Mental Status Exam Mental Status Exam Narrative: morbidly obese, freely ambulating and then seated in wheelchair in her room. no PMA/PMR and appearing less tired/sedated. dressed casually, appropriately. speech nml loudness, flattened tone, nml amount, nml latency. thoughts linear and logical. mood great. affect constricted, normo-intense, non-labile. no SI/HI/AVH expressed. Diagnostics Vital Signs (24Hr): Vital Signs - 24 hr 06/07/21 08:06 06/07/21 08:19 06/07/21 22:21 Temperature 97.9 F 97.7 F Pulse Rate 77 77 95 Respiratory Rate 16 20 Blood Pressure 129/84 129/84 131/82 Pulse Oximetry 95 96 06/07/21 22:28 Temperature Pulse Rate 86 Respiratory Rate Blood Pressure Pulse Oximetry Body Mass Index 74.0 Labs Results: 06/03/21 11:11 06/03/21 11:11 Imaging Radiology Impressions: ITS Impressions Knee X-Ray 05/30/21 16:35 IMPRESSION: PELVIS: Moderate to severe right hip osteoarthritis. RIGHT KNEE: Moderate medial as well as mild patellofemoral and lateral compartment osteoarthritis, progressed when compared to the prior radiographs. Pelvis X-Ray 05/30/21 16:35 IMPRESSION: PELVIS: Moderate to severe right hip osteoarthritis. RIGHT KNEE: Moderate medial as well as mild patellofemoral and lateral compartment osteoarthritis, progressed when compared to the prior radiographs. Medications Medications Current Medications Generic Name Dose Route Start Last Admin Trade Name Freq PRN Reason Stop Dose Admin Acetaminophen 975 mg 05/31/21 16:50 06/07/21 22:25 Acetaminophen 325 Mg Tablet PO 975 mg TID PRN Administration Pain, Mild Al Hydroxide/Mg Hydroxide 30 ml 06/02/21 21:10 Magnesium Hydrox/Alum Hydrox 30 Ml Oral.Susp PO Q6H PRN Heartburn/Nausea Albuterol Sulfate 2 puff 05/31/21 16:50 Albuterol Sulfate 90 Mcg 8 Gm Inhaler INHALE Q4H PRN Wheezing Benztropine Mesylate 2 mg 05/31/21 21:00 06/07/21 22:27 Benztropine Mesylate 1 Mg Tablet PO 2 mg BID DREAD Administration Carbamazepine 300 mg 06/04/21 21:00 06/07/21 22:27 Carbamazepine Er 100 Mg Tab.Er.12h PO 300 mg BID DREAD Administration Clozapine 100 mg 05/31/21 21:00 06/07/21 22:29 Clozapine 100 Mg Tablet PO 100 mg BEDTIME DREAD Administration Duloxetine HCl 60 mg 06/01/21 09:00 06/07/21 08:05 Duloxetine Hcl 60 Mg Capsule. PO 60 mg DAILY DREAD Administration Ferrous Sulfate 324 mg 06/01/21 09:00 06/07/21 08:07 Ferrous Sulfate 324 Mg Tablet. PO 324 mg DAILY DREAD Administration Fluticasone Propionate 1 spray 06/01/21 09:00 06/07/21 08:09 Fluticasone Propionate Nasal 16 Gm [place] NOSTRIL-B 1 spray DAILY DREAD Administration Furosemide 40 mg 06/01/21 09:00 06/07/21 08:06 Furosemide 40 Mg Tablet PO 40 mg DAILY DREAD Administration Protocol Hydroxyzine HCl 50 mg 06/02/21 21:10 06/06/21 16:45 Hydroxyzine Hcl 25 Mg Tablet PO 50 mg QID PRN Administration Anxiety Ibuprofen 600 mg 06/03/21 22:58 06/08/21 02:43 Ibuprofen 600 Mg Tablet PO 600 mg Q6H PRN Administration Pain, Moderate (Pain Scale 4-6 Levothyroxine Sodium 100 mcg 06/01/21 06:00 06/07/21 08:06 Levothyroxine Sodium 100 Mcg Tablet PO 100 mcg DAILY@0600 DREAD Administration Loratadine 10 mg 06/01/21 09:00 06/07/21 08:06 Loratadine 10 Mg Tablet PO 10 mg DAILY DREAD Administration Magnesium Hydroxide 30 ml 06/02/21 21:10 06/06/21 14:09 Milk Of Magnesia 30 Ml Oral.Susp PO 30 ml DAILY PRN Administration Constipation Multivitamins/Vitamin C 1 tab 06/01/21 09:00 06/07/21 08:07 Multivitamin Tablet PO 1 tab DAILY DREAD Administration Nicotine 21 mg 06/03/21 09:00 06/07/21 08:05 Nicotine 21 Mg Patch.Td24 TRANSDERMA 21 mg DAILY DREAD Administration Nicotine Polacrilex 4 mg 06/03/21 08:39 06/08/21 04:17 Nicotine Polacrilex 2 Mg Gum BUCCAL 4 mg Q2H PRN Administration Nicotine Cravings Non-Formulary Medication 15 mg 06/03/21 12:00 06/07/21 08:09 Meloxicam PO 15 mg DAILY DREAD Administration Olanzapine 10 mg 05/31/21 16:50 06/04/21 19:15 Olanzapine 10 Mg Tablet PO 10 mg BID PRN Administration Agitation Olanzapine 5 mg 06/02/21 21:10 Olanzapine 5 Mg Tablet PO Q4H PRN agitation or psychosis Ondansetron HCl 4 mg 06/03/21 09:46 06/05/21 20:31 Ondansetron Odt 4 Mg Tab.Rapdis TRANSLINGU 4 mg Q6H PRN Administration Nausea Polyethylene Glycol 17 gm 06/03/21 12:01 06/06/21 10:04 Polyethylene Glycol 3350 17 Gm Powd.Pack PO 17 gm DAILY PRN Administration Constipation Spironolactone 50 mg 05/31/21 21:00 06/07/21 22:28 Spironolactone 25 Mg Tablet PO 50 mg BID DREAD Administration Protocol Allergies Allergies Allergy/AdvReac Type Severity Reaction Status Date / Time banana [Banana] Allergy Severe ANAPHYLAXIS Verified 04/11/21 04:26 bee pollen [BEE STINGS] Allergy Unknown SWELLING Verified 04/11/21 04:26 cephalexin [Keflex] Allergy Unknown Unknown Verified 04/11/21 04:26 trazodone [TRAZODONE] Allergy Unknown BODY Verified 04/11/21 04:26 SITFFENS peanut [PEANUT] AdvReac Unknown TACHYCARDIA Verified 04/11/21 04:26 pistachio nut AdvReac Unknown TACHYCARDIA Verified 04/11/21 04:26 From KEFLEX Allergy Unknown UNKNOWN Uncoded 04/11/21 04:26 Assessment & Plan Assessment & Plan (1) Schizoaffective disorder: Status: Acute Code(s): F25.9 - Schizoaffective disorder, unspecified Assessment and Plan: labs and tegretol level checked and reviewed. encourage use of olanzapine 10 mg PRN agitation. requested consult from wound care team to review skin findings. mgmt has been modified since their assessment. increased tegretol from 200 BID to 300 BID as of 06/05. taper and DC topamax (as of 06/07) as redundant. otherwise continue outpt regimen. Greater than 50% of the session was spent on counseling and/or coordination of care Reason for contiued inpatient stay Substantial Risk for: inability to function
[2021-06-07] MEDS: carBAMazepine ER 100 MG TAB.ER.12H 300 MG PO ×2 (08:05→22:27)
[2021-06-07] MEDS: Nicotine 21 MG PATCH.TD24 TRANSDERMA (08:05)
[2021-06-07] MEDS: DULoxetine HCl 60 MG CAPSULE.DR PO (08:05)
[2021-06-07 08:06] VITALS: BP 129/84; PULSE 77
[2021-06-07] MEDS: Furosemide 40 MG TABLET PO (08:06)
[2021-06-07] MEDS: Loratadine 10 MG TABLET PO (08:06)
[2021-06-07] MEDS: Levothyroxine Sodium 100 MCG TABLET PO (08:06)
[2021-06-07] MEDS: Spironolactone 25 MG TABLET 50 MG PO ×2 (08:06→22:28)
[2021-06-07] MEDS: Benztropine Mesylate 1 MG TABLET 2 MG PO ×2 (08:07→22:27)
[2021-06-07] MEDS: Multivitamin TABLET 1 TAB PO (08:07)
[2021-06-07] MEDS: Ferrous Sulfate 324 MG TABLET.DR PO (08:07)
[2021-06-07] MEDS: Fluticasone Propionate Nasal 16 GM SPRAY 1 SPRAY NOSTRIL-B (08:09)
[2021-06-07] MEDS: Nicotine Polacrilex 2 MG GUM 4 MG BUCCAL ×4 (08:17→22:45)
[2021-06-07 08:19] VITALS: BP 129/84; PULSE 77; RESP 16; TEMP 36.6; O2SAT 95
[2021-06-07] MEDS: Acetaminophen 325 MG TABLET 975 MG PO ×2 (13:20→22:25)
[2021-06-07] MEDS: Ibuprofen 600 MG TABLET PO (15:47)
[2021-06-07 22:21] VITALS: BP 131/82; PULSE 95; RESP 20; TEMP 36.5; O2SAT 96
[2021-06-07 22:28] VITALS: PULSE 86
[2021-06-07] MEDS: cloZAPine 100 MG TABLET PO (22:29)
[2021-06-07] MEDS: diphenhydrAMINE HCL 25 MG TABLET 50 MG PO (22:45)
[2021-06-08] MEDS: Ibuprofen 600 MG TABLET PO ×3 (02:43→21:04)
[2021-06-08] MEDS: Nicotine Polacrilex 2 MG GUM 4 MG BUCCAL ×3 (04:17→21:27)
[2021-06-08] MEDS: Furosemide 40 MG TABLET PO (09:40)
[2021-06-08] MEDS: Spironolactone 25 MG TABLET 50 MG PO ×2 (09:40→21:05)
[2021-06-08] MEDS: Ferrous Sulfate 324 MG TABLET.DR PO (09:40)
[2021-06-08] MEDS: Benztropine Mesylate 1 MG TABLET 2 MG PO ×2 (09:40→21:04)
[2021-06-08] MEDS: Loratadine 10 MG TABLET PO (09:40)
[2021-06-08] MEDS: DULoxetine HCl 60 MG CAPSULE.DR PO (09:40)
[2021-06-08] MEDS: carBAMazepine ER 100 MG TAB.ER.12H 300 MG PO ×2 (09:40→21:05)
[2021-06-08] MEDS: Multivitamin TABLET 1 TAB PO (09:41)
[2021-06-08] MEDS: Levothyroxine Sodium 100 MCG TABLET PO (10:07)
[2021-06-08] MEDS: Nicotine 21 MG PATCH.TD24 TRANSDERMA (10:07)
[2021-06-08] MEDS: Fluticasone Propionate Nasal 16 GM SPRAY 1 SPRAY NOSTRIL-B (10:08)
--- NOTE | 2021-06-08 13:21 | P.PNPSI_ITS ---
Subjective Subjective Date of Service: 06/08/21 Reason For Visit: Agitation Interim History: pt seen in milieu mid-morning. calm, cooperative. asking for discharge, informed tomorrow is possible but not today. agreeable to discharge tomorrow. otherwise reports she is feeling reasonably well, no requests or complaints. per staff, delusional, withdrawn. sleeping a lot. isolative to room last night. sleep, anxiety, depression, appetite all reported as good by pt. Mental Status Exam Mental Status Exam Narrative: morbidly obese, seated in wheelchair in day room. mild PMR. dressed casually, appropriately. speech nml loudness, flattened tone, decr amount, nml latency. thoughts linear and logical. affect constricted, hypo-intense, non- labile. no SI/HI/AVH expressed. Diagnostics Vital Signs (24Hr): Vital Signs - 24 hr 06/07/21 22:21 06/07/21 22:28 Temperature 97.7 F Pulse Rate 95 86 Respiratory Rate 20 Blood Pressure 131/82 Pulse Oximetry 96 Body Mass Index 74.0 Labs Results: 06/03/21 11:11 06/03/21 11:11 Imaging Radiology Impressions: ITS Impressions Knee X-Ray 05/30/21 16:35 IMPRESSION: PELVIS: Moderate to severe right hip osteoarthritis. RIGHT KNEE: Moderate medial as well as mild patellofemoral and lateral compartment osteoarthritis, progressed when compared to the prior radiographs. Pelvis X-Ray 05/30/21 16:35 IMPRESSION: PELVIS: Moderate to severe right hip osteoarthritis. RIGHT KNEE: Moderate medial as well as mild patellofemoral and lateral compartment osteoarthritis, progressed when compared to the prior radiographs. Medications Medications Current Medications Generic Name Dose Route Start Last Admin Trade Name Freq PRN Reason Stop Dose Admin Acetaminophen 975 mg 05/31/21 16:50 06/07/21 22:25 Acetaminophen 325 Mg Tablet PO 975 mg TID PRN Administration Pain, Mild Al Hydroxide/Mg Hydroxide 30 ml 06/02/21 21:10 Magnesium Hydrox/Alum Hydrox 30 Ml Oral.Susp PO Q6H PRN Heartburn/Nausea Albuterol Sulfate 2 puff 05/31/21 16:50 Albuterol Sulfate 90 Mcg 8 Gm Inhaler INHALE Q4H PRN Wheezing Benztropine Mesylate 2 mg 05/31/21 21:00 06/08/21 09:40 Benztropine Mesylate 1 Mg Tablet PO 2 mg BID DREAD Administration Carbamazepine 300 mg 06/04/21 21:00 06/08/21 09:40 Carbamazepine Er 100 Mg Tab.Er.12h PO 300 mg BID DREAD Administration Clozapine 100 mg 05/31/21 21:00 06/07/21 22:29 Clozapine 100 Mg Tablet PO 100 mg BEDTIME DREAD Administration Duloxetine HCl 60 mg 06/01/21 09:00 06/08/21 09:40 Duloxetine Hcl 60 Mg Capsule. PO 60 mg DAILY DREAD Administration Ferrous Sulfate 324 mg 06/01/21 09:00 06/08/21 09:40 Ferrous Sulfate 324 Mg Tablet. PO 324 mg DAILY DREAD Administration Fluticasone Propionate 1 spray 06/01/21 09:00 06/08/21 10:08 Fluticasone Propionate Nasal 16 Gm Thurman NOSTRIL-B 1 spray DAILY DREAD Administration Furosemide 40 mg 06/01/21 09:00 06/08/21 09:40 Furosemide 40 Mg Tablet PO 40 mg DAILY DREAD Administration Protocol Hydroxyzine HCl 50 mg 06/02/21 21:10 06/06/21 16:45 Hydroxyzine Hcl 25 Mg Tablet PO 50 mg QID PRN Administration Anxiety Ibuprofen 600 mg 06/03/21 22:58 06/08/21 02:43 Ibuprofen 600 Mg Tablet PO 600 mg Q6H PRN Administration Pain, Moderate (Pain Scale 4-6 Levothyroxine Sodium 100 mcg 06/01/21 06:00 06/08/21 10:07 Levothyroxine Sodium 100 Mcg Tablet PO 100 mcg DAILY@0600 DREAD Administration Loratadine 10 mg 06/01/21 09:00 06/08/21 09:40 Loratadine 10 Mg Tablet PO 10 mg DAILY DREAD Administration Magnesium Hydroxide 30 ml 06/02/21 21:10 06/06/21 14:09 Milk Of Magnesia 30 Ml Oral.Susp PO 30 ml DAILY PRN Administration Constipation Multivitamins/Vitamin C 1 tab 06/01/21 09:00 06/08/21 09:41 Multivitamin Tablet PO 1 tab DAILY DREAD Administration Nicotine 21 mg 06/03/21 09:00 06/08/21 10:07 Nicotine 21 Mg Patch.Td24 TRANSDERMA 21 mg DAILY DREAD Administration Nicotine Polacrilex 4 mg 06/03/21 08:39 06/08/21 10:02 Nicotine Polacrilex 2 Mg Gum BUCCAL 4 mg Q2H PRN Administration Nicotine Cravings Non-Formulary Medication 15 mg 06/03/21 12:00 06/08/21 10:08 Meloxicam PO 15 mg DAILY DREAD Administration Olanzapine 10 mg 05/31/21 16:50 06/04/21 19:15 Olanzapine 10 Mg Tablet PO 10 mg BID PRN Administration Agitation Olanzapine 5 mg 06/02/21 21:10 Olanzapine 5 Mg Tablet PO Q4H PRN agitation or psychosis Ondansetron HCl 4 mg 06/03/21 09:46 06/05/21 20:31 Ondansetron Odt 4 Mg Tab.Rapdis TRANSLINGU 4 mg Q6H PRN Administration Nausea Polyethylene Glycol 17 gm 06/03/21 12:01 06/06/21 10:04 Polyethylene Glycol 3350 17 Gm Powd.Pack PO 17 gm DAILY PRN Administration Constipation Spironolactone 50 mg 05/31/21 21:00 06/08/21 09:40 Spironolactone 25 Mg Tablet PO 50 mg BID DREAD Administration Protocol Allergies Allergies Allergy/AdvReac Type Severity Reaction Status Date / Time banana [Banana] Allergy Severe ANAPHYLAXIS Verified 04/11/21 04:26 bee pollen [BEE STINGS] Allergy Unknown SWELLING Verified 04/11/21 04:26 cephalexin [Keflex] Allergy Unknown Unknown Verified 04/11/21 04:26 trazodone [TRAZODONE] Allergy Unknown BODY Verified 04/11/21 04:26 SITFFENS peanut [PEANUT] AdvReac Unknown TACHYCARDIA Verified 04/11/21 04:26 pistachio nut AdvReac Unknown TACHYCARDIA Verified 04/11/21 04:26 From KEFLEX Allergy Unknown UNKNOWN Uncoded 04/11/21 04:26 Assessment & Plan Assessment & Plan (1) Schizoaffective disorder: Status: Acute Code(s): F25.9 - Schizoaffective disorder, unspecified Assessment and Plan: labs and tegretol level checked and reviewed. encourage use of olanzapine 10 mg PRN agitation. requested consult from wound care team to review skin findings. mgmt has been modified since their assessment. increased tegretol from 200 BID to 300 BID as of 06/05. tapered and DCed topamax (as of 06/07) as redundant. otherwise continued outpt regimen. check labs 06/09 prior to discharge. Greater than 50% of the session was spent on counseling and/or coordination of care Reason for contiued inpatient stay Substantial Risk for: harm to others, inability to function and rapid dec ompensation
[2021-06-08 18:00] VITALS: BP 118/79; PULSE 88; RESP 18; TEMP 36.8; O2SAT 93
[2021-06-08 21:05] VITALS: BP 118/79; PULSE 88
[2021-06-08] MEDS: cloZAPine 100 MG TABLET PO (21:05)
[2021-06-09 06:00] VITALS: BP 127/92; PULSE 96; RESP 18; TEMP 36.4; O2SAT 96
[2021-06-09] MEDS: Fluticasone Propionate Nasal 16 GM SPRAY 1 SPRAY NOSTRIL-B (08:19)
[2021-06-09] MEDS: carBAMazepine ER 100 MG TAB.ER.12H 300 MG PO (08:20)
[2021-06-09] MEDS: Benztropine Mesylate 1 MG TABLET 2 MG PO (08:20)
[2021-06-09] MEDS: Loratadine 10 MG TABLET PO (08:20)
[2021-06-09] MEDS: Ferrous Sulfate 324 MG TABLET.DR PO (08:21)
[2021-06-09] MEDS: DULoxetine HCl 60 MG CAPSULE.DR PO (08:21)
[2021-06-09] MEDS: Multivitamin TABLET 1 TAB PO (08:21)
[2021-06-09 08:22] VITALS: BP 127/92; PULSE 96
[2021-06-09] MEDS: Spironolactone 25 MG TABLET 50 MG PO (08:22)
[2021-06-09] MEDS: Furosemide 40 MG TABLET PO (08:22)
[2021-06-09] MEDS: Levothyroxine Sodium 100 MCG TABLET PO (08:23)
[2021-06-09] MEDS: Nicotine Polacrilex 2 MG GUM 4 MG BUCCAL (08:31)
[2021-06-09 09:04] LABS: MANUAL DIFF FLAG NO
[2021-06-09 09:09] LABS: Basophils Percent Auto 0.4 % (0-2); Eosinophils Absolute Auto 0.2 X10*3/uL (0.0-0.4); Eosinophils Percent Auto 2.5 % (0-4); Hematocrit 40.9 % (37-47); Hemoglobin 13.8 g/dl (12.0-16.0); Imm Gran Abs Auto 0.05 X10*3/uL (0.00-0.03); Imm Gran Pct Auto 0.7 % (0.0-0.4); Lymphocytes Absolute Auto 1.6 X10*3/uL (1.2-4.9); Lymphocytes Percent Auto 21.2 % (20-40); Mean Corpuscular HGB Conc 33.7 g/dl (31.0-35.0); Mean Corpuscular Hemoglobin 31.7 pg (27.0-33.0); Mean Platelet Volume 9.1 fL (9.4-12.3); Monocytes Absolute Auto 0.7 X10*3/uL (0.1-1.2); Monocytes Percent Auto 9.5 % (2-11); Neutrophils Absolute Auto 4.8 X10*3/uL (2.0-8.3); Neutrophils Percent Auto 65.7 % (45-73); Platelet Count 347 X10*3/uL (160-400); Red Blood Count 4.35 X10*6/uL (4.20-5.50); Red Cell Distribution Width 13.7 % (11.0-16.0); White Blood Count 7.3 X10*3/uL (4.8-10.8)
[2021-06-09 09:33] LABS: Albumin Level 3.7 g/dL (3.5-5.0); Alkaline Phosphatase 82 U/L (39-117); Anion Gap 15 (12-20); Aspartate Amino Transferase 19 U/L (5-31); Bilirubin Direct < 0.2 mg/dL (0.0-0.5); Blood Urea Nitrogen 13 mg/dL (9-16); Calcium 9.2 mg/dL (8.4-10.2); Carbon Dioxide 25 mmol/L (22-29); Chloride 96 mmol/L (96-108); Creatinine Clr Calc Pharmacy 169.3; Estimated Glomerular Filt Rate > 60; Glucose Random 94 mg/dL (60-115); Potassium 5.1 mmol/L (3.3-5.1); Sodium 131 mmol/L (135-145); Total Protein 6.3 g/dL (6.5-8.0)
[2021-06-09 09:46] LABS: Carbamazepine Tegretol 6.7 mcg/mL (5.0-12.0)
[2021-06-09 09:50] LABS: Alanine Aminotransferase 32 U/L (0-31); Bilirubin Total 0.2 mg/dL (0.0-1.0)
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
[2021-06-09] MEDS: Ketotifen Fumarate 0.025% Oph 5 ML DRPBTL 1 DROP EYE-BOTH (11:40)
[2021-06-09] MEDS: Acetaminophen 325 MG TABLET 975 MG PO (11:41)
--- NOTE | 2021-06-09 12:40 | PC.NURSE ---
Gina is alert, fully oriented, pleasant and cooperative with discharge process. She denies ideation, plan or intent to harm herself or others. Gina has been in good behavioral control, denies auditory and visual hallucinations and denies anxiety. Gina has been compliant with prescribed medications. Appetite is good, sleep is good and her ability to focus is good. Gina has been appropriately using wheelchair at times, walker or cane at others depending on her pain level and sense of steadiness on her feet. In addition, Gina has been attending to her personal hygiene. Following education, she verbalizes understanding of her discharge medications and discharge plan and denies questions.
[2021-06-12 23:21] LABS: Clozapine (Clozaril) 73 mcg/L; Norclozapine 36 mcg/L (25-400)
== END 2021-06-09 15:00 | disposition home or self-care (01) | DRG 885 ==
LOC: HO.ED 06-01 15:17 → HO.PADLT16 06-02 18:39
PROVIDERS: Physician Assistant Medical; Admitting Provider Psychiatry & Neurology Psychiatry; Emergency Provider Emergency Medicine; Visit Provider Psychiatry & Neurology Psychiatry
DX: F25.9 Schizoaffective disorder, unspecified (principal); Z68.45 Body mass index [BMI] 70 or greater, adult; E11.9 Type 2 diabetes mellitus without complications; K59.00 Constipation, unspecified; E66.01 Morbid (severe) obesity due to excess calories; F17.210 Nicotine dependence, cigarettes, uncomplicated; E03.9 Hypothyroidism, unspecified; Z20.822 Contact with and (suspected) exposure to COVID-19; Z71.6 Tobacco abuse counseling; Z79.1 Long term (current) use of non-steroidal anti-inflammatories (NSAID); Z79.51 Long term (current) use of inhaled steroids; Z79.890 Hormone replacement therapy; Z79.899 Other long term (current) drug therapy
CPT/HCPCS: 36415; 72170; 73560; 80048; 80053; 80076; 80156; 80159; 80307; 81001; 81003; 82077; 83690; 83735; 83880; 84702; 85025; 87635; 93005; 97161; 99285; Q0163

== ENCOUNTER 2021-06-15 22:36 | Inpatient (IN) | payer OTHER, SELFPAY ==
[2021-06-15 23:05] VITALS: BP 116/76; PULSE 105; RESP 18; O2SAT 96
--- NOTE | 2021-06-15 23:50 | PC.NURSE ---
during intake with dr núñez at bedside pt states she did herion. after this conversation pt admits to feeling s1. during the transfer to the crisis pod pt made a more clear verbal statement that she is feeling like she wants to harm herself. pt talks with having hallucinations. pt states multiple complaints of back, hip pain, and not liking her usp. pt having dillusional thoughts. pt ambulated with security to the pod. pt ambulated with steady gait, but was insisting on a wheelchair that was not given to assess pt ambulation skills.
[2021-06-16] VITALS (7 sets, daily range): BP systolic 105–114; BP diastolic 57–70; PULSE 86–96; RESP 16–18; TEMP 36.5–36.6; O2SAT 93–95
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
--- NOTE | 2021-06-16 01:07 | ED.GENADULT ---
HPI - General Adult General Chief complaint: Fall Stated complaint: psychiatric, Right sided face pain Time Seen by Provider: 06/15/21 23:28 Source: patient and EMS Mode of arrival: EMS Limitations: no limitations History of Present Illness HPI narrative: Patient history of substance abuse schizoaffective disorder recently discharged from psych admission came from senior living for unwitnessed fall patient was sitting at the time of EMS arrived complaining of pain in the right hip but able to move here right leg use lot of drugs today denied use of PCP after coming to the ER patient asking for psych help wanted to get admitted Related Data Home Medications Medication Instructions Recorded Confirmed paliperidone palmitate 234 mg/1.5 234 mg IM Q28D 04/11/21 05/31/21 mL intramuscular syringe (Invega SustSalesPredict) spironolactone 50 mg tablet 50 mg PO BID 04/11/21 05/31/21 benztropine 1 mg tablet 1 tab PO BID 06/16/21 06/16/21 carbamazepine 100 mg 3 tab PO BID 06/16/21 06/16/21 tablet,extended release,12 hr clozapine 100 mg tablet 1 mg PO BEDTIME 06/16/21 06/16/21 divalproex 500 mg tablet,delayed 1 tab PO BID 06/16/21 06/16/21 release duloxetine 60 mg capsule,delayed 1 cap PO DAILY 06/16/21 06/16/21 release ferrous sulfate 325 mg (65 mg 1 tab PO DAILY 06/16/21 06/16/21 iron) tablet,delayed release furosemide 40 mg tablet 1 tab PO DAILY 06/16/21 06/16/21 hydrochlorothiazide 25 mg tablet 0.5 tab PO QAM 06/16/21 06/16/21 levothyroxine 100 mcg tablet 1 tab PO DAILY 06/16/21 06/16/21 lisinopril 10 mg tablet 1 tab PO DAILY 06/16/21 06/16/21 loratadine 10 mg tablet 1 tab PO DAILY 06/16/21 06/16/21 melatonin 1 mg tablet 6 mg PO BEDTIME 06/16/21 06/16/21 meloxicam 15 mg tablet 1 tab PO DAILY 06/16/21 06/16/21 nicotine (polacrilex) 2 mg gum 2 mg PO Q2-3H PRN 06/16/21 06/16/21 olanzapine 10 mg tablet 10 mg PO BEDTIME 06/16/21 06/16/21 paliperidone palmitate 234 mg/1.5 234 mg IM Q4W 06/16/21 06/16/21 mL intramuscular syringe (Invega Sustenna) prazosin 5 mg capsule 1 cap PO BEDTIME 06/16/21 06/16/21 ropinirole 0.5 mg tablet 1 tab PO TID 06/16/21 06/16/21 spironolactone 50 mg tablet 1 tab PO BID 06/16/21 06/16/21 Allergies Allergy/AdvReac Type Severity Reaction Status Date / Time banana [Banana] Allergy Severe ANAPHYLAXIS Verified 04/11/21 04:26 bee pollen [BEE STINGS] Allergy Unknown SWELLING Verified 04/11/21 04:26 cephalexin [Keflex] Allergy Unknown Unknown Verified 04/11/21 04:26 trazodone [TRAZODONE] Allergy Unknown BODY Verified 04/11/21 04:26 SITFFENS peanut [PEANUT] AdvReac Unknown TACHYCARDIA Verified 04/11/21 04:26 pistachio nut AdvReac Unknown TACHYCARDIA Verified 04/11/21 04:26 From KEFLEX Allergy Unknown UNKNOWN Uncoded 04/11/21 04:26 Review of Systems Review of Systems: Constitutional : No Fever, No Chills ENT/Mouth : No Ear Pain, No Nasal Congestion, No sore throat Eyes: No Eye Pain, No Swelling, No Redness Cardiovascular : No Chest Pain, No SOB Respiratory : No Cough, No Sputum, No Dyspnea Gastrointestinal : No Nausea, No Vomiting, No Diarrhea, No Hematochezia, No Melena Genitourinary : No Dysuria, No Urinary Frequency, No Hematuria Musculoskeletal : No Myalgias Skin : No Skin Lesions, No rash Neuro : No Weakness, No Numbness, No Paresthesias, No Dizziness, No Headache Psych : positive Anxiety, neg Depression, neg SI/HI, auditory hallucination+ Heme/Lymph: No Lymphadenopathy Endocrine : No Polyuria, No Polydipsia PMFSH Past Medical History Medical History Asthma Bipolar disorder Chronic post-traumatic stress disorder (PTSD) Chronic post-traumatic stress disorder (PTSD) Class 3 obesity Diabetes HTN (hypertension) Hypothyroidism PCOS (polycystic ovarian syndrome) Polysubstance abuse Psychosis Schizoaffective disorder Substance abuse Suicidal ideation Social History Social History Household Members: Other Household Members Other:: senior living Housing: Other Housing Other:: senior living Do you presently have visiting nurse or other home services: No (I would like one) Unable to assess alcohol history related to: Refusing to respond Patient Tobacco Use Status: Current everyday Tobacco user Tobacco use type: Cigarette Cigarette Packs Per Day: 1 Cigarettes Per Day: 20.0 e-Cigarette/Vaping Use: Currently Using Second Hand Smoke Exposure: No Substance Use Type: Marijuana Advance Directives: No Patient : No service: No Sexual orientation: Don't Know Physical Exam Vital Signs: Vital Signs: Last Vital Signs Pulse 105 H 06/15/21 23:05 Resp 18 06/15/21 23:05 BP 116/76 06/15/21 23:05 Pulse Ox 96 06/15/21 23:05 Body Mass Index 0.0 Appearance: Alert. Oriented X3. No acute distress. No signs of injury Eyes: PERRLA, No Nystagmus ENT: Pharynx normal. Oral Mucosa moist Neck: Normal inspection. Neck supple. CVS: Normal heart rate and rhythm. Pulses normal. Respiratory: No respiratory distress. Equal air entry bilateral, no wheezing/rales/rhonchi Abdomen: Soft and nontender. Bowel sounds are present, no mass palpable, no CVA tenderness Skin: Skin warm and dry. Normal skin color. Normal skin turgor. Extremities: No lower extremity edema. No calf tenderness good range of hip movements no signs of injury psych: Denies suicidal ideation denies depression , auditory hallucinations++ Neuro: Oriented X 3. No motor deficit. No sensory deficit.No cerebellar signs , cranial nerves II-XII intact Medical Decision Making MDM Narrative Medical decision making narrative: Patient with multiple complaints of frequent admission to the psych floor, claims that she fell but no significant injury noticed after arrival in the ED asking for psych admission for nonspecific reasons denied use of PCP will get psych consult for schizoaffective disorder Discharge Plan Discharge Clinical Impression: Schizoaffective disorder Qualifiers: Schizoaffective disorder type: bipolar Qualified Code(s): F25.0 - Schizoaffective disorder, bipolar type Prescriptions: No Action spironolactone 50 mg tablet 50 mg PO BID RF: 0 Invega Sustenna 234 mg/1.5 mL syringe 234 mg IM Q28D RF: 0 furosemide 40 mg tablet 1 tab PO DAILY RF: 0 clozapine 100 mg tablet 1 mg PO BEDTIME RF: 0 meloxicam 15 mg tablet 1 tab PO DAILY RF: 0 divalproex 500 mg tablet,delayed release (DR/EC) 1 tab PO BID RF: 0 prazosin 5 mg capsule 1 cap PO BEDTIME RF: 0 lisinopril 10 mg tablet 1 tab PO DAILY RF: 0 benztropine 1 mg tablet 1 tab PO BID RF: 0 hydrochlorothiazide 25 mg tablet 0.5 tab PO QAM RF: 0 ferrous sulfate 325 mg (65 mg iron) tablet,delayed release (DR/EC) 1 tab PO DAILY RF: 0 loratadine 10 mg tablet 1 tab PO DAILY RF: 0 spironolactone 50 mg tablet 1 tab PO BID RF: 0 melatonin 1 mg tablet 6 mg PO BEDTIME RF: 0 duloxetine 60 mg capsule,delayed release(DR/EC) 1 cap PO DAILY RF: 0 carbamazepine 100 mg tablet extended release 12 hr 3 tab PO BID RF: 0 Invega Sustenna 234 mg/1.5 mL syringe 234 mg IM Q4W RF: 0 nicotine (polacrilex) 2 mg gum 2 mg PO Q2-3H PRN (Reason: Nicotine Cravings) RF: 0 olanzapine 10 mg tablet 10 mg PO BEDTIME RF: 0 levothyroxine 100 mcg tablet 1 tab PO DAILY RF: 0 ropinirole 0.5 mg tablet 1 tab PO TID RF: 0
[2021-06-16] MEDS: Levothyroxine Sodium 100 MCG TABLET PO (06:07)
--- NOTE | 2021-06-16 06:08 | PC.NURSE ---
Patient slept through the night, woke at 0545, needed assistance to get her out of bed, gait unstaedy, used bathroom/refused to provide urine sample, patient demanded to have underwear, when explained her belongings are in [facility] patient got agitated hit alarm button twice, security explained the [facility] policy, took her 0630medication, currently sitting in chair in hallway, patient is delusional calling staff member arlenist, refused VS assessment, will continue to monitor.
[2021-06-16] MEDS: Furosemide 40 MG TABLET PO (08:16)
[2021-06-16] MEDS: Benztropine Mesylate 1 MG TABLET PO ×3 (08:17→20:51)
[2021-06-16] MEDS: Spironolactone 25 MG TABLET 50 MG PO ×2 (08:17→10:06)
[2021-06-16] MEDS: Loratadine 10 MG TABLET PO (08:17)
[2021-06-16] MEDS: Divalproex Sodium 500 MG TABLET.DR PO ×2 (08:17→10:07)
[2021-06-16] MEDS: Ferrous Sulfate 324 MG TABLET.DR PO (08:17)
[2021-06-16] MEDS: hydroCHLOROthiazide 12.5 MG TABLET PO ×2 (08:18→10:06)
[2021-06-16] MEDS: DULoxetine HCl 60 MG CAPSULE.DR PO (08:18)
--- NOTE | 2021-06-16 08:26 | PC.NURSE ---
TECH ATTEMPTED TO DRAW CBC PT REFUSED AT THIS TIME. PHARMACY CALLED FOR MISSING MEDICATIONS.
[2021-06-16] MEDS: rOPINIRole HCL 0.5 MG TABLET PO ×3 (10:04→20:47)
[2021-06-16] MEDS: carBAMazepine ER 100 MG TAB.ER.12H 300 MG PO ×2 (10:05→20:51)
--- NOTE | 2021-06-16 10:15 | PC.NURSE ---
PT IS VERY UNCOOPERATIVE, VERBALLY ABUSIVE TO STAFF, AND THROWS THINGS ON THE FLOOR INTENTIONALLY, FOR EXAMPLE MED CUPS DRINKING CUPS FOOD TRAYS
--- NOTE | 2021-06-16 13:11 | PC.NURSE ---
[facility] HERE TO SEE PATIENT
--- NOTE | 2021-06-16 13:29 | PC.NURSE ---
PT DURRING EVALUATION WITH [facility] PT VERY SEXULIZED, EXPOSING HERSELF, INTENTIONALLY VOIDING IN BED AND ON CHAIR
[2021-06-16 19:54] LABS: COVID-19 Test Negative (Negative); IDNOW Serial# 9DD0AD1C
[2021-06-16] MEDS: Prazosin HCL 5 MG CAPSULE PO (20:47)
[2021-06-16] MEDS: OLANZapine 10 MG TABLET PO (20:48)
[2021-06-16] MEDS: Melatonin 3 MG TABLET 6 MG PO (20:48)
[2021-06-16] MEDS: cloZAPine 100 MG TABLET PO (20:55)
[2021-06-16] MEDS: Nicotine Polacrilex 2 MG GUM BUCCAL (22:15)
[2021-06-16 22:49] LABS: Amphetamine Screen Urine Not Detected (Not Detect); Barbiturates, Urine Not Detected (Not Detect); Benzodiazepines Screen Urine Not Detected (Not Detect); Cannabinoid Screen Urine Not Detected (Not Detect); Cocaine Screen Urine Not Detected (Not Detect); Opiate Screen Urine Not Detected (Not Detect); Phencyclidine Screen Urine Not Detected (Not Detect)
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
[2021-06-17 06:00] VITALS: BP 129/70; PULSE 101; RESP 20; TEMP 36.7; O2SAT 93
[2021-06-17] MEDS: Levothyroxine Sodium 100 MCG TABLET PO (06:36)
[2021-06-17] MEDS: Acetaminophen 325 MG TABLET 650 MG PO ×2 (06:36→20:57)
[2021-06-17] MEDS: Nicotine Polacrilex 2 MG GUM BUCCAL (06:37)
[2021-06-17 07:11] LABS: MANUAL DIFF FLAG NO
[2021-06-17 07:16] LABS: Basophils Percent Auto 0.4 % (0-2); Eosinophils Absolute Auto 0.3 X10*3/uL (0.0-0.4); Eosinophils Percent Auto 4.5 % (0-4); Hematocrit 40.6 % (37-47); Hemoglobin 13.7 g/dl (12.0-16.0); Imm Gran Abs Auto 0.04 X10*3/uL (0.00-0.03); Imm Gran Pct Auto 0.6 % (0.0-0.4); Lymphocytes Absolute Auto 1.8 X10*3/uL (1.2-4.9); Lymphocytes Percent Auto 25.3 % (20-40); Mean Corpuscular HGB Conc 33.7 g/dl (31.0-35.0); Mean Corpuscular Hemoglobin 32.2 pg (27.0-33.0); Mean Corpuscular Volume 95.3 fL (80-98); Mean Platelet Volume 8.9 fL (9.4-12.3); Monocytes Absolute Auto 0.6 X10*3/uL (0.1-1.2); Monocytes Percent Auto 8.9 % (2-11); Neutrophils Absolute Auto 4.3 X10*3/uL (2.0-8.3); Neutrophils Percent Auto 60.3 % (45-73); Platelet Count 326 X10*3/uL (160-400); Red Blood Count 4.26 X10*6/uL (4.20-5.50); Red Cell Distribution Width 14.4 % (11.0-16.0); White Blood Count 7.2 X10*3/uL (4.8-10.8)
[2021-06-17 08:33] LABS: Carbamazepine Tegretol 5.8 mcg/mL (5.0-12.0); Valproate 34.1 mcg/mL (50.0-100.0)
[2021-06-17] MEDS: Nicotine 21 MG PATCH.TD24 TRANSDERMA (09:59)
[2021-06-17] MEDS: Benztropine Mesylate 1 MG TABLET 2 MG PO ×2 (10:00→20:59)
[2021-06-17 10:01] VITALS: BP 129/70; PULSE 101
[2021-06-17] MEDS: Spironolactone 25 MG TABLET 50 MG PO ×2 (10:01→20:56)
[2021-06-17] MEDS: carBAMazepine ER 200 MG TAB.ER.12H PO (10:02)
[2021-06-17] MEDS: Ferrous Sulfate 324 MG TABLET.DR PO (11:17)
[2021-06-17] MEDS: DULoxetine HCl 60 MG CAPSULE.DR PO (11:17)
[2021-06-17] MEDS: Furosemide 40 MG TABLET PO (11:18)
[2021-06-17] MEDS: Loratadine 10 MG TABLET PO (11:18)
[2021-06-17] MEDS: Nicotine Polacrilex 2 MG GUM 4 MG BUCCAL ×3 (11:33→20:58)
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
--- NOTE | 2021-06-17 14:48 | MHC.CLN ---
HEIGHT AND WEIGHT PER PRIOR ADMISSION, HEIGHT=5'2 . BMI=74, EXTREME OBESITY.
[2021-06-17 16:43] LABS: Alanine Aminotransferase 18 U/L (0-31); Albumin Level 3.6 g/dL (3.5-5.0); Alkaline Phosphatase 81 U/L (39-117); Anion Gap 14 (12-20); Aspartate Amino Transferase 12 U/L (5-31); Bilirubin Total 0.2 mg/dL (0.0-1.0); Blood Urea Nitrogen 14 mg/dL (9-16); Carbon Dioxide 28 mmol/L (22-29); Chloride 100 mmol/L (96-108); Estimated Glomerular Filt Rate > 60; Glucose Random 99 mg/dL (60-115); Potassium 4.8 mmol/L (3.3-5.1); Sodium 137 mmol/L (135-145); Total Protein 5.9 g/dL (6.5-8.0)
[2021-06-17 20:50] VITALS: BP 159/98; PULSE 86; TEMP 36.6; O2SAT 94
[2021-06-17 20:56] VITALS: BP 159/98; PULSE 86
[2021-06-17] MEDS: carBAMazepine ER 100 MG TAB.ER.12H 300 MG PO (20:57)
[2021-06-17] MEDS: rOPINIRole HCL 0.5 MG TABLET 1.5 MG PO (20:57)
[2021-06-17] MEDS: cloZAPine 100 MG TABLET PO (20:58)
[2021-06-17] MEDS: Melatonin 3 MG TABLET 6 MG PO (20:58)
[2021-06-17 23:35] LABS: UPreg QC Valid YES; Urine Pregnancy NEGATIVE (NEGATIVE)
[2021-06-18 06:00] VITALS: BP 117/65; PULSE 95; RESP 18; TEMP 36.9; O2SAT 93
[2021-06-18] MEDS: Levothyroxine Sodium 100 MCG TABLET PO (06:23)
[2021-06-18] MEDS: Nicotine Polacrilex 2 MG GUM 4 MG BUCCAL ×2 (06:37→18:11)
[2021-06-18 07:08] LABS: Alanine Aminotransferase 20 U/L (0-31); Albumin Level 3.6 g/dL (3.5-5.0); Alkaline Phosphatase 76 U/L (39-117); Anion Gap 14 (12-20); Aspartate Amino Transferase 15 U/L (5-31); Bilirubin Direct < 0.2 mg/dL (0.0-0.5); Bilirubin Total < 0.2 mg/dL (0.0-1.0); Blood Urea Nitrogen 14 mg/dL (9-16); Calcium 8.8 mg/dL (8.4-10.2); Carbon Dioxide 27 mmol/L (22-29); Chloride 96 mmol/L (96-108); Cholesterol 192 mg/dL; Estimated Glomerular Filt Rate > 60; Glucose Fasting 88 mg/dL (60-99); HDL Cholesterol 74 mg/dL; LDL Cholesterol Calculated 97 mg/dl; Potassium 4.7 mmol/L (3.3-5.1); Sodium 132 mmol/L (135-145); Total Protein 6.3 g/dL (6.5-8.0); Triglycerides 108 mg/dL
[2021-06-18 07:25] LABS: Thyroid Stimulating Hormone 1.69 uIU/mL (0.32-4.0)
[2021-06-18 07:49] LABS: Estimated Average Glucose 108 mg/dL; Hemoglobin A1c % 5.4 %
[2021-06-18 10:11] LABS: Vitamin B12 395 pg/mL (200-900)
[2021-06-18] MEDS: Loratadine 10 MG TABLET PO (10:29)
[2021-06-18] MEDS: Nicotine 21 MG PATCH.TD24 TRANSDERMA (10:29)
[2021-06-18 10:30] VITALS: BP 117/65; PULSE 95
[2021-06-18] MEDS: DULoxetine HCl 60 MG CAPSULE.DR PO (10:30)
[2021-06-18] MEDS: Ferrous Sulfate 324 MG TABLET.DR PO (10:30)
[2021-06-18] MEDS: Furosemide 40 MG TABLET PO (10:30)
[2021-06-18] MEDS: Benztropine Mesylate 1 MG TABLET 2 MG PO ×2 (10:30→20:30)
[2021-06-18] MEDS: Spironolactone 25 MG TABLET 50 MG PO ×2 (10:30→20:32)
[2021-06-18] MEDS: carBAMazepine ER 100 MG TAB.ER.12H 300 MG PO ×2 (10:32→20:31)
[2021-06-18] MEDS: Acetaminophen 325 MG TABLET 650 MG PO (14:12)
[2021-06-18] MEDS: Magnesium Hydrox/Alum Hydrox 30 ML ORAL.SUSP PO (14:13)
[2021-06-18] MEDS: OLANZapine 10 MG TABLET PO (14:14)
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
[2021-06-18 18:00] VITALS: BP 123/88; PULSE 95; RESP 18; TEMP 36.9; O2SAT 96
--- NOTE | 2021-06-18 18:22 | PC.NURSE ---
Patient submitted 3 day note today. States she needs to figure out housing.
[2021-06-18] MEDS: Melatonin 3 MG TABLET 6 MG PO (20:29)
[2021-06-18] MEDS: rOPINIRole HCL 0.5 MG TABLET 1.5 MG PO (20:30)
[2021-06-18] MEDS: cloZAPine 25 MG TABLET 150 MG PO (20:31)
[2021-06-18 20:32] VITALS: BP 123/88; PULSE 95
[2021-06-19] MEDS: Acetaminophen 325 MG TABLET 650 MG PO (02:37)
[2021-06-19 06:00] VITALS: BP 129/73; PULSE 88; RESP 18; TEMP 36.9; O2SAT 96
[2021-06-19] MEDS: Levothyroxine Sodium 100 MCG TABLET PO (06:56)
[2021-06-19] MEDS: Nicotine 21 MG PATCH.TD24 TRANSDERMA (08:40)
[2021-06-19 08:41] VITALS: BP 129/73; PULSE 88
[2021-06-19] MEDS: Ferrous Sulfate 324 MG TABLET.DR PO (08:41)
[2021-06-19] MEDS: Benztropine Mesylate 1 MG TABLET 2 MG PO ×2 (08:41→21:15)
[2021-06-19] MEDS: Spironolactone 25 MG TABLET 50 MG PO ×2 (08:41→21:15)
[2021-06-19] MEDS: carBAMazepine ER 100 MG TAB.ER.12H 300 MG PO (08:42)
[2021-06-19] MEDS: Loratadine 10 MG TABLET PO (08:42)
[2021-06-19] MEDS: DULoxetine HCl 60 MG CAPSULE.DR PO (08:42)
[2021-06-19] MEDS: Furosemide 40 MG TABLET PO (08:42)
[2021-06-19] MEDS: Nicotine Polacrilex 2 MG GUM 4 MG BUCCAL ×3 (11:13→18:22)
--- NOTE | 2021-06-19 11:29 | PC.NURSE ---
Gina's nicotine patch administered yesterday 06/18/21 was removed yesterday 06/18 at 1600 due to her threat to eat it. [facility] does not let me document that removal until today now. Today's nicotine patch was administered as documented in the MAR. New patch was not administered prior to the removal of yesterday's patch.
--- NOTE | 2021-06-19 15:07 | P.PNPSI_ITS ---
Subjective Subjective Date of Service: 06/19/21 Reason For Visit: Schizoaffective DO, bipolar type Subjective Notes: [facility] Warning, Conditional Voluntary and 3 Day Healthcare Proxy: No Guardianship: No Medical Problems Affecting Mental Status: No Interim History: Patient seen and discussed with team. Patient evaluated this morning and upon interview she reports she feels sick, nauseous, dizzy. She reports I want off the meds and does not want to be on clozapine or tegretol anymore due to weight gain and I can't function well, my nervous system isn't working well, i'm sedated. She attributes feeling sick today to the dose increase in clozapine from 100 mg to 150 mg QHS and says you are bullying me and trying to poison me. She asked about her tegretol and clozapine levels and was informed they are wnl, but says the levels are high to me. She reports poor sleep and nightmares. Gricel was upset with the number of pills she has to take, pharmacy was called to change the formulations so that she has fewer amount of pills to take while on the unit. In the milieu, patient is overall safe and redirectable in behavior, however she appears irritable with lack of insight into why she is in the hospital. She did participate in art group. She denies SI/SIB/HI upon inquiry today. Medication Compliance: Yes Side effects from medications: No Attending Groups: Intermittent Review of Systems Acute medical concerns: No Review of Systems: CVS: No c/o chest pain, palpitations, no SOB CHIEF TECH[employer]OLOGY OFFICER: No c/o dizziness, headache GI: She is c/o Nausea. Denies Vomiting, diarrhea, constipation or heartburn Mental Status Exam Mental Status Exam Narrative: Disheveled appearance, not malodorous, obese, ambulating in wheelchair due to wt management issues. Poor eye contact, inattentive, lying in bed. No Tics or Tremors. No abnormal involuntary movements. Irritable but cooperative, difficult to engage in meaningful conversation. Non-pressured, flat speech with prolonged speech latency, no dysarthria. Mood is bad,? affect is irritable. Denies SI/SIB/HI upon inquiry. Endorses AH, denies VH, endorses paranoid delusions. Thoughts are illogical, bizarre. Appears to have cognitive/ memory impairment. Insight/ Judgment limited but adequate. Diagnostics Vital Signs (24Hr): Vital Signs - 24 hr 06/18/21 18:00 06/18/21 20:32 06/19/21 06:00 Temperature 98.4 F 98.4 F Pulse Rate 95 95 88 Respiratory Rate 18 18 Blood Pressure 123/88 123/88 129/73 Pulse Oximetry 96 96 06/19/21 08:41 Temperature Pulse Rate 88 Respiratory Rate Blood Pressure 129/73 Pulse Oximetry Body Mass Index 0.0 Labs Results: 06/17/21 06:47 06/18/21 06:20 Labs: Laboratory Results - last 48 hr 06/17/21 06/17/21 06/18/21 16:09 23:18 06:20 Sodium 137 132 L Potassium 4.8 4.7 Chloride 100 96 Carbon Dioxide 28 27 Anion Gap 14 14 BUN 14 14 Creatinine 0.74 0.74 Estim Creat Clear Calc 282.0 282.0 Estimated GFR > 60 > 60 Random Glucose 99 Fasting Glucose 88 Estimat Average Glucose Hemoglobin A1c % Calcium 9.0 8.8 Total Bilirubin 0.2 < 0.2 Direct Bilirubin < 0.2 AST 12 15 ALT 18 20 Alkaline Phosphatase 81 76 Total Protein 5.9 L 6.3 L Albumin 3.6 3.6 Triglycerides 108 Cholesterol 192 LDL Cholesterol, Calc 97 HDL Cholesterol 74 Vitamin B12 TSH 1.69 Free T4 0.90 Urine Test NEGATIVE Carbamazepine 5.0 06/18/21 06/18/21 06:20 06:20 Sodium Potassium Chloride Carbon Dioxide Anion Gap BUN Creatinine Estim Creat Clear Calc Estimated GFR Random Glucose Fasting Glucose Estimat Average Glucose 108 Hemoglobin A1c % 5.4 Calcium Total Bilirubin Direct Bilirubin AST ALT Alkaline Phosphatase Total Protein Albumin Triglycerides Cholesterol LDL Cholesterol, Calc HDL Cholesterol Vitamin B12 395 TSH Free T4 Urine Test Carbamazepine Medications Medications Current Medications Generic Name Dose Route Start Last Admin Trade Name Freq PRN Reason Stop Dose Admin Acetaminophen 650 mg 06/17/21 00:15 06/19/21 02:37 Acetaminophen 325 Mg Tablet PO 650 mg Q6H PRN Administration Headache/Pain Mild Scale (1-3) Al Hydroxide/Mg Hydroxide 30 ml 06/17/21 00:15 06/18/21 14:13 Magnesium Hydrox/Alum Hydrox 30 Ml Oral.Susp PO 30 ml Q6H PRN Administration Heartburn/Nausea Benztropine Mesylate 2 mg 06/17/21 09:00 06/19/21 08:41 Benztropine Mesylate 1 Mg Tablet PO 2 mg BID DREAD Administration Carbamazepine 100 mg 06/19/21 21:00 Carbamazepine Er 100 Mg Tab.Er.12h PO BID DREAD Carbamazepine 200 mg 06/19/21 21:00 Carbamazepine Er 200 Mg Tab.Er.12h PO BID DREAD Clozapine 50 mg 06/19/21 21:00 Clozapine 25 Mg Tablet PO BEDTIME DREAD Clozapine 100 mg 06/19/21 21:00 Clozapine 100 Mg Tablet PO BEDTIME DREAD Duloxetine HCl 60 mg 06/20/21 09:00 Duloxetine Hcl 60 Mg Capsule. PO DAILY DREAD Ferrous Sulfate 324 mg 06/16/21 09:00 06/19/21 08:41 Ferrous Sulfate 324 Mg Tablet. PO 324 mg DAILY DREAD Administration Furosemide 40 mg 06/16/21 09:00 06/19/21 08:42 Furosemide 40 Mg Tablet PO 40 mg DAILY DREAD Administration Protocol Levothyroxine Sodium 100 mcg 06/16/21 06:30 06/19/21 06:56 Levothyroxine Sodium 100 Mcg Tablet PO 100 mcg DAILY@0630 DREAD Administration Loratadine 10 mg 06/16/21 09:00 06/19/21 08:42 Loratadine 10 Mg Tablet PO 10 mg DAILY DREAD Administration Magnesium Hydroxide 30 ml 06/17/21 00:15 Milk Of Magnesia 30 Ml Oral.Susp PO DAILY PRN Constipation Melatonin 6 mg 06/16/21 21:00 06/18/21 20:29 Melatonin 3 Mg Tablet PO 6 mg BEDTIME DREAD Administration Nicotine 21 mg 06/17/21 09:45 06/19/21 08:40 Nicotine 21 Mg Patch.Td24 TRANSDERMA 21 mg DAILY DREAD Administration Nicotine Polacrilex 4 mg 06/17/21 11:24 06/19/21 13:54 Nicotine Polacrilex 2 Mg Gum BUCCAL 4 mg Q2H PRN Administration Nicotine Cravings Patient Own 1 each 06/17/21 13:30 06/19/21 08:42 Medication ( PO 1 each Meloxicam 15 Mg) DAILY DREAD Administration Olanzapine 10 mg 06/16/21 23:56 06/18/21 14:14 Olanzapine 10 Mg Tablet PO 10 mg BID PRN Administration Anxiety, Agitation Paliperidone Palmitate 234 mg 06/16/21 01:15 Paliperidone Palmitate 234 Mg/1.5 Ml Syringe IM .Q4W DREAD Ropinirole HCl 1.5 mg 06/17/21 21:00 08/05/21 20:30 Ropinirole Hcl 0.5 Mg Tablet PO 1.5 mg BEDTIME DREAD Administration Spironolactone 50 mg 06/16/21 09:00 06/19/21 08:41 Spironolactone 25 Mg Tablet PO 50 mg BID DREAD Administration Protocol Allergies Allergies Allergy/AdvReac Type Severity Reaction Status Date / Time banana [Banana] Allergy Severe ANAPHYLAXIS Verified 04/11/21 04:26 bee pollen [BEE STINGS] Allergy Unknown SWELLING Verified 04/11/21 04:26 cephalexin [Keflex] Allergy Unknown Unknown Verified 04/11/21 04:26 trazodone [TRAZODONE] Allergy Unknown BODY Verified 04/11/21 04:26 SITFFENS peanut [PEANUT] AdvReac Unknown TACHYCARDIA Verified 04/11/21 04:26 pistachio nut AdvReac Unknown TACHYCARDIA Verified 04/11/21 04:26 From KEFLEX Allergy Unknown UNKNOWN Uncoded 04/11/21 04:26 Assessment & Plan Assessment & Plan (1) Schizoaffective disorder: Qualifiers: Schizoaffective disorder type: bipolar Qualified Code(s): F25.0 - Schizoaffective disorder, bipolar type Status: Acute Code(s): F25.9 - Schizoaffective disorder, unspecified Assessment and Plan: 41 year old woman who carries a diagnosis of schizoaffective disorder, bipolar type, most recent episode manic. She is currently presenting with depressed mood, impulsive behaviors, paranoid delusional thought content, A/VH, and dysregulated behaviors. She was recently discharged from [facility], [facility] from [facility] due to dysregulated behaviors, aggression, and delusional thought content. Reports feeling triggered by staff at her [facility]p and fixates on allegations that she is being harmed at [facility]p and meds are being witheld from her. She has multiple co-morbid health concerns including obesity, poor skin integrity, arthritis, hyperlipidemia, hypothyroidism, lyph edema, PCOS, chronic pain, and avascular necrosis of R femur. She was most recently treated with clozapine, PRN zyprexa, invega sustenna, and tegretol, monitor for hx of hyponatremia. 06/19/21: Gricel appeared irritable today and says she does not want to take tegretol XR or clozapine. She continues to present with paranoid thought content and with lack of insight. Will re-check sodium and CBC. 1. Continue cymbalta 60 mg QD for mood symptoms 2. Continue melatonin 6 mg QHS for poor sleep 3. Continue invega sustenna 234 mg, last administered 05/27/21 4. Continue cogentin 2 mg BID for EPS prophylaxis, consider decreasing dose 5. Continue tegretol XR 300 mg BID for mood stability, monitor sodium level, L 132 on 06/18 6. Continue clozapine 150 mg QHS to target psychotic sx, aggression 7. Continue olanzapine 10 mg BID PRN for breakthrough agitation, aggression, psychosis Monitor for safety in the milieu. Discharge on stabilization. Patient seen. Chart reviewed. Discussed with team.?? Not okay for fresh air breaks Greater than 50% of the session was spent on counseling and/or coordination of care Reason for contiued inpatient stay Substantial Risk for: med/psych decompensation
[2021-06-19 17:10] LABS: MANUAL DIFF FLAG NO
[2021-06-19 17:13] LABS: Basophils Percent Auto 0.4 % (0-2); Eosinophils Absolute Auto 0.2 X10*3/uL (0.0-0.4); Eosinophils Percent Auto 2.8 % (0-4); Hematocrit 40.9 % (37-47); Hemoglobin 13.8 g/dl (12.0-16.0); Imm Gran Abs Auto 0.04 X10*3/uL (0.00-0.03); Imm Gran Pct Auto 0.5 % (0.0-0.4); Lymphocytes Percent Auto 24.3 % (20-40); Mean Corpuscular HGB Conc 33.7 g/dl (31.0-35.0); Mean Corpuscular Hemoglobin 31.7 pg (27.0-33.0); Mean Platelet Volume 8.7 fL (9.4-12.3); Monocytes Absolute Auto 0.6 X10*3/uL (0.1-1.2); Monocytes Percent Auto 7.6 % (2-11); Neutrophils Absolute Auto 5.2 X10*3/uL (2.0-8.3); Neutrophils Percent Auto 64.4 % (45-73); Platelet Count 339 X10*3/uL (160-400); Red Blood Count 4.35 X10*6/uL (4.20-5.50); Red Cell Distribution Width 13.8 % (11.0-16.0); White Blood Count 8.1 X10*3/uL (4.8-10.8)
[2021-06-19 17:39] LABS: Alanine Aminotransferase 22 U/L (0-31); Albumin Level 3.9 g/dL (3.5-5.0); Alkaline Phosphatase 82 U/L (39-117); Anion Gap 15 (12-20); Aspartate Amino Transferase 12 U/L (5-31); Bilirubin Total < 0.2 mg/dL (0.0-1.0); Blood Urea Nitrogen 15 mg/dL (9-16); Calcium 9.2 mg/dL (8.4-10.2); Carbon Dioxide 26 mmol/L (22-29); Chloride 97 mmol/L (96-108); Creatinine Clr Calc Pharmacy 288.6; Estimated Glomerular Filt Rate > 60; Glucose Random 113 mg/dL (60-115); Potassium 4.6 mmol/L (3.3-5.1); Sodium 133 mmol/L (135-145); Total Protein 6.6 g/dL (6.5-8.0)
[2021-06-19 18:00] VITALS: BP 119/87; PULSE 104; RESP 16; TEMP 36.7; O2SAT 96
--- NOTE | 2021-06-19 19:52 | PC.NURSE ---
Patient handed me her 06/19/2021 nicotine patch at this time. I am unable to document this on the CHAD Jones RN charge nurse informed
[2021-06-19 21:15] VITALS: BP 98/55; PULSE 89
[2021-06-19] MEDS: Melatonin 3 MG TABLET 6 MG PO (21:15)
[2021-06-19] MEDS: carBAMazepine ER 200 MG TAB.ER.12H PO (21:15)
[2021-06-19] MEDS: carBAMazepine ER 100 MG TAB.ER.12H PO (21:15)
[2021-06-19] MEDS: cloZAPine 100 MG TABLET PO (21:16)
[2021-06-19] MEDS: cloZAPine 25 MG TABLET 50 MG PO (21:16)
[2021-06-19] MEDS: rOPINIRole HCL 0.5 MG TABLET 1.5 MG PO (21:16)
[2021-06-19 21:20] VITALS: TEMP 36.8
[2021-06-20 09:18] VITALS: BP 133/96; PULSE 101; RESP 16; TEMP 36.7; O2SAT 94
[2021-06-20] MEDS: Nicotine 21 MG PATCH.TD24 TRANSDERMA (09:19)
[2021-06-20] MEDS: Loratadine 10 MG TABLET PO (09:20)
[2021-06-20] MEDS: carBAMazepine ER 200 MG TAB.ER.12H PO ×2 (09:20→20:39)
[2021-06-20] MEDS: DULoxetine HCl 60 MG CAPSULE.DR PO (09:20)
[2021-06-20 09:21] VITALS: BP 133/96; PULSE 101
[2021-06-20] MEDS: Levothyroxine Sodium 100 MCG TABLET PO (09:21)
[2021-06-20] MEDS: Furosemide 40 MG TABLET PO (09:21)
[2021-06-20] MEDS: Benztropine Mesylate 1 MG TABLET 2 MG PO ×2 (09:21→20:38)
[2021-06-20] MEDS: Spironolactone 25 MG TABLET 50 MG PO ×2 (09:21→20:39)
[2021-06-20] MEDS: carBAMazepine ER 100 MG TAB.ER.12H PO ×2 (09:21→20:39)
[2021-06-20] MEDS: Ferrous Sulfate 324 MG TABLET.DR PO (09:21)
[2021-06-20] MEDS: Magnesium Hydrox/Alum Hydrox 30 ML ORAL.SUSP PO ×2 (09:29→20:52)
[2021-06-20] MEDS: Nicotine Polacrilex 2 MG GUM 4 MG BUCCAL ×3 (10:32→16:23)
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
[2021-06-20 20:33] VITALS: TEMP 36.7; O2SAT 96
[2021-06-20 20:39] VITALS: BP 109/65; PULSE 87
[2021-06-20] MEDS: cloZAPine 25 MG TABLET 50 MG PO (20:39)
[2021-06-20] MEDS: Acetaminophen 325 MG TABLET 650 MG PO (20:39)
[2021-06-20] MEDS: rOPINIRole HCL 0.5 MG TABLET 1.5 MG PO (20:39)
[2021-06-20] MEDS: Melatonin 3 MG TABLET 6 MG PO (20:39)
[2021-06-20] MEDS: cloZAPine 100 MG TABLET PO (20:39)
[2021-06-21 09:41] VITALS: BP 124/70; PULSE 110; RESP 16; TEMP 36.2; O2SAT 95
[2021-06-21 09:42] VITALS: BP 124/70; PULSE 110
[2021-06-21] MEDS: Loratadine 10 MG TABLET PO (09:42)
[2021-06-21] MEDS: Nicotine 21 MG PATCH.TD24 TRANSDERMA (09:42)
[2021-06-21] MEDS: carBAMazepine ER 100 MG TAB.ER.12H PO ×2 (09:42→22:55)
[2021-06-21] MEDS: carBAMazepine ER 200 MG TAB.ER.12H PO ×2 (09:42→22:55)
[2021-06-21] MEDS: Spironolactone 25 MG TABLET 50 MG PO ×2 (09:42→22:54)
[2021-06-21] MEDS: Multivitamin TABLET 1 TAB PO (09:42)
[2021-06-21] MEDS: Benztropine Mesylate 1 MG TABLET 2 MG PO ×2 (09:42→22:54)
[2021-06-21] MEDS: DULoxetine HCl 60 MG CAPSULE.DR PO (09:42)
[2021-06-21] MEDS: Levothyroxine Sodium 100 MCG TABLET PO (09:43)
[2021-06-21] MEDS: Furosemide 40 MG TABLET PO (09:43)
[2021-06-21] MEDS: Ferrous Sulfate 324 MG TABLET.DR PO (09:43)
[2021-06-21] MEDS: Nicotine Polacrilex 2 MG GUM 4 MG BUCCAL ×2 (09:49→17:20)
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
[2021-06-21 22:28] VITALS: BP 119/85; PULSE 97; RESP 20; TEMP 36.9; O2SAT 98
[2021-06-21] MEDS: cloZAPine 100 MG TABLET PO (22:53)
[2021-06-21] MEDS: cloZAPine 25 MG TABLET 50 MG PO (22:53)
[2021-06-21 22:54] VITALS: BP 119/85; PULSE 97
[2021-06-21] MEDS: rOPINIRole HCL 0.5 MG TABLET 1.5 MG PO (22:54)
[2021-06-21] MEDS: Melatonin 3 MG TABLET 6 MG PO (22:54)
[2021-06-22 06:00] VITALS: BP 124/73; PULSE 95; RESP 16; TEMP 36.9; O2SAT 96
[2021-06-22] MEDS: Levothyroxine Sodium 100 MCG TABLET PO (08:24)
[2021-06-22] MEDS: Loratadine 10 MG TABLET PO (08:24)
[2021-06-22] MEDS: carBAMazepine ER 100 MG TAB.ER.12H PO ×2 (08:25→22:00)
[2021-06-22] MEDS: Ferrous Sulfate 324 MG TABLET.DR PO (08:25)
[2021-06-22] MEDS: carBAMazepine ER 200 MG TAB.ER.12H PO ×2 (08:25→22:00)
[2021-06-22] MEDS: Benztropine Mesylate 1 MG TABLET 2 MG PO ×2 (08:26→21:59)
[2021-06-22] MEDS: DULoxetine HCl 60 MG CAPSULE.DR PO (08:26)
[2021-06-22] MEDS: Spironolactone 25 MG TABLET 50 MG PO ×2 (08:27→22:00)
[2021-06-22] MEDS: Furosemide 40 MG TABLET PO (08:27)
[2021-06-22] MEDS: Multivitamin TABLET 1 TAB PO (08:28)
[2021-06-22] MEDS: Nicotine 21 MG PATCH.TD24 TRANSDERMA (08:38)
[2021-06-22] MEDS: Nicotine Polacrilex 2 MG GUM 4 MG BUCCAL ×2 (08:38→22:01)
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
[2021-06-22] MEDS: Acetaminophen 325 MG TABLET 650 MG PO (16:32)
[2021-06-22] MEDS: rOPINIRole HCL 0.5 MG TABLET 1.5 MG PO (21:59)
[2021-06-22 22:00] VITALS: BP 108/59; PULSE 92; RESP 18; TEMP 36.7; O2SAT 96
[2021-06-22] MEDS: cloZAPine 100 MG TABLET PO (22:00)
[2021-06-22] MEDS: Melatonin 3 MG TABLET 6 MG PO (22:00)
[2021-06-22] MEDS: cloZAPine 25 MG TABLET 50 MG PO (22:00)
[2021-06-23 06:00] VITALS: BP 120/80; PULSE 92; RESP 16; TEMP 36.2; O2SAT 96
[2021-06-23] MEDS: Levothyroxine Sodium 100 MCG TABLET PO (08:09)
[2021-06-23] MEDS: carBAMazepine ER 200 MG TAB.ER.12H PO ×2 (09:28→20:23)
[2021-06-23] MEDS: Spironolactone 25 MG TABLET 50 MG PO ×2 (09:28→20:34)
[2021-06-23] MEDS: Ferrous Sulfate 324 MG TABLET.DR PO (09:29)
[2021-06-23] MEDS: Benztropine Mesylate 1 MG TABLET 2 MG PO ×2 (09:29→20:22)
[2021-06-23] MEDS: Nicotine 21 MG PATCH.TD24 TRANSDERMA (09:29)
[2021-06-23] MEDS: Furosemide 40 MG TABLET PO (09:29)
[2021-06-23] MEDS: Loratadine 10 MG TABLET PO (09:29)
[2021-06-23] MEDS: DULoxetine HCl 60 MG CAPSULE.DR PO (09:29)
[2021-06-23] MEDS: carBAMazepine ER 100 MG TAB.ER.12H PO ×2 (09:29→20:23)
[2021-06-23] MEDS: Multivitamin TABLET 1 TAB PO (09:29)
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
[2021-06-23] MEDS: Nicotine Polacrilex 2 MG GUM 4 MG BUCCAL ×2 (10:08→20:23)
[2021-06-23] MEDS: cloZAPine 100 MG TABLET PO (20:23)
[2021-06-23] MEDS: Melatonin 3 MG TABLET 6 MG PO (20:23)
[2021-06-23] MEDS: rOPINIRole HCL 0.5 MG TABLET 1.5 MG PO (20:24)
[2021-06-23] MEDS: cloZAPine 25 MG TABLET 50 MG PO (20:24)
[2021-06-23 20:34] VITALS: BP 122/61; PULSE 95
[2021-06-23 20:37] VITALS: BP 122/61; PULSE 95; TEMP 36.9; O2SAT 91
[2021-06-24] MEDS: Acetaminophen 325 MG TABLET 650 MG PO ×3 (04:11→21:39)
[2021-06-24] MEDS: Levothyroxine Sodium 100 MCG TABLET PO (06:52)
[2021-06-24] MEDS: carBAMazepine ER 100 MG TAB.ER.12H PO ×2 (09:26→21:19)
[2021-06-24] MEDS: Benztropine Mesylate 1 MG TABLET 2 MG PO ×2 (09:26→21:18)
[2021-06-24] MEDS: carBAMazepine ER 200 MG TAB.ER.12H PO ×2 (09:26→21:19)
[2021-06-24] MEDS: Ferrous Sulfate 324 MG TABLET.DR PO (09:26)
[2021-06-24] MEDS: DULoxetine HCl 60 MG CAPSULE.DR PO (09:26)
[2021-06-24] MEDS: Furosemide 40 MG TABLET PO (09:27)
[2021-06-24] MEDS: Multivitamin TABLET 1 TAB PO (09:27)
[2021-06-24] MEDS: Loratadine 10 MG TABLET PO (09:27)
[2021-06-24 09:28] VITALS: BP 134/91; PULSE 95
[2021-06-24] MEDS: Spironolactone 25 MG TABLET 50 MG PO ×2 (09:28→21:38)
[2021-06-24 09:30] VITALS: BP 134/91; PULSE 95; RESP 18; TEMP 36.8; O2SAT 98
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
[2021-06-24] MEDS: Nicotine Polacrilex 2 MG GUM 4 MG BUCCAL (10:54)
[2021-06-24] MEDS: Nicotine 21 MG PATCH.TD24 TRANSDERMA (10:55)
[2021-06-24] MEDS: rOPINIRole HCL 0.5 MG TABLET 1.5 MG PO (21:18)
[2021-06-24] MEDS: cloZAPine 25 MG TABLET 50 MG PO (21:19)
[2021-06-24] MEDS: Melatonin 3 MG TABLET 6 MG PO (21:19)
[2021-06-24] MEDS: cloZAPine 100 MG TABLET PO (21:19)
[2021-06-24 21:37] VITALS: PULSE 102; TEMP 36.9; O2SAT 95
[2021-06-24 21:38] VITALS: BP 125/62; PULSE 102
[2021-06-25 00:50] LABS: Clozapine (Clozaril) 44 mcg/L; Norclozapine 24 mcg/L (25-400)
[2021-06-25] MEDS: Levothyroxine Sodium 100 MCG TABLET PO (05:50)
[2021-06-25 07:00] VITALS: BMI 65.4
[2021-06-25 08:40] VITALS: BP 132/89; PULSE 106; RESP 18; TEMP 36.5; O2SAT 95
[2021-06-25 08:45] VITALS: BP 132/89; PULSE 106
[2021-06-25] MEDS: Benztropine Mesylate 1 MG TABLET 2 MG PO ×2 (08:45→20:14)
[2021-06-25] MEDS: carBAMazepine ER 200 MG TAB.ER.12H PO ×2 (08:45→20:14)
[2021-06-25] MEDS: carBAMazepine ER 100 MG TAB.ER.12H PO ×2 (08:45→20:14)
[2021-06-25] MEDS: Spironolactone 25 MG TABLET 50 MG PO ×2 (08:45→20:15)
[2021-06-25] MEDS: DULoxetine HCl 60 MG CAPSULE.DR PO (08:46)
[2021-06-25] MEDS: Loratadine 10 MG TABLET PO (08:46)
[2021-06-25] MEDS: Ferrous Sulfate 324 MG TABLET.DR PO (08:46)
[2021-06-25] MEDS: Furosemide 40 MG TABLET PO (08:46)
[2021-06-25] MEDS: Multivitamin TABLET 1 TAB PO (08:47)
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
[2021-06-25] MEDS: Nicotine 21 MG PATCH.TD24 TRANSDERMA (10:14)
[2021-06-25] MEDS: Hydrocortisone 1 % Ointment 28.35 GM TUBE 1 APPL TOPICAL ×2 (12:39→20:31)
[2021-06-25] MEDS: Nicotine Polacrilex 2 MG GUM 4 MG BUCCAL ×2 (13:09→20:14)
[2021-06-25] MEDS: rOPINIRole HCL 0.5 MG TABLET 1.5 MG PO (20:14)
[2021-06-25] MEDS: Acetaminophen 325 MG TABLET 650 MG PO (20:14)
[2021-06-25] MEDS: cloZAPine 100 MG TABLET PO (20:14)
[2021-06-25] MEDS: cloZAPine 25 MG TABLET 50 MG PO (20:14)
[2021-06-25 20:15] VITALS: BP 112/74; PULSE 99
[2021-06-25] MEDS: Melatonin 3 MG TABLET 6 MG PO (20:15)
[2021-06-25 20:32] VITALS: TEMP 36.9; O2SAT 95
[2021-06-26 06:00] VITALS: BP 121/81; PULSE 108; RESP 22; TEMP 37.1; O2SAT 94
[2021-06-26] MEDS: Benztropine Mesylate 1 MG TABLET 2 MG PO (08:59)
[2021-06-26] MEDS: Spironolactone 25 MG TABLET 50 MG PO (09:00)
[2021-06-26] MEDS: DULoxetine HCl 60 MG CAPSULE.DR PO (09:00)
[2021-06-26] MEDS: Levothyroxine Sodium 100 MCG TABLET PO (09:00)
[2021-06-26] MEDS: Loratadine 10 MG TABLET PO (09:00)
[2021-06-26] MEDS: carBAMazepine ER 100 MG TAB.ER.12H PO (09:00)
[2021-06-26] MEDS: Furosemide 40 MG TABLET PO (09:00)
[2021-06-26] MEDS: Multivitamin TABLET 1 TAB PO (09:00)
[2021-06-26] MEDS: carBAMazepine ER 200 MG TAB.ER.12H PO (09:00)
[2021-06-26] MEDS: Ferrous Sulfate 324 MG TABLET.DR PO (09:00)
[2021-06-26] MEDS: Nicotine 21 MG PATCH.TD24 TRANSDERMA (09:01)
[2021-06-26] MEDS: Acetaminophen 325 MG TABLET 650 MG PO (09:02)
[2021-06-26] MEDS: Hydrocortisone 1 % Ointment 28.35 GM TUBE 1 APPL TOPICAL (09:30)
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
== END 2021-06-26 13:15 | disposition home or self-care (01) | DRG 885 ==
LOC: HO.ED 06-16 22:45 → HO.PADLT16 06-16 23:16
PROVIDERS: Physician Assistant; Admitting Provider Registered Nurse; Emergency Provider Internal Medicine; Visit Provider Social Worker
DX: F25.0 Schizoaffective disorder, bipolar type (principal); Z68.44 Body mass index [BMI] 60.0-69.9, adult; E66.9 Obesity, unspecified; F43.12 Post-traumatic stress disorder, chronic; E03.9 Hypothyroidism, unspecified; Z20.822 Contact with and (suspected) exposure to COVID-19; F17.210 Nicotine dependence, cigarettes, uncomplicated; Z91.5 Personal history of self-harm; Z71.6 Tobacco abuse counseling; Z79.1 Long term (current) use of non-steroidal anti-inflammatories (NSAID); Z79.890 Hormone replacement therapy; Z79.899 Other long term (current) drug therapy
CPT/HCPCS: 36415; 80053; 80061; 80076; 80156; 80159; 80164; 80307; 81025; 82607; 83036; 84439; 84443; 85025; 87635; 96372; 97162; 99285

== ENCOUNTER 2021-07-09 13:00 | Outpatient (REF) | payer OTHER, SELFPAY ==
[2021-07-09 14:20] LABS: MANUAL DIFF FLAG NO
[2021-07-09 14:24] LABS: Basophils Percent Auto 0.2 % (0-2); Eosinophils Absolute Auto 0.1 X10*3/uL (0.0-0.4); Eosinophils Percent Auto 1.7 % (0-4); Hematocrit 42.7 % (37-47); Hemoglobin 14.3 g/dl (12.0-16.0); Imm Gran Abs Auto 0.04 X10*3/uL (0.00-0.03); Imm Gran Pct Auto 0.5 % (0.0-0.4); Lymphocytes Absolute Auto 1.4 X10*3/uL (1.2-4.9); Lymphocytes Percent Auto 16.8 % (20-40); Mean Corpuscular HGB Conc 33.5 g/dl (31.0-35.0); Mean Corpuscular Hemoglobin 31.8 pg (27.0-33.0); Mean Corpuscular Volume 94.9 fL (80-98); Mean Platelet Volume 9.4 fL (9.4-12.3); Monocytes Absolute Auto 0.8 X10*3/uL (0.1-1.2); Monocytes Percent Auto 9.7 % (2-11); Neut%MD 71.1 %; Neutrophils Absolute Auto 5.7 X10*3/uL (2.0-8.3); Neutrophils Percent Auto 71.1 % (45-73); Platelet Count 348 X10*3/uL (160-400); Red Cell Distribution Width 13.8 % (11.0-16.0)
[2021-07-09 14:53] LABS: Alanine Aminotransferase 27 U/L (0-31); Alkaline Phosphatase 94 U/L (39-117); Anion Gap 14 (12-20); Aspartate Amino Transferase 18 U/L (5-31); Bilirubin Total 0.3 mg/dL (0.0-1.0); Blood Urea Nitrogen 10 mg/dL (9-16); Calcium 8.8 mg/dL (8.4-10.2); Carbon Dioxide 26 mmol/L (22-29); Chloride 96 mmol/L (96-108); Estimated Glomerular Filt Rate > 60; Glucose Random 108 mg/dL (60-115); Sodium 131 mmol/L (135-145); Total Protein 6.8 g/dL (6.5-8.0)
== END 2021-07-09 13:01 | disposition home or self-care (01) ==
LOC: HO.LAB 13:00
PROVIDERS: Absent Provider Nurse Practitioner Family; PCP Hospitalist; Visit Provider Psychiatry & Neurology Psychiatry
DX: F31.81 Bipolar II disorder (principal); F43.10 Post-traumatic stress disorder, unspecified; F19.10 Other psychoactive substance abuse, uncomplicated; F25.0 Schizoaffective disorder, bipolar type; J45.909 Unspecified asthma, uncomplicated; Z79.899 Other long term (current) drug therapy
CPT/HCPCS: 36415; 80053; 85025

== ENCOUNTER 2021-07-17 12:23 | Outpatient (REF) | payer OTHER, SELFPAY ==
[2021-07-17 13:15] LABS: MANUAL DIFF FLAG NO
[2021-07-17 13:24] LABS: Basophils Percent Auto 0.4 % (0-2); Eosinophils Absolute Auto 0.1 X10*3/uL (0.0-0.4); Eosinophils Percent Auto 1.2 % (0-4); Hematocrit 42.8 % (37-47); Hemoglobin 14.2 g/dl (12.0-16.0); Imm Gran Abs Auto 0.04 X10*3/uL (0.00-0.03); Imm Gran Pct Auto 0.4 % (0.0-0.4); Lymphocytes Absolute Auto 2.1 X10*3/uL (1.2-4.9); Lymphocytes Percent Auto 19.8 % (20-40); Mean Corpuscular HGB Conc 33.2 g/dl (31.0-35.0); Mean Corpuscular Hemoglobin 31.3 pg (27.0-33.0); Mean Corpuscular Volume 94.5 fL (80-98); Mean Platelet Volume 9.1 fL (9.4-12.3); Monocytes Percent Auto 9.5 % (2-11); Neutrophils Absolute Auto 7.2 X10*3/uL (2.0-8.3); Neutrophils Percent Auto 68.7 % (45-73); Platelet Count 381 X10*3/uL (160-400); Red Blood Count 4.53 X10*6/uL (4.20-5.50); Red Cell Distribution Width 13.8 % (11.0-16.0); White Blood Count 10.4 X10*3/uL (4.8-10.8)
== END 2021-07-17 12:24 | disposition home or self-care (01) ==
LOC: HO.LABR 12:23
PROVIDERS: Visit Provider Psychiatry & Neurology Psychiatry
DX: Z79.899 Other long term (current) drug therapy (principal)
CPT/HCPCS: 36415; 85025

== ENCOUNTER 2021-07-24 14:52 | Outpatient (REF) | payer OTHER, SELFPAY ==
[2021-07-24 15:30] LABS: MANUAL DIFF FLAG NO
[2021-07-24 15:31] LABS: Basophils Absolute Auto 0.1 X10*3/uL (0.0-0.2); Basophils Percent Auto 0.5 % (0-2); Eosinophils Absolute Auto 0.1 X10*3/uL (0.0-0.4); Hematocrit 44.3 % (37-47); Hemoglobin 15.1 g/dl (12.0-16.0); Imm Gran Abs Auto 0.05 X10*3/uL (0.00-0.03); Imm Gran Pct Auto 0.5 % (0.0-0.4); Lymphocytes Absolute Auto 2.2 X10*3/uL (1.2-4.9); Lymphocytes Percent Auto 20.5 % (20-40); Mean Corpuscular HGB Conc 34.1 g/dl (31.0-35.0); Mean Corpuscular Hemoglobin 31.5 pg (27.0-33.0); Mean Corpuscular Volume 92.5 fL (80-98); Mean Platelet Volume 8.9 fL (9.4-12.3); Monocytes Absolute Auto 1.1 X10*3/uL (0.1-1.2); Monocytes Percent Auto 9.6 % (2-11); Neutrophils Absolute Auto 7.4 X10*3/uL (2.0-8.3); Neutrophils Percent Auto 67.9 % (45-73); Platelet Count 347 X10*3/uL (160-400); Red Blood Count 4.79 X10*6/uL (4.20-5.50); Red Cell Distribution Width 13.9 % (11.0-16.0); White Blood Count 10.9 X10*3/uL (4.8-10.8)
== END 2021-07-24 14:53 | disposition home or self-care (01) ==
LOC: HO.LABR 14:52
PROVIDERS: Visit Provider Psychiatry & Neurology Psychiatry
DX: Z79.899 Other long term (current) drug therapy (principal)
CPT/HCPCS: 36415; 85025

== ENCOUNTER 2021-07-31 13:28 | Outpatient (REF) | payer OTHER, SELFPAY ==
[2021-07-31 14:23] LABS: Basophils Percent Auto 0.8 % (0-2); Eosinophils Absolute Auto 0.1 X10*3/uL (0.0-0.4); Eosinophils Percent Auto 1.7 % (0-4); Hematocrit 45.4 % (37-47); Imm Gran Abs Auto 0.02 X10*3/uL (0.00-0.03); Imm Gran Pct Auto 0.4 % (0.0-0.4); Lymphocytes Absolute Auto 1.4 X10*3/uL (1.2-4.9); Lymphocytes Percent Auto 26.5 % (20-40); MANUAL DIFF FLAG SCAN; Mean Corpuscular Hemoglobin 31.8 pg (27.0-33.0); Mean Corpuscular Volume 96.2 fL (80-98); Monocytes Absolute Auto 0.8 X10*3/uL (0.1-1.2); Neutrophils Percent Auto 55.6 % (45-73); PLT CLUMP 1; Red Blood Count 4.72 X10*6/uL (4.20-5.50); SCAN SMEAR FLAG 1
[2021-07-31 15:39] LABS: SLIDE REVIEW VERIFIED
[2021-07-31 16:31] LABS: White Blood Count 5.3 X10*3/uL (4.8-10.8)
== END 2021-07-31 13:29 | disposition home or self-care (01) ==
LOC: HO.LABR 13:28
PROVIDERS: Visit Provider Psychiatry & Neurology Psychiatry
DX: Z79.899 Other long term (current) drug therapy (principal)
CPT/HCPCS: 36415; 85025

== ENCOUNTER 2021-08-03 01:04 | Emergency (ER) | payer OTHER, SELFPAY ==
--- NOTE | ~2021-08-03 | XR_ITS ---
EXAMINATION: XR HIP, RIGHT CLINICAL INFORMATION: Pain, rule out fracture COMPARISON: 05/30/2021 TECHNIQUE: Two views of the right hip. FINDINGS: Alignment across the hip is anatomic with moderate to severe joint space narrowing superiorly and associated spurring. No acute fracture is seen. Included portions of the pelvis appear intact. XR/XR hip RT min 2V IMPRESSION: No acute findings identified. Moderate to severe degenerative change along the superior aspect of the hip joint.
--- NOTE | ~2021-08-03 | XR_ITS ---
EXAMINATION: XR TIBIA AND FIBULA, RIGHT CLINICAL INFORMATION: Pain, rule out fracture COMPARISON: None TECHNIQUE: AP and lateral views of the right tibia and fibula were obtained. FINDINGS: Alignment at the knee and ankle appears anatomic on these views. No acute fracture is seen. There is mild to moderate degenerative change at the knee with some joint space narrowing superiorly and spurring. Mild spurring is also noted at the distal tibia. XR/XR tibia fibula RT 2V IMPRESSION: No acute findings identified.
[2021-08-03 01:08] VITALS: BP 128/76; PULSE 86; RESP 16; TEMP 36.6; O2SAT 97; BMI 62.6
--- NOTE | 2021-08-03 01:23 | ED.LOWEXIN ---
HPI - Extremity Injury (Lower) General Chief Complaint: Extremity Injury, Lower Stated Complaint: R Cadena pain Time Seen by Provider: 08/03/21 01:12 Source: patient and EMS Mode of arrival: EMS Limitations: no limitations History of Present Illness HPI Narrative: 41-year-old female came in for evaluation of her right hip/right cadena pain. This is a 41-year-old with chronic right hip pain secondary to osteonecrosis in the right femur all head with degenerative change in both hip on MRI done on the patient a year ago, patient sustained mechanical fall 5 days ago and complaining of right hip pain and right cadena pain for 5 days, patient is able to ambulate with difficulty due to pain. Pain is becoming worse tonight called 911 for further evaluation. Related Data Home Medications Medication Instructions Recorded Confirmed paliperidone palmitate 234 mg/1.5 234 mg IM Q28D 04/11/21 06/18/21 mL intramuscular syringe (Invega SustStagee) lisinopril 10 mg tablet 1 tab PO DAILY 06/16/21 06/16/21 loratadine 10 mg tablet 1 tab PO DAILY 06/16/21 06/16/21 meloxicam 15 mg tablet 1 tab PO DAILY 06/16/21 06/16/21 nicotine (polacrilex) 2 mg gum 2 mg PO Q2-3H PRN 06/16/21 06/16/21 paliperidone palmitate 234 mg/1.5 234 mg IM Q4W 06/16/21 06/16/21 mL intramuscular syringe ([employer]) spironolactone 50 mg tablet 1 tab PO BID 06/16/21 06/16/21 Previous Rx's Medication Instructions Recorded benztropine 1 mg tablet 2 mg PO BID #120 tab 06/26/21 carbamazepine 100 mg 100 mg PO BID #60 tab 06/26/21 tablet,extended release,12 hr (Tegretol XR) carbamazepine 200 mg 200 mg PO BID #60 tab 06/26/21 tablet,extended release,12 hr clozapine 100 mg tablet 100 mg PO BEDTIME #7 tab 06/26/21 clozapine 50 mg tablet (Clozaril) 50 mg PO BID #7 tab 06/26/21 duloxetine 60 mg capsule,delayed 60 mg PO DAILY #30 cap 06/26/21 release ferrous sulfate 324 mg (65 mg 324 mg PO DAILY #30 tab 06/26/21 iron) tablet,delayed release furosemide 40 mg tablet 40 mg PO DAILY #30 tab 06/26/21 hydrocortisone 1 % topical ointment 1 appl TOPICAL BID #28.35 g 06/26/21 levothyroxine 100 mcg tablet 100 mcg PO DAILY@0630 #30 tab 06/26/21 (Synthroid) melatonin 3 mg tablet 6 mg PO BEDTIME #60 tab 06/26/21 nicotine 21 mg/24 hr daily 21 mg TRANSDERMAL DAILY #28 ea 06/26/21 transdermal patch olanzapine 10 mg tablet 10 mg PO BID PRN #60 tab 06/26/21 ropinirole 0.5 mg tablet 1.5 mg PO BEDTIME #90 tab 06/26/21 ibuprofen 800 mg tablet 800 mg PO Q8H PRN #14 tab 08/03/21 oxycodone 5 mg tablet 5 mg PO TID PRN #10 tab 08/03/21 Allergies Allergy/AdvReac Type Severity Reaction Status Date / Time banana [Banana] Allergy Severe ANAPHYLAXIS Verified 04/11/21 04:26 bee pollen [BEE STINGS] Allergy Unknown SWELLING Verified 04/11/21 04:26 cephalexin [Keflex] Allergy Unknown Unknown Verified 04/11/21 04:26 trazodone [TRAZODONE] Allergy Unknown BODY Verified 04/11/21 04:26 SITFFENS peanut [PEANUT] AdvReac Unknown TACHYCARDIA Verified 04/11/21 04:26 pistachio nut AdvReac Unknown TACHYCARDIA Verified 04/11/21 04:26 From KEFLEX Allergy Unknown UNKNOWN Uncoded 04/11/21 04:26 Review of Systems Review of Systems: All other systems are reviewed and are negative Constitutional: Reports as per HPI and Reports no additional constitutional complaints Eyes: Reports as per HPI and Reports no additional eye complaints Reports system reviewed and no additional complaints, except as documented Cardiovascular: Reports as per HPI and Reports no additional cardiovascular complaints Respiratory: Reports as per HPI and Reports no additional respiratory complaints Gastrointestinal: Reports as per HPI and Reports no additional gastrointestinal complaints Genitourinary: Reports no additional female genitourinary complaints Musculoskeletal: Reports no additional musculoskeletal complaints Skin/Breast: Reports system reviewed and no additional complaints, except as docu Psychiatric: Reports no additional psychiatric complaints Endocrine: Reports no additional endocrine complaints Hematologic/Lymphatic: Reports no additional hematologic/lymphatic complaints Allergic/Immunologic: Reports no additional allergic/immunologic complaints Reports system reviewed and no additional complaints, except as documented and Reports Abnormal speech present [facility] Past Medical History Medical History Asthma Bipolar disorder Chronic post-traumatic stress disorder (PTSD) Chronic post-traumatic stress disorder (PTSD) Class 3 obesity Diabetes HTN (hypertension) Hypothyroidism PCOS (polycystic ovarian syndrome) Polysubstance abuse Psychosis Schizoaffective disorder Substance abuse Suicidal ideation Social History Social History Household Members: Other Household Members Other:: jail Housing: Other Housing Other:: jail Do you presently have visiting nurse or other home services: No Unable to assess alcohol history related to: Unknown Patient Tobacco Use Status: Current everyday Tobacco user Tobacco use type: Cigarette Cigarette Packs Per Day: 1 Cigarettes Per Day: 20.0 e-Cigarette/Vaping Use: Currently Using Second Hand Smoke Exposure: Yes Substance Use Type: Heroin Advance Directives: No service: No Sexual orientation: Don't Know Physical Exam Vital Signs: Vital Signs: Last Vital Signs Temp 97.8 F 08/03/21 01:08 Pulse 86 08/03/21 01:08 Resp 16 08/03/21 01:08 BP 128/76 08/03/21 01:08 Pulse Ox 97 08/03/21 01:08 Body Mass Index 62.6 Vital signs have been reviewed as appeared to be correct. Blood pressure normal. Heart rate normal. Respiration rate normal. Temperature normal. Oxygen saturation normal. Appearance: Alert. Oriented X3. No acute distress. Head: Normal external exam. Normocephalic. Atraumatic. No Agosto signs noted. No raccoon eyes noted Eyes: PERRLA. EOMI. Conjunctiva and sclera normal. Eyelids normal. ENT: TM's Normal. Pharynx normal. Uvula midline. Moist mucous membranes. No trismus noted. No drooling noted. No muffled voice noted. Neck: Normal inspection. Neck supple. FROM. No adenopathy. Thyroid Normal. No meningeal signs. No neck mass noted. CVS: Normal heart rate and rhythm. Heart sound normal. No murmurs noted. Pulses normal throughout. Respiratory: No respiratory distress. Painless inspiration. Breath sounds normal. No wheezes/rales/rhonchi noted. Chest nontender. No accessory muscle usage noted or decreased air movement noted. Abdomen: Soft and nontender. Bowel sounds normal in all 4 quadrants. No distention noted. No organomegaly noted. No visible injury noted. Back: No CVA tenderness. Full range of motion noted. Skin: Skin warm and dry. Normal skin color. Normal skin turgor. No rashes/lesions/lacerations noted. Extremities: Focal right hip tenderness, no deformity, decrease full range of motion due to tenderness, neurovascularly intact. Neuro: Oriented X 3. Cranial nerve exam: II-XII are grossly intact No motor deficit. No sensory deficit. Reflexes normal. Course Course Course Narrative: 41-year-old female history of degenerative disease on the right hip sustained fall 5 days ago been having pain in the right hip and right cadena, able to ambulate at home. X-ray showed no fracture, patient need to follow-up with her orthopedic doctor for further evaluation, discharged with pain medication and follow-up with PCP. MDM - Extremity Injury (Lower) Imaging Data Right hip/right tib fib x-ray: Radiologist's impression: No acute findings identified. Moderate to severe degenerative change along the superior aspect of the hip joint. ? Discharge Plan Discharge Clinical Impression: Chronic hip pain Qualifiers: Laterality: right Qualified Code(s): M25.551 - Pain in right hip Patient Disposition: Home, Self-Care Instructions: Arthralgia (ED) Prescriptions: New oxycodone 5 mg tablet 5 mg PO TID PRN (Reason: pain) Qty: 10 RF: 0 ibuprofen 800 mg tablet 800 mg PO Q8H PRN (Reason: pain) Qty: 14 RF: 0 No Action Invega Sustenna 234 mg/1.5 mL syringe 234 mg IM Q28D RF: 0 meloxicam 15 mg tablet 1 tab PO DAILY RF: 0 lisinopril 10 mg tablet 1 tab PO DAILY RF: 0 loratadine 10 mg tablet 1 tab PO DAILY RF: 0 spironolactone 50 mg tablet 1 tab PO BID RF: 0 Invega Sustenna 234 mg/1.5 mL syringe 234 mg IM Q4W RF: 0 nicotine (polacrilex) 2 mg gum 2 mg PO Q2-3H PRN (Reason: Nicotine Cravings) RF: 0 nicotine 21 mg/24 hr Patch 24 Hour 21 mg transdermal DAILY Qty: 28 RF: 0 ferrous sulfate 324 mg (65 mg iron) Tablet,Delayed Release (Dr/Ec) 324 mg PO DAILY Qty: 30 RF: 0 furosemide 40 mg Tablet 40 mg PO DAILY Qty: 30 RF: 0 clozapine 100 mg Tablet 100 mg PO BEDTIME Qty: 7 RF: 0 carbamazepine [Tegretol XR] 100 mg Tablet Extended Release 12 Hr 100 mg PO BID Qty: 60 RF: 0 olanzapine 10 mg Tablet 10 mg PO BID PRN (Reason: Anxiety, Agitation) Qty: 60 RF: 0 levothyroxine [Synthroid] 100 mcg Tablet 100 mcg PO DAILY@0630 Qty: 30 RF: 0 carbamazepine 200 mg Tablet Extended Release 12 Hr 200 mg PO BID Qty: 60 RF: 0 ropinirole 0.5 mg Tablet 1.5 mg PO BEDTIME Qty: 90 RF: 0 benztropine 1 mg Tablet 2 mg PO BID Qty: 120 RF: 0 duloxetine 60 mg Capsule,Delayed Release(Dr/Ec) 60 mg PO DAILY Qty: 30 RF: 0 melatonin 3 mg Tablet 6 mg PO BEDTIME Qty: 60 RF: 0 hydrocortisone 1 % Ointment 1 appl topical BID Qty: 28.35 RF: 0 clozapine [Clozaril] 50 mg tablet 50 mg PO BID Qty: 7 RF: 1 Referrals: Trev Morris MD [Physician] - 2 days
[2021-08-03] MEDS: oxyCODONE HCl Immed Release 5 MG TABLET PO (01:32)
[2021-08-03 03:11] VITALS: RESP 16
--- NOTE | 2021-08-03 03:29 | PC.NURSE ---
PT AMBULATED TO BATHROOM.
[2021-08-03 04:36] VITALS: RESP 16
== END 2021-08-03 05:41 | disposition home or self-care (01) ==
PROVIDERS: Emergency Provider Emergency Medicine
DX: M25.551 Pain in right hip (principal); F11.90 Opioid use, unspecified, uncomplicated; F17.210 Nicotine dependence, cigarettes, uncomplicated; Z71.6 Tobacco abuse counseling; Z79.899 Other long term (current) drug therapy
CPT/HCPCS: 73502; 73590; 99283; 99284

== ENCOUNTER 2021-08-07 13:53 | Outpatient (REF) | payer OTHER, SELFPAY ==
[2021-08-07 14:53] LABS: MANUAL DIFF FLAG NO
[2021-08-07 14:54] LABS: Basophils Percent Auto 0.3 % (0-2); Eosinophils Absolute Auto 0.1 X10*3/uL (0.0-0.4); Eosinophils Percent Auto 1.2 % (0-4); Hemoglobin 14.7 g/dl (12.0-16.0); Imm Gran Abs Auto 0.05 X10*3/uL (0.00-0.03); Imm Gran Pct Auto 0.5 % (0.0-0.4); Lymphocytes Absolute Auto 1.8 X10*3/uL (1.2-4.9); Lymphocytes Percent Auto 18.8 % (20-40); Mean Corpuscular HGB Conc 34.2 g/dl (31.0-35.0); Mean Corpuscular Hemoglobin 31.7 pg (27.0-33.0); Mean Corpuscular Volume 92.7 fL (80-98); Monocytes Absolute Auto 0.9 X10*3/uL (0.1-1.2); Monocytes Percent Auto 9.5 % (2-11); Neut%MD 69.7 %; Neutrophils Absolute Auto 6.5 X10*3/uL (2.0-8.3); Neutrophils Percent Auto 69.7 % (45-73); Platelet Count 350 X10*3/uL (160-400); Red Blood Count 4.64 X10*6/uL (4.20-5.50); Red Cell Distribution Width 13.7 % (11.0-16.0); WBCANC 9.3 X10*3/uL; White Blood Count 9.3 X10*3/uL (4.8-10.8)
== END 2021-08-07 13:54 | disposition home or self-care (01) ==
LOC: HO.LAB 13:53
PROVIDERS: Visit Provider Psychiatry & Neurology Psychiatry
DX: Z79.899 Other long term (current) drug therapy (principal)
CPT/HCPCS: 36415; 85025

== ENCOUNTER 2021-08-14 14:00 | Outpatient (REF) | payer OTHER, SELFPAY ==
[2021-08-14 14:33] LABS: MANUAL DIFF FLAG NO
[2021-08-14 14:54] LABS: Basophils Percent Auto 0.4 % (0-2); Eosinophils Absolute Auto 0.1 X10*3/uL (0.0-0.4); Eosinophils Percent Auto 1.6 % (0-4); Hematocrit 41.9 % (37-47); Hemoglobin 14.4 g/dl (12.0-16.0); Imm Gran Abs Auto 0.02 X10*3/uL (0.00-0.03); Imm Gran Pct Auto 0.3 % (0.0-0.4); Lymphocytes Absolute Auto 2.1 X10*3/uL (1.2-4.9); Lymphocytes Percent Auto 28.2 % (20-40); Mean Corpuscular HGB Conc 34.4 g/dl (31.0-35.0); Mean Corpuscular Hemoglobin 31.4 pg (27.0-33.0); Mean Corpuscular Volume 91.5 fL (80-98); Mean Platelet Volume 9.1 fL (9.4-12.3); Monocytes Absolute Auto 0.7 X10*3/uL (0.1-1.2); Monocytes Percent Auto 9.5 % (2-11); Neutrophils Absolute Auto 4.5 X10*3/uL (2.0-8.3); Platelet Count 355 X10*3/uL (160-400); Red Blood Count 4.58 X10*6/uL (4.20-5.50); Red Cell Distribution Width 13.9 % (11.0-16.0); White Blood Count 7.6 X10*3/uL (4.8-10.8)
== END 2021-08-14 14:01 | disposition home or self-care (01) ==
LOC: HO.LABR 14:00
PROVIDERS: Visit Provider Psychiatry & Neurology Psychiatry
DX: Z79.899 Other long term (current) drug therapy (principal)
CPT/HCPCS: 36415; 85025

== ENCOUNTER 2021-08-21 10:37 | Outpatient (REF) | payer OTHER, SELFPAY ==
[2021-08-21 10:52] LABS: MANUAL DIFF FLAG NO
[2021-08-21 12:02] LABS: Basophils Percent Auto 0.5 % (0-2); Eosinophils Absolute Auto 0.1 X10*3/uL (0.0-0.4); Eosinophils Percent Auto 1.6 % (0-4); Hematocrit 41.7 % (37-47); Hemoglobin 14.4 g/dl (12.0-16.0); Imm Gran Abs Auto 0.02 X10*3/uL (0.00-0.03); Imm Gran Pct Auto 0.4 % (0.0-0.4); Lymphocytes Absolute Auto 1.5 X10*3/uL (1.2-4.9); Lymphocytes Percent Auto 26.9 % (20-40); Mean Corpuscular HGB Conc 34.5 g/dl (31.0-35.0); Mean Corpuscular Hemoglobin 31.6 pg (27.0-33.0); Mean Corpuscular Volume 91.4 fL (80-98); Mean Platelet Volume 9.3 fL (9.4-12.3); Monocytes Absolute Auto 0.6 X10*3/uL (0.1-1.2); Monocytes Percent Auto 11.2 % (2-11); Neutrophils Absolute Auto 3.4 X10*3/uL (2.0-8.3); Neutrophils Percent Auto 59.4 % (45-73); Platelet Count 339 X10*3/uL (160-400); Red Blood Count 4.56 X10*6/uL (4.20-5.50); Red Cell Distribution Width 13.8 % (11.0-16.0); White Blood Count 5.7 X10*3/uL (4.8-10.8)
== END 2021-08-21 10:38 | disposition home or self-care (01) ==
LOC: HO.LABR 10:37
PROVIDERS: Visit Provider Psychiatry & Neurology Psychiatry
DX: Z79.899 Other long term (current) drug therapy (principal)
CPT/HCPCS: 36415; 85025

== ENCOUNTER 2021-08-28 11:13 | Outpatient (REF) | payer OTHER, SELFPAY ==
[2021-08-28 11:25] LABS: MANUAL DIFF FLAG NO
[2021-08-28 11:50] LABS: Basophils Percent Auto 0.3 % (0-2); Eosinophils Absolute Auto 0.1 X10*3/uL (0.0-0.4); Eosinophils Percent Auto 0.6 % (0-4); Hemoglobin 14.6 g/dl (12.0-16.0); Imm Gran Abs Auto 0.06 X10*3/uL (0.00-0.03); Imm Gran Pct Auto 0.4 % (0.0-0.4); Lymphocytes Absolute Auto 1.5 X10*3/uL (1.2-4.9); Lymphocytes Percent Auto 10.9 % (20-40); Mean Corpuscular Hemoglobin 31.5 pg (27.0-33.0); Mean Corpuscular Volume 92.9 fL (80-98); Mean Platelet Volume 9.2 fL (9.4-12.3); Monocytes Absolute Auto 0.9 X10*3/uL (0.1-1.2); Monocytes Percent Auto 6.7 % (2-11); Neut%MD 81.1 %; Neutrophils Absolute Auto 10.9 X10*3/uL (2.0-8.3); Neutrophils Percent Auto 81.1 % (45-73); Platelet Count 338 X10*3/uL (160-400); Red Blood Count 4.63 X10*6/uL (4.20-5.50); Red Cell Distribution Width 14.2 % (11.0-16.0); WBCANC 13.4 X10*3/uL; White Blood Count 13.4 X10*3/uL (4.8-10.8)
== END 2021-08-28 11:14 | disposition home or self-care (01) ==
LOC: HO.LABR 11:13
PROVIDERS: Visit Provider Psychiatry & Neurology Psychiatry
DX: Z79.899 Other long term (current) drug therapy (principal)
CPT/HCPCS: 36415; 85025

== ENCOUNTER 2021-09-04 09:49 | Outpatient (REF) | payer OTHER, SELFPAY ==
[2021-09-04 10:01] LABS: MANUAL DIFF FLAG NO
[2021-09-04 10:53] LABS: Basophils Percent Auto 0.4 % (0-2); Eosinophils Absolute Auto 0.1 X10*3/uL (0.0-0.4); Eosinophils Percent Auto 0.9 % (0-4); Hematocrit 43.8 % (37-47); Hemoglobin 15.1 g/dl (12.0-16.0); Imm Gran Abs Auto 0.04 X10*3/uL (0.00-0.03); Imm Gran Pct Auto 0.5 % (0.0-0.4); Lymphocytes Absolute Auto 1.5 X10*3/uL (1.2-4.9); Lymphocytes Percent Auto 19.3 % (20-40); Mean Corpuscular HGB Conc 34.5 g/dl (31.0-35.0); Mean Corpuscular Hemoglobin 31.7 pg (27.0-33.0); Mean Platelet Volume 9.2 fL (9.4-12.3); Monocytes Absolute Auto 0.8 X10*3/uL (0.1-1.2); Monocytes Percent Auto 10.2 % (2-11); Neutrophils Absolute Auto 5.2 X10*3/uL (2.0-8.3); Neutrophils Percent Auto 68.7 % (45-73); Platelet Count 376 X10*3/uL (160-400); Red Blood Count 4.76 X10*6/uL (4.20-5.50); Red Cell Distribution Width 14.1 % (11.0-16.0); White Blood Count 7.6 X10*3/uL (4.8-10.8)
== END 2021-09-04 09:50 | disposition home or self-care (01) ==
LOC: HO.LABR 09:49
PROVIDERS: Visit Provider Psychiatry & Neurology Psychiatry
DX: Z79.899 Other long term (current) drug therapy (principal)
CPT/HCPCS: 36415; 85025

== ENCOUNTER 2021-09-18 11:11 | Outpatient (REF) | payer OTHER, SELFPAY ==
[2021-09-18 11:31] LABS: MANUAL DIFF FLAG NO
[2021-09-18 11:55] LABS: Basophils Percent Auto 0.4 % (0-2); Eosinophils Absolute Auto 0.1 X10*3/uL (0.0-0.4); Eosinophils Percent Auto 1.9 % (0-4); Hematocrit 44.8 % (37.0-47.0); Hemoglobin 15.4 g/dl (12.0-16.0); Imm Gran Abs Auto 0.04 X10*3/uL (0.00-0.03); Imm Gran Pct Auto 0.5 % (0.0-0.4); Lymphocytes Absolute Auto 2.2 X10*3/uL (1.2-4.9); Lymphocytes Percent Auto 30.2 % (20-40); Mean Corpuscular HGB Conc 34.4 g/dl (31.0-35.0); Mean Corpuscular Hemoglobin 31.8 pg (27.0-33.0); Mean Corpuscular Volume 92.4 fL (80.0-98.0); Mean Platelet Volume 9.4 fL (9.4-12.3); Monocytes Absolute Auto 0.7 X10*3/uL (0.1-1.2); Monocytes Percent Auto 9.9 % (2-11); Neutrophils Absolute Auto 4.2 x10*3/uL (2.0-8.3); Neutrophils Percent Auto 57.1 % (45-73); Platelet Count 382 X10*3/uL (160-400); Red Blood Count 4.85 X10*6/uL (4.20-5.50); White Blood Count 7.4 X10*3/uL (4.8-10.8)
== END 2021-09-18 11:12 | disposition home or self-care (01) ==
LOC: HO.LABR 11:11
PROVIDERS: Visit Provider Psychiatry & Neurology Psychiatry
DX: Z79.899 Other long term (current) drug therapy (principal)
CPT/HCPCS: 36415; 85025

== ENCOUNTER 2021-09-25 22:18 | Emergency (ER) | payer OTHER, SELFPAY ==
--- NOTE | ~2021-09-25 | XR_ITS ---
EXAMINATION: XR HIP, RIGHT CLINICAL INFORMATION: Pain status post fall COMPARISON: 08/03/2021 TECHNIQUE: Two views of the right hip. Frontal view of the pelvis. FINDINGS: There is no fracture or dislocation. The hips are appropriately aligned. Severe degenerative changes of the right hip with superior joint space narrowing and near [id number] appearance. Subchondral sclerosis with osteophytes noted. The left hip is well aligned. The pelvic rim is intact. The sacroiliac joints and pubic symphysis are intact. XR/XR hip RT w [id number] IMPRESSION: No acute fracture or malalignment. Redemonstration of severe degenerative changes of the right hip.
[2021-09-25 22:30] VITALS: BP 123/89; BP 140/88; PULSE 90; PULSE 98; RESP 18; TEMP 36.8; O2SAT 96; O2SAT 98; BMI 62.6
[2021-09-25] MEDS: Ketorolac Tromethamine 60 MG/2 ML VIAL IM (23:54)
--- NOTE | 2021-09-26 00:08 | ED_ITS ---
HPI - Fall General Chief Complaint: Fall Stated Complaint: hip pain due to fall Time Seen by Provider: 09/25/21 23:15 Source: patient and EMS Mode of arrival: EMS Limitations: no limitations History of Present Illness HPI Narrative: 41 y/o female with schizoaffective disorder on Clozaril, morbid obesity, HTN, chronic hip pain presents to the ER via EMS from her [facility] [place] [facility] with acute on chronic right hip pain. She reports trying to get up out of bed and falling onto her right hip and side. Per EMS the staff at the [place] [facility] reports she did not fall. She was going to stand up reaching for her walker which she uses chronically from the sitting position and almost fell but did not actually fall. Patient denies this and states she fell onto her right hip. She did not hear any pops or snaps. She was able to get up and take a few steps with the assistance of her walker. She reports chronic hip pain and is post to be getting a surgery on her hip after an MRI at some point. No appointment have been scheduled. MD complaint: fall Onset (ago): minute(s) Fall from: standing Fall witnessed: yes, by living facility staff Place fall occurred: home Loss of consciousness: none Prolonged down time: no Symptoms prior to fall: none Context: tripped/slipped Location of injury: pelvis (Right hip) Severity: severe Severity scale (1-10): 9 Quality: sharp Associated symptoms (after fall): denies Related Data Home Medications Medication Instructions Recorded Confirmed paliperidone palmitate 234 mg/1.5 234 mg IM Q28D 04/11/21 06/18/21 mL intramuscular syringe ([employer]) lisinopril 10 mg tablet 1 tab PO DAILY 06/16/21 06/16/21 loratadine 10 mg tablet 1 tab PO DAILY 06/16/21 06/16/21 meloxicam 15 mg tablet 1 tab PO DAILY 06/16/21 06/16/21 nicotine (polacrilex) 2 mg gum 2 mg PO Q2-3H PRN 06/16/21 06/16/21 paliperidone palmitate 234 mg/1.5 234 mg IM Q4W 06/16/21 06/16/21 mL intramuscular syringe ([employer]) spironolactone 50 mg tablet 1 tab PO BID 06/16/21 06/16/21 Previous Rx's Medication Instructions Recorded benztropine 1 mg tablet 2 mg PO BID #120 tab 06/26/21 carbamazepine 100 mg 100 mg PO BID #60 tab 06/26/21 tablet,extended release,12 hr (Tegretol XR) carbamazepine 200 mg 200 mg PO BID #60 tab 06/26/21 tablet,extended release,12 hr clozapine 100 mg tablet 100 mg PO BEDTIME #7 tab 06/26/21 clozapine 50 mg tablet (Clozaril) 50 mg PO BID #7 tab 06/26/21 duloxetine 60 mg capsule,delayed 60 mg PO DAILY #30 cap 06/26/21 release ferrous sulfate 324 mg (65 mg 324 mg PO DAILY #30 tab 06/26/21 iron) tablet,delayed release furosemide 40 mg tablet 40 mg PO DAILY #30 tab 06/26/21 hydrocortisone 1 % topical ointment 1 appl TOPICAL BID #28.35 g 06/26/21 levothyroxine 100 mcg tablet 100 mcg PO DAILY@0630 #30 tab 06/26/21 (Synthroid) melatonin 3 mg tablet 6 mg PO BEDTIME #60 tab 06/26/21 nicotine 21 mg/24 hr daily 21 mg TRANSDERMAL DAILY #28 ea 06/26/21 transdermal patch olanzapine 10 mg tablet 10 mg PO BID PRN #60 tab 06/26/21 ropinirole 0.5 mg tablet 1.5 mg PO BEDTIME #90 tab 06/26/21 ibuprofen 800 mg tablet 800 mg PO Q8H PRN #14 tab 08/03/21 oxycodone 5 mg tablet 5 mg PO TID PRN #10 tab 08/03/21 tramadol 50 mg tablet 50 mg PO BID PRN #7 tab 09/26/21 Allergies Allergy/AdvReac Type Severity Reaction Status Date / Time banana [Banana] Allergy Severe ANAPHYLAXIS Verified 09/25/21 22:30 bee pollen [BEE STINGS] Allergy Unknown SWELLING Verified 09/25/21 22:30 cephalexin [Keflex] Allergy Unknown Unknown Verified 09/25/21 22:30 trazodone [TRAZODONE] Allergy Unknown BODY Verified 09/25/21 22:30 SITFFENS peanut [PEANUT] AdvReac Unknown TACHYCARDIA Verified 09/25/21 22:30 pistachio nut AdvReac Unknown TACHYCARDIA Verified 09/25/21 22:30 From KEFLEX Allergy Unknown UNKNOWN Uncoded 04/11/21 04:26 Review of Systems Review of Systems: Constitutional: No Fever, No Chills Cardiovascular: No Chest Pain, No SOB Gastrointestinal: No Nausea, No Vomiting, No Diarrhea, No abdominal Pain Musculoskeletal: + joint pain, No Myalgias Skin: No Skin Lesions, No rash Neuro: No Weakness, No Numbness, No Dizziness, No Headache Psych: No Anxiety/Panic, + Depression Heme/Lymph: No Bruising, No Lymphadenopathy Endocrine: No easy brusing PMFSH Past Medical History Medical History Asthma Bipolar disorder Chronic post-traumatic stress disorder (PTSD) Chronic post-traumatic stress disorder (PTSD) Class 3 obesity Diabetes HTN (hypertension) Hypothyroidism PCOS (polycystic ovarian syndrome) Polysubstance abuse Psychosis Schizoaffective disorder Substance abuse Suicidal ideation Social History Social History Household Members: Other House[facility] Housing: Other Housing Other:: [facility] Do you presently have visiting nurse or other home services: No Unable to assess alcohol history related to: Unknown Patient Tobacco Use Status: Current everyday Tobacco user Tobacco use type: Cigarette Cigarette Packs Per Day: 1 Cigarettes Per Day: 20.0 e-Cigarette/Vaping Use: Currently Using Second Hand Smoke Exposure: Yes Substance Use Type: Heroin Advance Directives: No Patient : No service: No Sexual orientation: Don't Know Physical Exam Vital Signs: Vital Signs: Last Vital Signs Temp 98.3 F 09/25/21 22:30 Pulse 98 09/25/21 22:30 Resp 18 09/25/21 22:30 BP 123/89 09/25/21 22:30 Pulse Ox 98 09/25/21 22:30 Body Mass Index 62.6 Appearance: Alert. Oriented X3. No acute distress. HEENT: normal inspection CVS: Normal heart rate and rhythm. Pulses normal. Respiratory: No respiratory distress. Skin: Skin warm and dry. Normal skin color. Normal skin turgor. No rashes. Extremities: Normal inspection of the bilateral legs, morbidly obese. Limited range of motion of bilateral hips due to pain and obesity. Mild soft tissue tenderness of the right lateral hip. Leg is not externally rotated or shortened.. No ecchymosis or gross deformity. Neuro: Oriented X 3. Bilateral LE weakness due to pain, gait not tested due to pain. Course Course Course Narrative: 41-year-old female with significant psychiatric history including schizoaffective disorder on caused oral and multiple medications history of violent behavior and aggressive behavior who presents to the ER with right hip pain after an apparent fall. Staff at the [place] [facility] reports she did not actually fall but the patient reports that she did. She reports severe hip pain that is acute on chronic. Will get x-rays for further evaluation. Will medicate with IM Toradol for now. She is minimally ambulatory at baseline due to her chronic pain and need for hip surgery. Reevaluation(s) Reevaluation #1: X-ray showing no acute fracture dislocation. There are severe degenerative changes of the right hip with superior joint space narrowing and near [id number] appearance. Discussed results with the patient and need for orthopedic follow-up. Will treat her acute pain with p.r.n. tramadol. She will continue to take around the clock ibuprofen and acetaminophen. She is stable for discharge home with supportive care and pain management with plan to follow-up with orthopedics as soon as possible. Critical Care Time Critical Care Time Critical Care Time: No Discharge Plan Discharge Clinical Impression: Hip pain, right Patient Disposition: Home, Self-Care Instructions: Hip Pain (ED) Additional Instructions: Your hip x-ray did not show any acute fractures. It did show severe degenerative changes with near [id number] appearance. Recommend following up with your adapted physical education specialist as soon as possible. The name and number of our orthopedic surgeon is below if he would like to make an appointment with them for evaluation. Take the prescribed medication as needed for pain. It is a narcotic medication and can be addictive. Do not drive after taking this medication. Recommend around the clock Tylenol and Motrin alternating for pain. If you develop new or worsening symptoms call 911 or come back to the ER for further evaluation. Prescriptions: New tramadol 50 mg tablet 50 mg PO BID PRN (Reason: pain) Qty: 7 RF: 0 No Action [employer] 234 mg/1.5 mL syringe 234 mg IM Q28D RF: 0 meloxicam 15 mg tablet 1 tab PO DAILY RF: 0 lisinopril 10 mg tablet 1 tab PO DAILY RF: 0 loratadine 10 mg tablet 1 tab PO DAILY RF: 0 spironolactone 50 mg tablet 1 tab PO BID RF: 0 [employer] 234 mg/1.5 mL syringe 234 mg IM Q4W RF: 0 nicotine (polacrilex) 2 mg gum 2 mg PO Q2-3H PRN (Reason: Nicotine Cravings) RF: 0 nicotine 21 mg/24 hr Patch 24 Hour 21 mg transdermal DAILY Qty: 28 RF: 0 ferrous sulfate 324 mg (65 mg iron) Tablet,Delayed Release (Dr/Ec) 324 mg PO DAILY Qty: 30 RF: 0 furosemide 40 mg Tablet 40 mg PO DAILY Qty: 30 RF: 0 clozapine 100 mg Tablet 100 mg PO BEDTIME Qty: 7 RF: 0 carbamazepine [Tegretol XR] 100 mg Tablet Extended Release 12 Hr 100 mg PO BID Qty: 60 RF: 0 olanzapine 10 mg Tablet 10 mg PO BID PRN (Reason: Anxiety, Agitation) Qty: 60 RF: 0 levothyroxine [Synthroid] 100 mcg Tablet 100 mcg PO DAILY@0630 Qty: 30 RF: 0 carbamazepine 200 mg Tablet Extended Release 12 Hr 200 mg PO BID Qty: 60 RF: 0 ropinirole 0.5 mg Tablet 1.5 mg PO BEDTIME Qty: 90 RF: 0 benztropine 1 mg Tablet 2 mg PO BID Qty: 120 RF: 0 duloxetine 60 mg Capsule,Delayed Release(Dr/Ec) 60 mg PO DAILY Qty: 30 RF: 0 melatonin 3 mg Tablet 6 mg PO BEDTIME Qty: 60 RF: 0 hydrocortisone 1 % Ointment 1 appl topical BID Qty: 28.35 RF: 0 clozapine [Clozaril] 50 mg tablet 50 mg PO BID Qty: 7 RF: 1 oxycodone 5 mg tablet 5 mg PO TID PRN (Reason: pain) Qty: 10 RF: 0 ibuprofen 800 mg tablet 800 mg PO Q8H PRN (Reason: pain) Qty: 14 RF: 0 Referrals: Trev Morris MD [Physician] - 1 week (Right hip pain with severe degenerative changes and [id number] appearance on XR)
--- NOTE | 2021-09-26 00:37 | PC.NURSE ---
CALLED 3 NUMBER FINAL GOT IN TOUCH WITH [employer] WHO WILL ATTEMPT TO ARRANGE A RIDE BACK HOME TO [facility].
[2021-09-26] MEDS: traMADoL HCL 50 MG TABLET PO (01:05)
--- NOTE | 2021-09-26 01:09 | PC.NURSE ---
[facility] ARRANGED A RIDE HOME FOR PT W/C TO WAITING ROOM REPORT CALLED TO [facility].
== END 2021-09-26 01:17 | disposition home or self-care (01) ==
PROVIDERS: Emergency Provider Internal Medicine
DX: M25.551 Pain in right hip (principal); I10 Essential (primary) hypertension; E11.9 Type 2 diabetes mellitus without complications; J45.909 Unspecified asthma, uncomplicated; F25.9 Schizoaffective disorder, unspecified; Z79.899 Other long term (current) drug therapy; Z91.81 History of falling
CPT/HCPCS: 73502; 96372; 99284; J1885

== ENCOUNTER 2021-10-02 09:27 | Outpatient (REF) | payer OTHER, SELFPAY ==
[2021-10-02 09:40] LABS: MANUAL DIFF FLAG NO
[2021-10-02 10:17] LABS: Basophils Percent Auto 0.4 % (0-2); Eosinophils Absolute Auto 0.1 X10*3/uL (0.0-0.4); Eosinophils Percent Auto 1.9 % (0-4); Hematocrit 43.1 % (37.0-47.0); Hemoglobin 14.8 g/dl (12.0-16.0); Imm Gran Abs Auto 0.04 X10*3/uL (0.00-0.03); Imm Gran Pct Auto 0.5 % (0.0-0.4); Lymphocytes Absolute Auto 1.7 X10*3/uL (1.2-4.9); Lymphocytes Percent Auto 22.8 % (20-40); Mean Corpuscular HGB Conc 34.3 g/dl (31.0-35.0); Mean Corpuscular Hemoglobin 31.6 pg (27.0-33.0); Mean Corpuscular Volume 92.1 fL (80.0-98.0); Mean Platelet Volume 9.1 fL (9.4-12.3); Monocytes Absolute Auto 0.8 X10*3/uL (0.1-1.2); Monocytes Percent Auto 10.9 % (2-11); Neut%MD 63.5 %; Neutrophils Absolute Auto 4.7 x10*3/uL (2.0-8.3); Neutrophils Percent Auto 63.5 % (45-73); Platelet Count 369 X10*3/uL (160-400); Red Blood Count 4.68 X10*6/uL (4.20-5.50); Red Cell Distribution Width 13.8 % (11.0-16.0); WBCANC 7.3 X10*3/uL; White Blood Count 7.3 X10*3/uL (4.8-10.8)
== END 2021-10-02 09:28 | disposition home or self-care (01) ==
LOC: HO.LABR 09:27
PROVIDERS: Visit Provider Psychiatry & Neurology Psychiatry
DX: Z79.899 Other long term (current) drug therapy (principal)
CPT/HCPCS: 36415; 85025

== ENCOUNTER 2021-10-03 19:51 | Emergency (ER) | payer OTHER, SELFPAY ==
[2021-10-03 20:12] VITALS: BP 100/60; PULSE 104; RESP 20; TEMP 36.6; O2SAT 97; BMI 62.6
[2021-10-03 21:27] VITALS: BP 116/71; PULSE 93; RESP 18; TEMP 36.8; O2SAT 95
--- NOTE | 2021-10-03 21:28 | PC.NURSE ---
patient a&ox3, vss, pt awaiting ed provider, c/o pain in hips back, will continue to monitor.
--- NOTE | 2021-10-03 21:59 | ED.GENADULT ---
HPI - General Adult General Chief complaint: Extremity Injury, Lower Stated complaint: HIP PAIN NO INJURY PER EMS Time Seen by Provider: 10/03/21 21:58 Source: patient Limitations: no limitations History of Present Illness HPI narrative: This is a 41-year-old female who complains of pain to her hips. The patient was seen here on the for right hip pain and had an x-ray which showed degenerative changes. The patient was referred to orthopedics and has appointment for early October. Patient states that she was prescribed ibuprofen and tramadol that she was only prescribed a limited number of tramadol. She has not been able to get into her primary care physician. Patient came in by ambulance and is requesting shot as well as pain pills. She is able to ambulate, with pain. Pain is achy,, moderately severe Related Data Home Medications Medication Instructions Recorded Confirmed paliperidone palmitate 234 mg/1.5 234 mg IM Q28D 04/11/21 06/18/21 mL intramuscular syringe ([employer]) lisinopril 10 mg tablet 1 tab PO DAILY 06/16/21 06/16/21 loratadine 10 mg tablet 1 tab PO DAILY 06/16/21 06/16/21 meloxicam 15 mg tablet 1 tab PO DAILY 06/16/21 06/16/21 nicotine (polacrilex) 2 mg gum 2 mg PO Q2-3H PRN 06/16/21 06/16/21 paliperidone palmitate 234 mg/1.5 234 mg IM Q4W 06/16/21 06/16/21 mL intramuscular syringe ([employer]) spironolactone 50 mg tablet 1 tab PO BID 06/16/21 06/16/21 Previous Rx's Medication Instructions Recorded benztropine 1 mg tablet 2 mg PO BID #120 tab 06/26/21 carbamazepine 100 mg 100 mg PO BID #60 tab 06/26/21 tablet,extended release,12 hr (Tegretol XR) carbamazepine 200 mg 200 mg PO BID #60 tab 06/26/21 tablet,extended release,12 hr clozapine 100 mg tablet 100 mg PO BEDTIME #7 tab 06/26/21 clozapine 50 mg tablet (Clozaril) 50 mg PO BID #7 tab 06/26/21 duloxetine 60 mg capsule,delayed 60 mg PO DAILY #30 cap 06/26/21 release ferrous sulfate 324 mg (65 mg 324 mg PO DAILY #30 tab 06/26/21 iron) tablet,delayed release furosemide 40 mg tablet 40 mg PO DAILY #30 tab 06/26/21 hydrocortisone 1 % topical ointment 1 appl TOPICAL BID #28.35 g 06/26/21 levothyroxine 100 mcg tablet 100 mcg PO DAILY@0630 #30 tab 06/26/21 (Synthroid) melatonin 3 mg tablet 6 mg PO BEDTIME #60 tab 06/26/21 nicotine 21 mg/24 hr daily 21 mg TRANSDERMAL DAILY #28 ea 06/26/21 transdermal patch olanzapine 10 mg tablet 10 mg PO BID PRN #60 tab 06/26/21 ropinirole 0.5 mg tablet 1.5 mg PO BEDTIME #90 tab 06/26/21 ibuprofen 800 mg tablet 800 mg PO Q8H PRN #14 tab 08/03/21 oxycodone 5 mg tablet 5 mg PO TID PRN #10 tab 08/03/21 tramadol 50 mg tablet 50 mg PO BID PRN #7 tab 09/26/21 oxycodone 10 mg tablet 10 mg PO TID PRN #10 tab 10/03/21 Allergies Allergy/AdvReac Type Severity Reaction Status Date / Time banana [Banana] Allergy Severe ANAPHYLAXIS Verified 09/25/21 22:30 bee pollen [BEE STINGS] Allergy Unknown SWELLING Verified 09/25/21 22:30 cephalexin [Keflex] Allergy Unknown Unknown Verified 09/25/21 22:30 trazodone [TRAZODONE] Allergy Unknown BODY Verified 09/25/21 22:30 SITFFENS peanut [PEANUT] AdvReac Unknown TACHYCARDIA Verified 09/25/21 22:30 pistachio nut AdvReac Unknown TACHYCARDIA Verified 09/25/21 22:30 From KEFLEX Allergy Unknown UNKNOWN Uncoded 04/11/21 04:26 Review of Systems Constitutional: Constitutional: Denies fever(s) Musculoskeletal: Musculoskeletal: Reports arthralgias PMFSH Past Medical History Medical History Asthma Bipolar disorder Chronic post-traumatic stress disorder (PTSD) Chronic post-traumatic stress disorder (PTSD) Class 3 obesity Diabetes HTN (hypertension) Hypothyroidism PCOS (polycystic ovarian syndrome) Polysubstance abuse Psychosis Schizoaffective disorder Substance abuse Suicidal ideation Social History Social History Household Members: Other Household Members Other:: [facility] Housing: Other Housing Other:: [facility] Do you presently have visiting nurse or other home services: No Unable to assess alcohol history related to: Unknown Patient Tobacco Use Status: Current everyday Tobacco user Tobacco use type: Cigarette Cigarette Packs Per Day: 1 Cigarettes Per Day: 20.0 e-Cigarette/Vaping Use: Currently Using Second Hand Smoke Exposure: Yes Substance Use Type: Heroin Advance Directives: No Advance Directives Information Provided: No Patient : No service: No Sexual orientation: Don't Know Physical Exam Vital Signs: Vital Signs: Last Vital Signs Temp 98.2 F 10/03/21 21:27 Pulse 93 10/03/21 21:27 Resp 18 10/03/21 21:27 BP 116/71 10/03/21 21:27 Pulse Ox 95 10/03/21 21:27 Body Mass Index 62.6 Resp: Effort & Inspection: normal respiratory effort Auscultation: clear to auscultation bilaterally Cardio: Rate: regular rate Rhythm: regular rhythm Heart sounds: S1 normal heart sound present and S2 normal heart sound present Medical Decision Making MDM Narrative Medical decision making narrative: Patient with schizoaffective disorder, called an ambulance for chronic pain, appears manipulative, was given orthopedic follow-up on her last visit. Will treat with Toradol and oxycodone to last for a few days. Discharge Plan Discharge Clinical Impression: Degenerative joint disease (DJD) of hip Patient Disposition: Home, Self-Care Instructions: Osteoarthritis (ED) Additional Instructions: Follow-up with orthopedics as previously referred. Follow-up with primary care physician. Prescriptions: New oxycodone 10 mg tablet 10 mg PO TID PRN (Reason: pain) Qty: 10 RF: 0 No Action [employer]ga [employer] 234 mg/1.5 mL syringe 234 mg IM Q28D RF: 0 meloxicam 15 mg tablet 1 tab PO DAILY RF: 0 lisinopril 10 mg tablet 1 tab PO DAILY RF: 0 loratadine 10 mg tablet 1 tab PO DAILY RF: 0 spironolactone 50 mg tablet 1 tab PO BID RF: 0 [employer] 234 mg/1.5 mL syringe 234 mg IM Q4W RF: 0 nicotine (polacrilex) 2 mg gum 2 mg PO Q2-3H PRN (Reason: Nicotine Cravings) RF: 0 nicotine 21 mg/24 hr Patch 24 Hour 21 mg transdermal DAILY Qty: 28 RF: 0 ferrous sulfate 324 mg (65 mg iron) Tablet,Delayed Release (Dr/Ec) 324 mg PO DAILY Qty: 30 RF: 0 furosemide 40 mg Tablet 40 mg PO DAILY Qty: 30 RF: 0 clozapine 100 mg Tablet 100 mg PO BEDTIME Qty: 7 RF: 0 carbamazepine [Tegretol XR] 100 mg Tablet Extended Release 12 Hr 100 mg PO BID Qty: 60 RF: 0 olanzapine 10 mg Tablet 10 mg PO BID PRN (Reason: Anxiety, Agitation) Qty: 60 RF: 0 levothyroxine [Synthroid] 100 mcg Tablet 100 mcg PO DAILY@0630 Qty: 30 RF: 0 carbamazepine 200 mg Tablet Extended Release 12 Hr 200 mg PO BID Qty: 60 RF: 0 ropinirole 0.5 mg Tablet 1.5 mg PO BEDTIME Qty: 90 RF: 0 benztropine 1 mg Tablet 2 mg PO BID Qty: 120 RF: 0 duloxetine 60 mg Capsule,Delayed Release(Dr/Ec) 60 mg PO DAILY Qty: 30 RF: 0 melatonin 3 mg Tablet 6 mg PO BEDTIME Qty: 60 RF: 0 hydrocortisone 1 % Ointment 1 appl topical BID Qty: 28.35 RF: 0 clozapine [Clozaril] 50 mg tablet 50 mg PO BID Qty: 7 RF: 1 oxycodone 5 mg tablet 5 mg PO TID PRN (Reason: pain) Qty: 10 RF: 0 ibuprofen 800 mg tablet 800 mg PO Q8H PRN (Reason: pain) Qty: 14 RF: 0 tramadol 50 mg tablet 50 mg PO BID PRN (Reason: pain) Qty: 7 RF: 0 Interventions: ED Discharge Assessment Last Done: 10/03/21 22:27 Discharge Date/Time: 10/03/21 22:27
[2021-10-03] MEDS: Ketorolac Tromethamine 60 MG/2 ML VIAL IM (22:09)
[2021-10-03] MEDS: oxyCODONE HCl Immed Release 5 MG TABLET 10 MG PO (22:13)
--- NOTE | 2021-10-03 22:17 | PC.NURSE ---
patient a&ox3, vss, pt medicated for pain per order, pt states she doesnt need to speak with care team, pt dc papers up, will call assisted
--- NOTE | 2021-10-03 22:18 | PC.NURSE ---
correction called, they will not be able to pick her up until midnight, will notify charge.
== END 2021-10-03 22:27 | disposition home or self-care (01) ==
PROVIDERS: Emergency Provider Emergency Medicine
DX: M16.10 Unilateral primary osteoarthritis, unspecified hip (principal); E11.9 Type 2 diabetes mellitus without complications; I10 Essential (primary) hypertension; J45.909 Unspecified asthma, uncomplicated
CPT/HCPCS: 96372; 99284; J1885

== ENCOUNTER 2021-10-11 23:37 | Emergency (ER) | payer OTHER, SELFPAY ==
[2021-10-11 23:45] VITALS: PULSE 89; RESP 18; TEMP 37.7; O2SAT 99; BMI 62.6
--- NOTE | 2021-10-11 23:56 | ED.PSYCH ---
HPI - Psych General Chief Complaint: Psychiatric Symptoms Stated Complaint: SI w/ plan Source: patient and EMS Mode of arrival: EMS Limitations: no limitations History of Present Illness HPI Narrative: 41-year-old female presents via EMS from a senior living after making a suicidal statement to overdose on medications. Patient is well-known to this facility. MD complaint: suicidal ideation and feels depressed Onset (ago): unknown Duration: constant History of same: Yes Relieving factors: none Context: significant life stressor Associated psychiatric symptoms: depression and suicidal ideation Associated symptoms: denies other symptoms Treatments prior to arrival: none If self harm: admits thoughts of self harm and has plan Related Data Home Medications Medication Instructions Recorded Confirmed benztropine 2 mg tablet 1 tab PO BID 10/11/21 10/12/21 carbamazepine 100 mg 1 tab PO DAILY 10/11/21 10/12/21 tablet,extended release,12 hr carbamazepine 200 mg 1 tab PO BID 10/11/21 10/12/21 tablet,extended release,12 hr clozapine 100 mg tablet 1 tab PO BEDTIME 10/11/21 10/12/21 clozapine 50 mg tablet 1 tab PO BEDTIME 10/11/21 10/12/21 duloxetine 60 mg capsule,delayed 1 cap PO QAM 10/11/21 10/12/21 release lisinopril 10 mg tablet 1 tab PO DAILY 10/11/21 10/12/21 loratadine 10 mg tablet 1 tab PO DAILY 10/11/21 10/12/21 melatonin 3 mg tablet 6 mg PO BEDTIME 10/11/21 10/12/21 meloxicam 15 mg tablet 1 tab PO DAILY 10/11/21 10/12/21 olanzapine 10 mg tablet 1 tab PO BID PRN 10/11/21 10/12/21 furosemide 40 mg tablet 1 tab PO DAILY 10/12/21 10/12/21 levothyroxine 100 mcg tablet 1 tab PO DAILY 10/12/21 10/12/21 paliperidone palmitate 234 mg/1.5 234 mg IM Q4W 10/12/21 10/12/21 mL intramuscular syringe (Invega Sustenna) ropinirole 0.5 mg tablet 1.5 mg PO BEDTIME 10/12/21 10/12/21 Allergies Allergy/AdvReac Type Severity Reaction Status Date / Time banana [Banana] Allergy Severe ANAPHYLAXIS Verified 09/25/21 22:30 bee pollen [BEE STINGS] Allergy Unknown SWELLING Verified 09/25/21 22:30 cephalexin [Keflex] Allergy Unknown Unknown Verified 09/25/21 22:30 trazodone [TRAZODONE] Allergy Unknown BODY Verified 09/25/21 22:30 SITFFENS peanut [PEANUT] AdvReac Unknown TACHYCARDIA Verified 09/25/21 22:30 pistachio nut AdvReac Unknown TACHYCARDIA Verified 09/25/21 22:30 From KEFLEX Allergy Unknown UNKNOWN Uncoded 04/11/21 04:26 Review of Systems Review of Systems: Constitutional: No Fever, No Chills ENT/Mouth: No Ear Pain, No Nasal Congestion, No sore throat Eyes: No Eye Pain, No Swelling, No Redness Cardiovascular: No Chest Pain, No SOB Respiratory: No Cough, No Sputum, No Dyspnea Gastrointestinal: No Nausea, No Vomiting, No Diarrhea, No Hematochezia, No Melena Genitourinary: No Dysuria, No Urinary Frequency, No Hematuria Musculoskeletal: No Myalgias Skin: No Skin Lesions, No rash Neuro: No Weakness, No Numbness, No Paresthesias, No Dizziness, No Headache Psych: positive Anxiety, positive Depression, positive SI Heme/Lymph: No Lymphadenopathy Endocrine: No Polyuria, No Polydipsia Yes all other systems are reviewed and are negative PMFSH Past Medical History Attestation statement: The following information was validated with the patient. Source: old records reviewed Medical History Asthma Bipolar disorder Chronic post-traumatic stress disorder (PTSD) Chronic post-traumatic stress disorder (PTSD) Class 3 obesity Diabetes HTN (hypertension) Hypothyroidism PCOS (polycystic ovarian syndrome) Polysubstance abuse Psychosis Schizoaffective disorder Substance abuse Suicidal ideation Social History Social History Household Members: Other Household Members Other:: senior living Housing: Other Housing Other:: senior living Do you presently have visiting nurse or other home services: No Unable to assess alcohol history related to: Unknown Patient Tobacco Use Status: Current everyday Tobacco user Tobacco use type: Cigarette Cigarette Packs Per Day: 1 Cigarettes Per Day: 20.0 e-Cigarette/Vaping Use: Currently Using Second Hand Smoke Exposure: Yes Substance Use Type: Heroin Advance Directives: No Patient : No service: No Sexual orientation: Don't Know Physical Exam Vital Signs: Vital Signs: Last Vital Signs Temp 98.0 F 10/12/21 00:16 Pulse 89 10/12/21 00:16 Resp 18 10/12/21 00:16 BP 88/73 L 10/12/21 00:16 Pulse Ox 99 10/12/21 00:16 Body Mass Index 62.6 Appearance: Alert. Oriented X3. Moderate psychiatric distress. Morbidly obese. Eyes: Pupils equal, round and reactive to light. ENT: Pharynx normal. moist mucous membranes. Neck: Normal inspection. Neck supple. CVS: Normal heart rate and rhythm. Pulses normal. Respiratory: No respiratory distress. Breath sounds normal. Abdomen: Soft and nontender. Skin: Skin warm and dry. Normal skin color. Normal skin turgor. Extremities: No lower extremity edema. Gait well-balanced well coordinated. Neuro: No motor deficit. No sensory deficit. Cranial nerves 2-12 intact Course Course Course Narrative: 41-year-old female presents from a senior living for suicidal ideation. Has multiple complaints. States that she has issues because she is obese. Feels depressed and suicidal because it is the anniversary of her brother's . Patient is asking for pain medication, was given a prescription for oxycodone 10 mg 3 times a day on 09/25/2021. she is asking for more pain medication at this time. I did discuss in detail that I would not be giving her any more on narcotics at this time I do not feel that they are indicated. Patient states that she is suicidal because I am not giving her any more narcotics. 12:54 a.m. patient noted to be COVID positive. O2 sat 99% on room air, lung sounds clear to auscultation all lobes. Even unlabored respirations. No further intervention needed at this time. BEAN also positive for cocaine and marijuana. Physician observation started at this time. MDM - Psych Differential Diagnosis Differential diagnosis: Likely acute psychosis, suicidal ideation, bipolar disorder, depression, substance abuse and mood disorder Medical Records Attestation: I reviewed the patient's medical records. Lab Data Attestation: I reviewed the patient's lab results. Labs: Lab Results 10/12/21 10/12/21 10/12/21 Range/Units 00:22 00:23 00:23 Urine Color YELLOW Urine Appearance CLEAR Urine pH 6.0 (5.0-8.0) Ur Specific [place] 1.025 (1.005-1.025) Urine Protein NEG (NEG-TRACE) MG/DL Urine Glucose (UA) NEG (NEG) MG/DL Urine Ketones 5 (NEG) MG/DL Urine Blood NEG (NEG) Urine Nitrite NEG (NEG) Ur Leukocyte Esterase NEG (NEG) Urine RBC 0 (0) /HPF Urine WBC 1-4 (0-4) /HPF Ur Squamous Epith Cells 2+ /LPF Urine Bacteria 1+ /LPF Urine Mucus 1+ /LPF Urine Opiates Screen Not Detected (Not Detect) Urine Fentanyl Screen Not Detected (Not Detect) Ur Barbiturates Screen Not Detected (Not Detect) Ur Phencyclidine Scrn Not Detected (Not Detect) Ur Amphetamines Screen Not Detected (Not Detect) U Benzodiazepines Scrn Not Detected (Not Detect) Urine Cocaine Screen POSITIVE H (Not Detect) U Marijuana (THC) Screen POSITIVE H (Not Detect) COVID-19 (ROCKY) Positive A (Negative) COVID-19 Clin Com See Note Discharge Plan Discharge Clinical Impression: Suicidal ideation, COVID-19, Substance abuse Schizoaffective disorder Qualifiers: Schizoaffective disorder type: bipolar Qualified Code(s): F25.0 - Schizoaffective disorder, bipolar type Drug-induced psychotic disorder Qualifiers: Complication of substance-induced condition: with unspecified complication Qualified Code(s): F19.959 - Other psychoactive substance use, unspecified with psychoactive substance-induced psychotic disorder, unspecified Patient Disposition: Home, Self-Care Instructions: Covid-19 Viral Syndrome and Novel Coronavirus (ED) Hey/Ath, Schizoaffective Disorder (ED), Polysubstance Abuse (ED) Additional Instructions: please follow-up outpatient psychiatry as scheduled. You tested positive for COVID-19. Please maintain social isolation per State and Federal guidelines. Is your responsibility to maintain these guidelines. Thank you for choosing this emergency department for evaluation. Please follow-up with primary care physician as needed. Return to the emergency department for any new, concerning, or worsening symptoms. Prescriptions: No Action clozapine 100 mg tablet 1 tab PO BEDTIME RF: 0 meloxicam 15 mg tablet 1 tab PO DAILY RF: 0 carbamazepine 100 mg tablet extended release 12 hr 1 tab PO DAILY RF: 0 olanzapine 10 mg tablet 1 tab PO BID PRN (Reason: psychosis) RF: 0 melatonin 3 mg tablet 6 mg PO BEDTIME RF: 0 carbamazepine 200 mg tablet extended release 12 hr 1 tab PO BID RF: 0 lisinopril 10 mg tablet 1 tab PO DAILY RF: 0 benztropine 2 mg tablet 1 tab PO BID RF: 0 loratadine 10 mg tablet 1 tab PO DAILY RF: 0 duloxetine 60 mg capsule,delayed release(DR/EC) 1 cap PO QAM RF: 0 clozapine 50 mg tablet 1 tab PO BEDTIME RF: 0 furosemide 40 mg tablet 1 tab PO DAILY RF: 0 levothyroxine 100 mcg tablet 1 tab PO DAILY RF: 0 Invega Sustenna 234 mg/1.5 mL syringe 234 mg IM Q4W RF: 0 ropinirole 0.5 mg tablet 1.5 mg PO BEDTIME RF: 0
[2021-10-12 00:16] VITALS: BP 88/73; PULSE 89; RESP 18; TEMP 36.7; O2SAT 99
[2021-10-12 00:36] LABS: Appearance Urine CLEAR; Color Urine YELLOW; Glucose Urine UA NEG (NEG); Leukocyte Esterase Urine NEG (NEG); Nitrite Urine NEG (NEG); Specific Gravity - Urine 1.025 (1.005-1.025); Urine Blood NEG (NEG); Urine Ketones 5 MG/DL (NEG); Urine Protein NEG (NEG-TRACE)
[2021-10-12 00:37] LABS: UACC CULT NO
[2021-10-12 00:42] LABS: Bacteria Urine 1+ /LPF; Mucus Urine 1+ /LPF; RBC Urine 0 /HPF (0); Squamous Epithelial Cell Urine 2+ /LPF
[2021-10-12 00:49] LABS: IDNOW Serial# 9DD0AD1C
[2021-10-12 00:51] LABS: COVID-19 Test Positive (Negative)
[2021-10-12 00:52] LABS: Amphetamine Screen Urine Not Detected (Not Detect); Barbiturates, Urine Not Detected (Not Detect); Benzodiazepines Screen Urine Not Detected (Not Detect); Cannabinoid Screen Urine POSITIVE (Not Detect); Cocaine Screen Urine POSITIVE (Not Detect); Fentanyl, urine Not Detected (Not Detect); Opiate Screen Urine Not Detected (Not Detect); Phencyclidine Screen Urine Not Detected (Not Detect)
--- NOTE | 2021-10-12 00:59 | PC.NURSE ---
N referral competed and confirmed no ETA at this time. Med rec completed by speaking with nursing home staff Millie at [phone] and comparing with pharmacy claim history.
--- NOTE | 2021-10-12 01:04 | MHC.CARE ---
[facility] contacted re: covid positive status, information relayed to overnight staffRosario.
[2021-10-12 02:34] LABS: Basophils Percent Auto 0.4 % (0-2); Eosinophils Absolute Auto 0.2 X10*3/uL (0.0-0.4); Eosinophils Percent Auto 2.1 % (0-4); Hematocrit 38.6 % (37.0-47.0); Hemoglobin 13.2 g/dl (12.0-16.0); Imm Gran Abs Auto 0.03 X10*3/uL (0.00-0.03); Imm Gran Pct Auto 0.4 % (0.0-0.4); Lymphocytes Percent Auto 23.9 % (20-40); Mean Corpuscular HGB Conc 34.2 g/dl (31.0-35.0); Mean Corpuscular Hemoglobin 32.2 pg (27.0-33.0); Mean Corpuscular Volume 94.1 fL (80.0-98.0); Mean Platelet Volume 8.7 fL (9.4-12.3); Monocytes Absolute Auto 0.6 X10*3/uL (0.1-1.2); Monocytes Percent Auto 7.4 % (2-11); Neutrophils Absolute Auto 5.5 x10*3/uL (2.0-8.3); Neutrophils Percent Auto 65.8 % (45-73); Platelet Count 274 X10*3/uL (160-400); Red Cell Distribution Width 14.4 % (11.0-16.0); White Blood Count 8.4 X10*3/uL (4.8-10.8)
[2021-10-12 02:35] LABS: MANUAL DIFF FLAG NO
[2021-10-12 02:57] LABS: Ethanol < 10 mg/dL
[2021-10-12 02:59] LABS: Anion Gap 14 (12-20); Blood Urea Nitrogen 11 mg/dL (9-16); Calcium 8.9 mg/dL (8.4-10.2); Carbon Dioxide 25 mmol/L (22-29); Chloride 92 mmol/L (96-108); Creatinine Clr Calc Pharmacy 162.9; Estimated Glomerular Filt Rate > 60; Glucose Random 111 mg/dL (60-115); Potassium 4.3 mmol/L (3.3-5.1); Sodium 127 mmol/L (135-145)
[2021-10-12 07:24] VITALS: BP 109/68; PULSE 91; RESP 18; TEMP 37.2; O2SAT 95
[2021-10-12] MEDS: Levothyroxine Sodium 100 MCG TABLET PO (08:06)
--- NOTE | 2021-10-12 08:15 | PC.NURSE ---
pt refused to answer any questions relating to safety screening, psychiatric symptoms screening and [place]-suicide screening. pt states i am not answering those questions
[2021-10-12] MEDS: carBAMazepine ER 200 MG TAB.ER.12H PO (08:48)
[2021-10-12] MEDS: carBAMazepine ER 100 MG TAB.ER.12H PO (08:48)
[2021-10-12] MEDS: Loratadine 10 MG TABLET PO (08:48)
[2021-10-12] MEDS: NaPROXEN 500 MG TABLET PO (08:49)
[2021-10-12] MEDS: Furosemide 40 MG TABLET PO (08:49)
[2021-10-12] MEDS: Benztropine Mesylate 1 MG TABLET 2 MG PO (08:49)
[2021-10-12] MEDS: DULoxetine HCl 60 MG CAPSULE.DR PO (08:49)
[2021-10-12 08:50] VITALS: BP 137/72; PULSE 95
[2021-10-12] MEDS: lisinopriL 10 MG TABLET PO (08:50)
[2021-10-12 11:18] VITALS: BP 128/79; PULSE 86; RESP 16; TEMP 37.1; O2SAT 96
--- NOTE | 2021-10-12 11:34 | PC.NURSE ---
pt c/o increase anxiety and wanting to leave . aware. chanellen to bekah
[2021-10-12] MEDS: LORazepam 1 MG TABLET 2 MG PO (11:38)
--- NOTE | 2021-10-12 12:58 | PC.NURSE ---
this rn spoke to tommy monique from pt's [facility]. mr monique states that if pt is not in need of an in pt psych bed, she is able to return to the [facility]. chanellen to be informed.
[2021-10-12 13:35] VITALS: BP 110/62; PULSE 103; RESP 18; TEMP 36.7; O2SAT 96
== END 2021-10-12 16:30 | disposition home or self-care (01) ==
PROVIDERS: Nurse Practitioner Family; Emergency Provider Emergency Medicine
DX: U07.1 COVID-19 (principal); R45.851 Suicidal ideations; F25.0 Schizoaffective disorder, bipolar type; F19.959 Other psychoactive substance use, unspecified with psychoactive substance-induced psychotic disorder, unspecified; F32.A Depression, unspecified; F41.9 Anxiety disorder, unspecified; E66.9 Obesity, unspecified; F43.12 Post-traumatic stress disorder, chronic; F14.10 Cocaine abuse, uncomplicated; F12.10 Cannabis abuse, uncomplicated; I10 Essential (primary) hypertension; E11.9 Type 2 diabetes mellitus without complications; F17.200 Nicotine dependence, unspecified, uncomplicated; Z79.899 Other long term (current) drug therapy; Z72.89 Other problems related to lifestyle; Z63.4 Disappearance and death of family member
CPT/HCPCS: 36415; 80048; 80307; 81001; 82077; 85025; 87635; 99284; 99285

== ENCOUNTER 2021-10-23 09:55 | Outpatient (REF) | payer OTHER, SELFPAY ==
[2021-10-23 10:25] LABS: MANUAL DIFF FLAG NO
[2021-10-23 11:05] LABS: Basophils Percent Auto 0.4 % (0-2); Eosinophils Absolute Auto 0.1 X10*3/uL (0.0-0.4); Eosinophils Percent Auto 1.1 % (0-4); Hematocrit 42.3 % (37.0-47.0); Hemoglobin 14.5 g/dl (12.0-16.0); Imm Gran Abs Auto 0.04 X10*3/uL (0.00-0.03); Imm Gran Pct Auto 0.5 % (0.0-0.4); Lymphocytes Absolute Auto 1.4 X10*3/uL (1.2-4.9); Lymphocytes Percent Auto 16.6 % (20-40); Mean Corpuscular HGB Conc 34.3 g/dl (31.0-35.0); Mean Corpuscular Hemoglobin 31.9 pg (27.0-33.0); Mean Platelet Volume 9.1 fL (9.4-12.3); Monocytes Absolute Auto 0.9 X10*3/uL (0.1-1.2); Monocytes Percent Auto 10.4 % (2-11); Neutrophils Absolute Auto 5.9 x10*3/uL (2.0-8.3); Platelet Count 366 X10*3/uL (160-400); Red Blood Count 4.55 X10*6/uL (4.20-5.50); Red Cell Distribution Width 14.2 % (11.0-16.0); WBCANC 8.3 X10*3/uL; White Blood Count 8.3 X10*3/uL (4.8-10.8)
== END 2021-10-23 09:56 | disposition home or self-care (01) ==
LOC: HO.LABR 09:55
PROVIDERS: Visit Provider Psychiatry & Neurology Psychiatry
DX: Z79.899 Other long term (current) drug therapy (principal)
CPT/HCPCS: 36415; 85025

== ENCOUNTER → 2021-10-26 10:50 | Outpatient (BNVA) | payer OTHER, SELFPAY | PROVIDERS: Visit Provider Physician Assistant | DX: M16.11 Unilateral primary osteoarthritis, right hip (principal) | CPT/HCPCS: 99202 ==

== ENCOUNTER 2021-11-11 12:54 | Outpatient (REF) | payer OTHER, SELFPAY ==
--- NOTE | ~2021-11-11 | FL_ITS ---
EXAMINATION: XR ARTHROGRAM HIP, RIGHT CLINICAL INFORMATION: Right hip pain COMPARISON: Plain film study of September 25, 2021 TECHNIQUE: Chest x-ray guided hip arthrogram with steroid injection. FINDINGS: Informed consent was obtained from the patient prior to the procedure. During this process, the procedure and potential alternatives were explained, along with the intended outcome and benefits. The risks of the procedure, as well as the risk of not doing the procedure, were discussed. The patient was given the opportunity to ask questions regarding the procedure and appeared competent to make medical decisions. A signed consent form which documents this discussion was placed in the medical record. . Using sterile technique and fluoroscopic guidance a 21-gauge needle was directed down onto the right femoral neck and small amount of contrast injected demonstrating intra-articular positioning of the needle. A mixture of 3 mL of Sensorcaine with 80 mg of Depo-Medrol was then instilled into the joint space. Patient tolerated procedure without difficulty. FLUOROSCOPY TIME: 0.5 minutes DOSE AREA PRODUCT: 3.550 Gy-cm2 (marin-centimeter squared) FL/FL arthrogram hip RT IMPRESSION: Right hip steroid injection as described.
[2021-11-11 13:13] LABS: MANUAL DIFF FLAG NO
[2021-11-11 13:23] LABS: Basophils Percent Auto 0.4 % (0-2); Eosinophils Absolute Auto 0.1 X10*3/uL (0.0-0.4); Eosinophils Percent Auto 0.8 % (0-4); Hematocrit 43.5 % (37.0-47.0); Imm Gran Abs Auto 0.02 X10*3/uL (0.00-0.03); Imm Gran Pct Auto 0.3 % (0.0-0.4); Lymphocytes Absolute Auto 1.5 X10*3/uL (1.2-4.9); Lymphocytes Percent Auto 19.2 % (20-40); Mean Corpuscular HGB Conc 34.5 g/dl (31.0-35.0); Mean Corpuscular Hemoglobin 32.3 pg (27.0-33.0); Mean Corpuscular Volume 93.8 fL (80.0-98.0); Monocytes Absolute Auto 0.7 X10*3/uL (0.1-1.2); Monocytes Percent Auto 8.5 % (2-11); Neut%MD 70.8 %; Neutrophils Absolute Auto 5.7 x10*3/uL (2.0-8.3); Neutrophils Percent Auto 70.8 % (45-73); Platelet Count 349 X10*3/uL (160-400); Red Blood Count 4.64 X10*6/uL (4.20-5.50); Red Cell Distribution Width 14.1 % (11.0-16.0)
== END 2021-11-11 12:55 | disposition home or self-care (01) ==
LOC: HO.XRAY 12:54
PROVIDERS: Psychiatry & Neurology Psychiatry; Visit Provider Physician Assistant
DX: M16.11 Unilateral primary osteoarthritis, right hip (principal); Z79.899 Other long term (current) drug therapy
CPT/HCPCS: 27093; 36415; 73525; 85025

== ENCOUNTER 2021-11-27 12:03 | Outpatient (REF) | payer OTHER, SELFPAY ==
[2021-11-27 12:22] LABS: MANUAL DIFF FLAG NO
[2021-11-27 12:37] LABS: Basophils Percent Auto 0.3 % (0-2); Eosinophils Absolute Auto 0.1 X10*3/uL (0.0-0.4); Eosinophils Percent Auto 0.7 % (0-4); Hematocrit 42.2 % (37.0-47.0); Hemoglobin 14.5 g/dl (12.0-16.0); Imm Gran Abs Auto 0.03 X10*3/uL (0.00-0.03); Imm Gran Pct Auto 0.3 % (0.0-0.4); Lymphocytes Absolute Auto 1.4 X10*3/uL (1.2-4.9); Lymphocytes Percent Auto 15.7 % (20-40); Mean Corpuscular HGB Conc 34.4 g/dl (31.0-35.0); Mean Corpuscular Hemoglobin 32.2 pg (27.0-33.0); Mean Corpuscular Volume 93.6 fL (80.0-98.0); Mean Platelet Volume 8.9 fL (9.4-12.3); Monocytes Percent Auto 10.4 % (2-11); Neutrophils Absolute Auto 6.6 x10*3/uL (2.0-8.3); Neutrophils Percent Auto 72.6 % (45-73); Platelet Count 374 X10*3/uL (160-400); Red Blood Count 4.51 X10*6/uL (4.20-5.50); Red Cell Distribution Width 13.7 % (11.0-16.0); White Blood Count 9.1 X10*3/uL (4.8-10.8)
== END 2021-11-27 12:04 | disposition home or self-care (01) ==
LOC: HO.LABR 12:03
PROVIDERS: Visit Provider Psychiatry & Neurology Psychiatry
DX: Z79.899 Other long term (current) drug therapy (principal)
CPT/HCPCS: 36415; 85025

== ENCOUNTER 2021-11-27 12:22 | Outpatient (RCR) | payer OTHER, SELFPAY ==
[2021-11-27 13:02] VITALS: BP 130/74; PULSE 95
--- NOTE | 2021-11-27 13:51 | MHC.PT.EP ---
[facility] [place] Office [place] Office [place] Office [address] Yu [address] [phone] F: [phone] F: [phone] F: [phone] F: [phone] Physical Therapy Plan of Care Date of Evaluation: Date of Surgery: NA Diagnosis: Unilateral primary OA of R hip Assessment: Gina is a 41 year old female who is referred to PT for 'unilateral primary OA of R hip . Pt reports of having hip pain for last 4-5 years. Denies any trauma or fall. On PT examination pt was presented with TTP over B greater trochanter, 8/10 in B hip with weight bearing, decreased B hip ROM, decreases muscle strength, altered posture, balance and gait. Due to these impairments she has difficulty with ADLS requiring her to stand, walk and bend over. She lives in halfway. She would benefit from skilled PT to address the aforementioned impairments and improve tolerance to functional activities. Frequency and Duration: The patient will be seen 2/week for 4 weeks Short Term Goals: 1. Pt will have 50% decrease in pain which will enable her to sleep through the night in 2 weeks. 2. Pt will be able to move her hip through all planes of motion with a pain no more than 2/10 which will enable her to dress her lower body in 3 weeks Well Control Instructor Goals: 1. Pt will demonstrate an increase in muscle strength by 1 grade which will enable her to walk for 30 minutes in 4 weeks. 2. Pt will be independent with HEP for symptom management and maintenance following d/c in 4 weeks. Treatment Plan: Modalities to reduce pain, spasms and effusion. Manual therapy to restore motion and function. Therapeutic exercise to improve strength and flexibility. Neuromuscular re-education for posture and balance. Therapeutic activities to return to functional activities of daily living. Electronically signed by: Evonne Bishop PT DPT Please sign and return to therapist. Thank you for your referral.
--- NOTE | 2021-12-15 14:35 | MHC.PT.DC ---
[facility] [place] Office [place] Office [place] Office [address] [phone] F: [phone] F: [phone] F: [phone] F: [phone] Physical Therapy Discharge Report Diagnosis: Unilateral primary OA of R hip Date of Surgery: NA Date of Evaluation: 11/27/21 Date of Discharge: 12/15/21 Treatments to Date: 1 Cancellations to Date: No Shows to Date: Discharge Status: Patient Elected to Stop Discharge Summary: Gina called and d/c self from therapy stating she did not want to do PT at this time. She has therefore been d/c from therapy today. Electronically signed by: Evonne Bishop PT DPT Please sign and return to therapist. Thank you for your referral.
== END 2021-12-15 14:36 | disposition home or self-care (01) ==
LOC: HO.PT 12:22
PROVIDERS: Visit Provider Physician Assistant
DX: M16.11 Unilateral primary osteoarthritis, right hip (principal)
CPT/HCPCS: 97110; 97161

== ENCOUNTER 2021-12-11 07:59 | Outpatient (REF) | payer OTHER, SELFPAY ==
[2021-12-11 11:51] LABS: Neutrophils Absolute Auto 6.4 x10*3/uL (2.0-8.3); White Blood Count 8.8 X10*3/uL (4.8-10.8)
== END 2021-12-11 08:00 | disposition home or self-care (01) ==
LOC: HO.LAB 07:59
PROVIDERS: Absent Provider Psychiatry & Neurology Psychiatry; Visit Provider Physician Assistant
DX: Z79.899 Other long term (current) drug therapy (principal)
CPT/HCPCS: 36415; 85048; 99202

== ENCOUNTER 2021-12-25 12:39 | Outpatient (REF) | payer OTHER, SELFPAY ==
[2021-12-25 13:32] LABS: MANUAL DIFF FLAG NO
[2021-12-25 14:40] LABS: Basophils Percent Auto 0.3 % (0-2); Eosinophils Absolute Auto 0.1 X10*3/uL (0.0-0.4); Eosinophils Percent Auto 0.9 % (0-4); Hemoglobin 14.9 g/dl (12.0-16.0); Imm Gran Abs Auto 0.04 X10*3/uL (0.00-0.03); Imm Gran Pct Auto 0.4 % (0.0-0.4); Lymphocytes Absolute Auto 1.4 X10*3/uL (1.2-4.9); Lymphocytes Percent Auto 15.6 % (20-40); Mean Corpuscular HGB Conc 34.7 g/dl (31.0-35.0); Mean Corpuscular Hemoglobin 32.4 pg (27.0-33.0); Mean Corpuscular Volume 93.5 fL (80.0-98.0); Mean Platelet Volume 9.5 fL (9.4-12.3); Monocytes Absolute Auto 0.8 X10*3/uL (0.1-1.2); Monocytes Percent Auto 9.1 % (2-11); Neutrophils Absolute Auto 6.6 x10*3/uL (2.0-8.3); Neutrophils Percent Auto 73.7 % (45-73); Platelet Count 383 X10*3/uL (160-400); Red Cell Distribution Width 13.3 % (11.0-16.0)
== END 2021-12-25 12:40 | disposition home or self-care (01) ==
LOC: HO.LABR 12:39
PROVIDERS: PCP Psychiatry & Neurology Psychiatry; Visit Provider Psychiatry & Neurology Psychiatry
DX: Z79.899 Other long term (current) drug therapy (principal)
CPT/HCPCS: 36415; 85025

== ENCOUNTER 2021-12-31 22:29 | Emergency (ER) | payer OTHER, SELFPAY ==
--- NOTE | ~2021-12-31 | XR_ITS ---
EXAMINATION: PELVIS AND LEFT HIP, LEFT KNEE CLINICAL INFORMATION: Knee and hip pain COMPARISON: Right hip 09/25/2021 TECHNIQUE: Single view pelvis with 3 additional views left hip, 4 views left knee FINDINGS: Severe degenerative changes are present in the right hip which appear to have progressed slightly when compared to 09/25/2021. No fracture is seen. Left hip shows no significant degenerative change of fracture. There is sclerosis involving the left SI joint. Tricompartmental degenerative changes are present in the knee most marked in the medial compartment with narrowing and osteophyte formation. Some mild marginal tibial osteophytes are noted laterally along the right side of the tibial spines. Small posterior osteophytes are present in the patella. A small joint effusion is present. No chondrocalcinosis. XR/XR hip LT min 2V IMPRESSION: 1. Severe degenerative changes right hip with relatively normal-appearing left hip. 2. Sclerotic left SI joint 3. Tricompartmental degenerative changes left knee most marked in the medial compartment
--- NOTE | ~2021-12-31 | XR_ITS ---
EXAMINATION: PELVIS AND LEFT HIP, LEFT KNEE CLINICAL INFORMATION: Knee and hip pain COMPARISON: Right hip 09/25/2021 TECHNIQUE: Single view pelvis with 3 additional views left hip, 4 views left knee FINDINGS: Severe degenerative changes are present in the right hip which appear to have progressed slightly when compared to 09/25/2021. No fracture is seen. Left hip shows no significant degenerative change of fracture. There is sclerosis involving the left SI joint. Tricompartmental degenerative changes are present in the knee most marked in the medial compartment with narrowing and osteophyte formation. Some mild marginal tibial osteophytes are noted laterally along the right side of the tibial spines. Small posterior osteophytes are present in the patella. A small joint effusion is present. No chondrocalcinosis. XR/XR knee LT 4V IMPRESSION: 1. Severe degenerative changes right hip with relatively normal-appearing left hip. 2. Sclerotic left SI joint 3. Tricompartmental degenerative changes left knee most marked in the medial compartment
[2021-12-31 22:37] VITALS: BP 138/90; PULSE 98; O2SAT 98
--- NOTE | 2021-12-31 23:57 | ED_ITS ---
HPI - Extremity Problem General Chief complaint: General Medical Stated complaint: knee pain Time Seen by Provider: 12/31/21 23:04 Source: patient Mode of arrival: ambulatory Limitations: no limitations History of Present Illness HPI Narrative: no falls MD Complaint: extremity pain Onset (ago): hour(s) (earlier today) Pain Consistency: constant Location: left and other (hip and knee) Quality: aching and dull Radiation: distal Relieving factors: rest Exacerbating factors: weight bearing and walking Associated symptoms: denies other symptoms Context: other (limited staff at long-term she has been trying to get other residents to get her stuff at the store but they steal her money off EBT card, she then tried to use her walker to go to the store which is too far from the long-term and now she notes that her left leg and lower back are sore) Related Data Home Medications Medication Instructions Recorded Confirmed benztropine 2 mg tablet 1 tab PO BID 10/11/21 12/11/21 carbamazepine 100 mg 1 tab PO DAILY 10/11/21 12/11/21 tablet,extended release,12 hr carbamazepine 200 mg 1 tab PO BID 10/11/21 12/11/21 tablet,extended release,12 hr clozapine 100 mg tablet 1 tab PO BEDTIME 10/11/21 12/11/21 clozapine 50 mg tablet 1 tab PO BEDTIME 10/11/21 12/11/21 duloxetine 60 mg capsule,delayed 1 cap PO QAM 10/11/21 12/11/21 release lisinopril 10 mg tablet 1 tab PO DAILY 10/11/21 12/11/21 loratadine 10 mg tablet 1 tab PO DAILY 10/11/21 12/11/21 melatonin 3 mg tablet 6 mg PO BEDTIME 10/11/21 12/11/21 meloxicam 15 mg tablet 1 tab PO DAILY 10/11/21 12/11/21 olanzapine 10 mg tablet 1 tab PO BID PRN 10/11/21 12/11/21 furosemide 40 mg tablet 1 tab PO DAILY 10/12/21 12/11/21 levothyroxine 100 mcg tablet 1 tab PO DAILY 10/12/21 12/11/21 paliperidone palmitate 234 mg/1.5 234 mg IM Q4W 10/12/21 12/11/21 [facility] ropinirole 0.5 mg tablet 1.5 mg PO BEDTIME 10/12/21 12/11/21 Allergies Allergy/AdvReac Type Severity Reaction Status Date / Time banana [Banana] Allergy Severe ANAPHYLAXIS Verified 10/26/21 10:56 bee pollen [BEE STINGS] Allergy Unknown SWELLING Verified 10/26/21 10:56 cephalexin [Keflex] Allergy Unknown Unknown Verified 10/26/21 10:56 trazodone [TRAZODONE] Allergy Unknown BODY Verified 10/26/21 10:56 SITFFENS peanut [PEANUT] AdvReac Unknown TACHYCARDIA Verified 10/26/21 10:56 pistachio nut AdvReac Unknown TACHYCARDIA Verified 10/26/21 10:56 From KEFLEX Allergy Unknown UNKNOWN Uncoded 04/11/21 04:26 Review of Systems Review of Systems: Constitutional : No Fever, No Chills ENT/Mouth : No Ear Pain, No Hoarseness, No sore throat Eyes: No Eye Pain, No Swelling, No Redness, No Foreign Body Cardiovascular : No Chest Pain, No SOB Respiratory : No Cough, No Dyspnea Gastrointestinal : No Nausea, No Vomiting, No Diarrhea, No abdominal Pain Genitourinary : No Dysuria, No Hematuria Musculoskeletal : positive joint pain, No Myalgias, No Joint Swelling Skin : No Skin lacerations, No rash Neuro : No Weakness, No Numbness, No Loss of Consciousness, No Dizziness, No Headache Psych : No Anxiety/Panic, No Depression PMFSH Past Medical History Attestation statement: The following information was validated with the patient. Medical History Asthma Bipolar disorder Chronic post-traumatic stress disorder (PTSD) Chronic post-traumatic stress disorder (PTSD) Class 3 obesity Diabetes HTN (hypertension) Hypothyroidism PCOS (polycystic ovarian syndrome) Polysubstance abuse Psychosis Schizoaffective disorder Substance abuse Suicidal ideation Suicide attempt Social History Social History Household Members: Other Household Members Other:: long-term Housing: Other Housing Other:: long-term Do you presently have visiting nurse or other home services: No Unable to assess alcohol history related to: Unknown Patient Tobacco Use Status: Current everyday Tobacco user Tobacco use type: Cigarette Cigarette Packs Per Day: 1 Cigarettes Per Day: 20.0 e-Cigarette/Vaping Use: Currently Using Second Hand Smoke Exposure: Yes Substance Use Type: Heroin Advance Directives: No service: No Current occupational status: disabled 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 Oriented X3. No acute distress. Eyes: Pupils equal, round and reactive to light. ENT: Pharynx normal. Neck: Normal inspection. Neck supple. CVS: Normal heart rate and rhythm. Pulses normal. Respiratory: No respiratory distress. Breath sounds normal. Abdomen: Soft and non-tender obese Skin: Skin warm and dry. Normal skin color. Normal skin turgor. Extremities: No lower extremity edema. L knee no effusion but reports pain with ROM and hip pain states I need a wheelchair not a walker. Neuro: Oriented X 3. No motor deficit. No sensory deficit. Course Course Course Narrative: I offered to keep her for case management but she refuses and states she has a disease case manager rn who is helping her with WC needs and disability needs in the house no acute fractures can be DC at this time declined further help you think I come here for motrin? I want something better. Give me something good to get me through the weekend. When I told her I was not going to be prescribing her any narcotics for her pain and that she needs to follow up with her primary care since this is a chronic issue she is very upset and agitated. She is making threats and is agitated. I bet you only give the good drugs to the druggies. The patient is basically attempting to bully and agitate staff since she is not getting something good for her pain. Patient was offered motrin or toradol shot along with flexeril. She even notes she has good follow up with PT and MRIs for her right hip and possible surgery. She also notes she was going to see pain management for her R hip. MDM - Extremity (Nontraumatic) MDM Narrative Medical decision making narrative: 41 yo female with hx of asthma, bipolar, obesity, arthritis, HTN here with c/o L hip and knee pain after having to walk farther than usual today due to lack of staff in her long-term. She notes she is trying to get red bulls at the store with her EBT. She did not fall. Suspect she just overused and strained her left leg. There is no signs of swelling, compartments are soft and compressible. Distal NV intact. xrays of L knee and hip ordered. PO pain relief. Declines CM interventions. Discharge Plan Discharge Clinical Impression: Lower extremity pain Qualifiers: Laterality: left Qualified Code(s): M79.605 - Pain in left leg Knee strain Qualifiers: Encounter type: initial encounter Laterality: left Qualified Code(s): S86.912A - Strain of unspecified muscle(s) and tendon(s) at lower leg level, left leg, initial encounter Patient Disposition: Home, Self-Care Instructions: Knee Pain (ED), Leg Pain (ED) Additional Instructions: return to ED for any worsening symptoms or concerns please follow up with your doctor if not better Severe degenerative changes are present in the right hip which appear to have progressed slightly when compared to 09/25/2021. No fracture is seen. Left hip shows no significant degenerative change of fracture. There is sclerosis involving the left SI joint. Tricompartmental degenerative changes are present in the knee most marked in the medial compartment with narrowing and osteophyte formation. Some mild marginal tibial osteophytes are noted laterally along the right side of the tibial spines. Small posterior osteophytes are present in the patella. A small joint effusion is present. No chondrocalcinosis. Prescriptions: No Action clozapine 100 mg tablet 1 tab PO BEDTIME 0RF meloxicam 15 mg tablet 1 tab PO DAILY 0RF carbamazepine 100 mg tablet extended release 12 hr 1 tab PO DAILY 0RF olanzapine 10 mg tablet 1 tab PO BID PRN (Reason: psychosis) 0RF melatonin 3 mg tablet 6 mg PO BEDTIME 0RF carbamazepine 200 mg tablet extended release 12 hr 1 tab PO BID 0RF lisinopril 10 mg tablet 1 tab PO DAILY 0RF benztropine 2 mg tablet 1 tab PO BID 0RF loratadine 10 mg tablet 1 tab PO DAILY 0RF duloxetine 60 mg capsule,delayed release(DR/EC) 1 cap PO QAM 0RF clozapine 50 mg tablet 1 tab PO BEDTIME 0RF furosemide 40 mg tablet 1 tab PO DAILY 0RF levothyroxine 100 mcg tablet 1 tab PO DAILY 0RF Invega Sustenna 234 mg/1.5 mL syringe 234 mg IM Q4W 0RF ropinirole 0.5 mg tablet 1.5 mg PO BEDTIME 0RF Referrals: Physician,Unknown J [Primary Care Provider] - 2 days (please follow up with your primary care doctor in regards to your right hip)
[2022-01-01] MEDS: Cyclobenzaprine HCl 10 MG TABLET PO (00:45)
[2022-01-01] MEDS: Ketorolac Tromethamine 60 MG/2 ML VIAL IM (00:50)
== END 2022-01-01 02:00 | disposition home or self-care (01) ==
LOC: HO.ED 01-01 00:11
PROVIDERS: Emergency Provider Emergency Medicine
DX: M79.605 Pain in left leg (principal); S86.912A Strain of unspecified muscle(s) and tendon(s) at lower leg level, left leg, initial encounter; X50.9XXA Other and unspecified overexertion or strenuous movements or postures, initial encounter; E11.9 Type 2 diabetes mellitus without complications; I10 Essential (primary) hypertension; F17.200 Nicotine dependence, unspecified, uncomplicated; Y93.01 Activity, walking, marching and hiking; Y92.480 Sidewalk as the place of occurrence of the external cause; Y99.9 Unspecified external cause status
CPT/HCPCS: 73502; 73564; 99283; 99284; J1885

== ENCOUNTER → 2022-01-28 13:33 | Outpatient (BNVA) | payer OTHER, SELFPAY | PROVIDERS: Visit Provider Physician Assistant | DX: M16.12 Unilateral primary osteoarthritis, left hip (principal) | CPT/HCPCS: 99212 ==

== ENCOUNTER 2022-02-05 12:40 | Outpatient (REF) | payer OTHER, SELFPAY ==
[2022-02-05 12:57] LABS: MANUAL DIFF FLAG NO
[2022-02-05 13:20] LABS: Basophils Percent Auto 0.3 % (0-2); Eosinophils Absolute Auto 0.1 X10*3/uL (0.0-0.4); Hematocrit 43.2 % (37.0-47.0); Hemoglobin 14.8 g/dl (12.0-16.0); Imm Gran Abs Auto 0.04 X10*3/uL (0.00-0.03); Imm Gran Pct Auto 0.5 % (0.0-0.4); Lymphocytes Absolute Auto 1.4 X10*3/uL (1.2-4.9); Mean Corpuscular HGB Conc 34.3 g/dl (31.0-35.0); Mean Corpuscular Hemoglobin 32.5 pg (27.0-33.0); Mean Corpuscular Volume 94.9 fL (80.0-98.0); Monocytes Absolute Auto 0.8 X10*3/uL (0.1-1.2); Monocytes Percent Auto 10.2 % (2-11); Neutrophils Absolute Auto 5.6 x10*3/uL (2.0-8.3); Platelet Count 368 X10*3/uL (160-400); Red Blood Count 4.55 X10*6/uL (4.20-5.50); Red Cell Distribution Width 13.5 % (11.0-16.0); White Blood Count 7.9 X10*3/uL (4.8-10.8)
== END 2022-02-05 12:41 | disposition home or self-care (01) ==
LOC: HO.LABR 12:40
PROVIDERS: Visit Provider Psychiatry & Neurology Psychiatry
DX: Z79.899 Other long term (current) drug therapy (principal)
CPT/HCPCS: 36415; 85025

== ENCOUNTER 2022-02-15 13:17 | Outpatient (REF) | payer OTHER, SELFPAY ==
--- NOTE | ~2022-02-15 | FL_ITS ---
EXAMINATION: XR ARTHROGRAM HIP, LEFT CLINICAL INFORMATION: Primary osteoarthritis COMPARISON: 01/01/2022 TECHNIQUE/FINDINGS: Risks and benefits of this procedure were discussed with the patient, and informed consent was obtained. A final timeout was performed. The patient was prepped and draped in the usual sterile fashion. Using sterile technique, 1% lidocaine for local anesthesia, and intermittent fluoroscopic guidance, a 5 inch 22-gauge spinal needle was advanced into the left hip joint. A small amount of Omnipaque 300 contrast material was utilized to confirm needle placement. Subsequently, a mixture of 1 mL Depo-Medrol (80 mg) and 4 mL of Bupivacaine 0.25% was injected. Patient tolerated the procedure well with no immediate complications. Preprocedure pain: 8/10. Postprocedure pain: Patient was in significant back pain. Stated less than 8 . FLUOROSCOPY TIME: 0.4 minutes DOSE AREA PRODUCT: 2.906 Gy-cm2 (marin-centimeter squared) FL/FL arthrogram hip LT IMPRESSION: Successful fluoroscopic-guided injection of the left hip joint with anesthetic and steroid.
[2022-02-15 14:23] LABS: MANUAL DIFF FLAG NO
[2022-02-15 14:41] LABS: Basophils Percent Auto 0.5 % (0-2); Eosinophils Absolute Auto 0.1 X10*3/uL (0.0-0.4); Eosinophils Percent Auto 1.4 % (0-4); Hematocrit 43.3 % (37.0-47.0); Hemoglobin 14.8 g/dl (12.0-16.0); Imm Gran Abs Auto 0.04 X10*3/uL (0.00-0.03); Imm Gran Pct Auto 0.5 % (0.0-0.4); Lymphocytes Absolute Auto 1.7 X10*3/uL (1.2-4.9); Lymphocytes Percent Auto 21.6 % (20-40); Mean Corpuscular HGB Conc 34.2 g/dl (31.0-35.0); Mean Corpuscular Hemoglobin 32.7 pg (27.0-33.0); Mean Corpuscular Volume 95.6 fL (80.0-98.0); Mean Platelet Volume 9.2 fL (9.4-12.3); Monocytes Absolute Auto 0.7 X10*3/uL (0.1-1.2); Monocytes Percent Auto 9.1 % (2-11); Neutrophils Absolute Auto 5.4 x10*3/uL (2.0-8.3); Neutrophils Percent Auto 66.9 % (45-73); Platelet Count 333 X10*3/uL (160-400); Red Blood Count 4.53 X10*6/uL (4.20-5.50); Red Cell Distribution Width 13.5 % (11.0-16.0)
== END 2022-02-15 13:18 | disposition home or self-care (01) ==
LOC: HO.XRAY 13:17
PROVIDERS: Absent Provider Psychiatry & Neurology Psychiatry; Visit Provider Physician Assistant
DX: M16.12 Unilateral primary osteoarthritis, left hip (principal); Z79.899 Other long term (current) drug therapy
CPT/HCPCS: 27093; 36415; 73525; 85025

== ENCOUNTER 2022-03-12 10:01 | Outpatient (REF) | payer OTHER, SELFPAY ==
[2022-03-12 10:24] LABS: MANUAL DIFF FLAG NO
[2022-03-12 10:45] LABS: Basophils Percent Auto 0.2 % (0-2); Eosinophils Absolute Auto 0.1 X10*3/uL (0.0-0.4); Hematocrit 41.3 % (37.0-47.0); Hemoglobin 14.5 g/dl (12.0-16.0); Imm Gran Abs Auto 0.06 X10*3/uL (0.00-0.03); Imm Gran Pct Auto 0.7 % (0.0-0.4); Lymphocytes Absolute Auto 1.4 X10*3/uL (1.2-4.9); Lymphocytes Percent Auto 14.8 % (20-40); Mean Corpuscular HGB Conc 35.1 g/dl (31.0-35.0); Mean Corpuscular Hemoglobin 32.4 pg (27.0-33.0); Mean Corpuscular Volume 92.2 fL (80.0-98.0); Mean Platelet Volume 8.9 fL (9.4-12.3); Monocytes Absolute Auto 0.9 X10*3/uL (0.1-1.2); Neut%MD 73.3 %; Neutrophils Absolute Auto 6.8 x10*3/uL (2.0-8.3); Neutrophils Percent Auto 73.3 % (45-73); Platelet Count 320 X10*3/uL (160-400); Red Blood Count 4.48 X10*6/uL (4.20-5.50); Red Cell Distribution Width 13.4 % (11.0-16.0); WBCANC 9.2 X10*3/uL; White Blood Count 9.2 X10*3/uL (4.8-10.8)
== END 2022-03-12 10:02 | disposition home or self-care (01) ==
LOC: HO.LABR 10:01
PROVIDERS: Visit Provider Psychiatry & Neurology Psychiatry
DX: Z79.899 Other long term (current) drug therapy (principal)
CPT/HCPCS: 36415; 85025